=== PATIENT | female | born 1995 | race Caucasian/White ===

== ENCOUNTER 2021-01-01 14:00 | Outpatient (RCR) | payer BC, SELFPAY ==
--- NOTE | 2020-12-25 16:34 | PTOPEVAL ---
INITIAL PHYSICAL THERAPY EVALUATION and PLAN OF CARE Thank you for referring Gabby Holt to [facility] [place].? Gabby is scheduled to be seen for physical therapy? 1x/week for 4 weeks. Please review, sign, date and return this plan of care PIERRE. I agree with and certify that the following plan of care is medically necessary. Referring Physician Date Admitting Provider: Attending Provider: Sylvia Padron MD Referring Provider: Yulissa Rudolph CNM *PT Outpatient Evaluation Start: 12/25/20 15:07 Freq: Status: Active Protocol: Document 12/25/20 15:05 BERNARDINO (Rec: 12/25/20 16:34 BERNARDINO [id number]) Therapy Assessment Status Assessment Status Assessment Status Evaluation Outpatient Past Medical History Past Medical History Source of Past Medical History Patient Musculoskeletal History Hx Fractures Yes: R wrist as a child HEENT History Hx Tonsillectomy Yes Reproductive History Hx Section Yes: 01/11/2020 Evaluation Information Problem Diagnosis Diastisis recti, pelvic floor dysfunction Onset 01/11/2020 Subjective Information with twins - born at Query Text:As Reported By Patient/ 30 wks - 3# 8 oz, 3# 11 oz Family Emergency C section - has had lower back pain and hip pain since surgery. 1 twin was breech, 1 twin was head down - water broke -son's cord was prolapsed - C section happened very quickly Achiness with lower back and hips, stiff in the mornings - takes 1/2 hour for this to loosen up. Sleeps okay. If standing in one spot or carrying children around - will get sore. Bending over is uncomfortable - soreness. 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 Home Meds Must Be Re-entered With Each Visit. Home Setting Home Type Multiple Levels
--- NOTE | 2021-01-24 10:59 | PCPTNOTE ---
Patient called & cancelled scheduled appointments due to having increase in R knee pain. Awaiting work up for R knee before continuing with current PT.
--- NOTE | 2021-01-24 11:24 | PCPTNOTE ---
PHYSICAL THERAPY DISCHARGE SUMMARY Admitting Provider: Attending Provider: Sylvia Padron MD Patient:Gabby Holt Date of :1995 Gabby phoned to cancel her remaining appointments due to having increased R knee pain and wanting to undergo follow up care in regards to her knee. She was last seen 01/01/21, therefore she will be discharged at this time. Patient?s initial visit was on 12/25/2020 15:00 and she had a total of 2 visits. The goals have been partially met. Thank you for referring Gabby to [facility]. Please review, sign, date and return this discharge summary PIERRE. I have been updated about Gabby's current status and I agree with discharge from the above service at this time. Referring Physician Date
== END 2021-01-25 14:43 | disposition home or self-care (01) ==
LOC: ANHPT 14:00
PROVIDERS: PCP Advanced Practice Midwife; Referring Provider Advanced Practice Midwife; Visit Provider Obstetrics & Gynecology
DX: M62.9 Disorder of muscle, unspecified (principal)
CPT/HCPCS: 97110; 97140; 97162

== ENCOUNTER 2023-03-23 09:48 | Inpatient (IN) | payer MEDICAID, SELFPAY ==
[2023-03-23] VITALS (49 sets, daily range): BP systolic 107–143; BP diastolic 62–89; PULSE 59–112; RESP 13–20; TEMP 36.2–37.6; O2SAT 97–100; BMI 33.8
[2023-03-23 10:45] LABS: Basophils Percent Auto 0.3 % (0.2-1.2); Eosinophils Absolute Auto 0.1 K/mm3 (0-0.3); Eosinophils Percent Auto 0.7 % (0-4.4); Hematocrit 36.2 % (37.0-47.0); Immature Granulocyte Absolute 0.05 K/mm3 (0.00-0.031); Immature Granulocyte Percent A 0.5 % (0-0.5); Lymphocytes Absolute Auto 1.69 K/mm3 (0.9-3.2); Lymphocytes Percent Auto 17.8 % (18.3-44.2); Mean Corpuscular HGB Conc 33.1 g/dl (32-36); Mean Corpuscular Hemoglobin 27.5 pg (26-34); Mean Corpuscular Volume 82.8 fl (80-100); Mean Platelet Volume 9.9 fl (7.4-10.4); Monocytes Absolute Auto 0.5 K/mm3 (0.1-0.6); Neutrophils Absolute Auto 7.2 K/mm3 (1.3-6.7); Neutrophils Percent Auto 75.7 % (45.5-73.1); Platelet Count Result 200 k/mm3 (150-375); Red Blood Count 4.37 M/mm3 (4.2-5.4); Red Cell Distribution Width 13.5 % (11.5-14.5); White Blood Count 9.5 K/mm3 (4.5-10.0)
[2023-03-23] MEDS: LACTATED RINGERS 1,000 ML 125 ML IV CONT ×2 (10:52→11:33)
--- NOTE | 2023-03-23 11:26 | WPDANESEPPF ---
Anes - Initial Pre Proc Eval Procedure: Operation Date: 03/23/23 12:00 Proposed Procedures p Repeat Section - Sylvia Padron MD Date/Time: 03/23/23 11:26 Surgeon: Sylvia Padron MD Pre Op Diagnosis: C/S Patient Data Age: 27 Gender: F Height: 1.75 m Weight: 104 kg Last Vital Signs Pulse 108 H 03/23/23 11:16 BP 134/87 03/23/23 11:16 O2 Del Method Room Air 03/23/23 11:09 Allergies Allergy/AdvReac Type Severity Reaction Status Date / Time No Known Allergies Allergy Verified 02/26/23 13:34 Home Medications Medication Instructions Recorded Confirmed Type prenat.vits,blanquita,kxh-sili-feobt 1 tablet 02/26/23 History Laboratory Tests 03/23/23 10:38 WBC 9.5 K/mm3 (4.5-10.0) RBC 4.37 M/mm3 (4.2-5.4) Hgb 12.0 g/dL (12.0-15.0) Hct 36.2 L % (37.0-47.0) MCV 82.8 fl (80-100) MCH 27.5 pg (26-34) MCHC 33.1 g/dl (32-36) RDW 13.5 % (11.5-14.5) Plt Count 200 k/mm3 (150-375) MPV 9.9 fl (7.4-10.4) Immature Gran % (Auto) 0.5 % (0-0.5) Neut % (Auto) 75.7 H % (45.5-73.1) Lymph % (Auto) 17.8 L % (18.3-44.2) [place] % (Auto) 5.0 % (2.6-8.5) Eos % (Auto) 0.7 % (0-4.4) Baso % (Auto) 0.3 % (0.2-1.2) Lymph # (Auto) 1.69 K/mm3 (0.9-3.2) [place] # (Auto) 0.5 K/mm3 (0.1-0.6) Eos # (Auto) 0.1 K/mm3 (0-0.3) Baso # (Auto) 0.0 K/mm3 (0.0-0.1) Abs Immat Gran (auto) 0.05 H K/mm3 (0.00-0.031) Absolute Neuts (auto) 7.2 H K/mm3 (1.3-6.7) Absolute Nucleated RBC 0.0 K/mm3 (0.0-0.012) Nucleated RBC % 0.0 % (0.0-0.2) RPR Pending Blood Type O Positive Antibody Screen Negative Patient hx anesthesia problems: none Family hx anesthesia problems: none Results Review: All pre-operative results and documents have been reviewed as part of the pre-operative evaluation. [facility] Surgical History Surgical History History of section Family History Family History Other Patient denies significant medical history Social History Social History Smoking status: Never smoker Substance use: never Lack of Transportation: No Lack of Food: Never True Current Housing: I Have Housing Concerned About Future Housing: No Difficulty Paying Gas/Electric Bills: No Difficulty Paying for Meds: No Currently Unemployed: No Education: High School Diploma/GED Difficulty w/ Childcare or Family Care: No Spiritual care concerns: No Anes - Eval Final PreProcedure Day of Procedure 03/23/23 11:26 Patient weight: obese Heart: regular rate and rhythm Lungs: clear to auscultation Airway: Mallampati scale class II Neurological: alert and oriented Last oral intake: >/= 8 hours ASA classification: II Emergent: no Anesthetic plan: proceed Anesthesia type and monitoring: regional spinal and standard monitoring Results Review: All pre-operative results and documents have been reviewed as part of the pre-operative evaluation. Informed Consent: The patient's anesthetic plan and its attendant risks and benefits were discussed with the patient/family/POA. Questions were solicited and answers provided to the satisfaction of the patient/family/POA.
--- NOTE | 2023-03-23 12:19 | PM.IMHP ---
H&P: HPI History of Present Illness Date/Time: 03/23/23 12:19 Chief Complaint: Term gestation Narrative: 27-year-old multiparous with a previous delivery presents at term for repeat . She has no complaints. She denies any chest pain or shortness of breath. She denies any nausea, vomiting, fever, chills. She understands there is risk to the procedure. She understands that injuries may occur that result in hospitalization, more surgery, severe illness. Review of Systems Review of Systems: All systems reviewed & are unremarkable except as noted in HPI and below Constitutional: Constitutional: Denies chills, Denies fatigue, Denies fever(s) and Denies weakness Eyes: Eyes: Denies blurry vision, Denies change in vision, Denies loss of peripheral vision, Denies loss of vision, Denies other visual disturbances and Denies eye pain ENT: Denies vertigo, Denies dizziness, Denies hearing loss, Denies mouth pain, Denies nasal obstruction, Denies neck mass and Denies neck pain Cardiovascular: Cardiovascular: Denies chest pain, Denies diaphoresis, Denies syncope, Denies leg edema and Denies dyspnea Respiratory: Respiratory: Denies chest congestion, Denies cough, Denies hemoptysis, Denies dyspnea and Denies wheezing Gastrointestinal: Gastrointestinal: Denies abdominal pain, Denies constipation, Denies diarrhea, Denies nausea and Denies vomiting Genitourinary: Genitourinary: Denies hematuria, Denies change in libido, Denies nocturia, Denies genital lesions, Denies flank pain and Denies urinary urgency Musculoskeletal: Musculoskeletal: Denies abnormal gait, Denies back pain, Denies myalgias, Denies arthralgias, Denies joint swelling, Denies muscle weakness and Denies neck pain Integumentary/Breasts: Skin/Breast: Denies swelling, Denies breast pain, Denies breast mass, Denies dry skin, Denies nipple discharge, Denies unusual bruising and Denies jaundice Neurologic: Denies Neuro-related abnormal movements, Denies Abnormal speech present, Denies abnormal gait, Denies behavioral changes, Denies confusion, Denies vertigo, Denies dizziness, Denies syncope, Denies loss of vision, Denies memory loss, Denies convulsions and Denies weakness Psychiatric: Psychiatric: Denies abnormal sleep pattern, Denies behavioral changes, Denies change in libido, Denies confusion, Denies depression, Denies anhedonia and Denies memory loss Endocrine: Endocrine: Reports no additional endocrine complaints, Denies change in libido and Denies fatigue Hematologic/Lymphatic: Hematologic/Lymphatic: Reports no additional hematologic/lymphatic complaints Allergic/Immunologic: Allergic/Immunologic: Reports no additional allergic/immunologic complaints and Denies wheezing PMFSH Surgical History Surgical History History of section Family History Family History Other Patient denies significant medical history Social History Social History Smoking status: Never smoker Substance use: never Lack of Transportation: No Lack of Food: Never True Current Housing: I Have Housing Concerned About Future Housing: No Difficulty Paying Gas/Electric Bills: No Difficulty Paying for Meds: No Currently Unemployed: No Education: High School Diploma/GED Difficulty w/ Childcare or Family Care: No Spiritual care concerns: No Meds Home Medications and Allergies Home Medications Medication Instructions Recorded Confirmed Type prenat.vits,blanquita,jch-pifq-vmgyq 1 tablet 02/26/23 History Allergies Allergy/AdvReac Type Severity Reaction Status Date / Time No Known Allergies Allergy Verified 02/26/23 13:34 Vital Signs Vital Signs - 24 hr 03/23/23 10:52 03/23/23 11:01 03/23/23 11:16 Pulse Rate 106 H 112 H 108 H Blood Pressure 135/84 131/84 134/87 Oxygen Delivery
[2023-03-23] MEDS: ceFAZolin 2 GM/D5W 50 ML 2 GM/50 ML BAG IVPB (12:24)
--- NOTE | 2023-03-23 12:27 | WPDHPUPDATE1 ---
History and Physical Update Update Date/Time: 03/23/23 12:27 History and Physical has been reviewed, including an updated exam of the patient. There are NO changes in the patient's condition. Risks, benefits, and alternatives have been discussed and questions answered. Patient agrees to proceed with procedure.
--- NOTE | 2023-03-23 13:19 | W.PM.PROC2 ---
Procedure Note - Detailed Date of Procedure 03/23/23 Pre-op Diagnosis C/S, previous Post-op Diagnosis Same Procedure Performed Low-transverse section Surgeon Sylvia Padron MD Anesthesia Spinal Indications previous vicente Findings Normal gestational maternal anatomy, average size infant, normal Apgars. Description of Procedure The patient was taken the operating room. She was prepped and draped in dorsal supine position with a leftward tilt. This was done after spinal anesthetic was applied. A low-transverse skin incision was made and carried down till of the fascia with the knife. The fascial incision was made with the knife. The fascial incision was extended laterally with Parr scissors. The fascia was tented upward superiorly and inferiorly the rectus muscles were dissected off bluntly. The rectus muscles were the midline. The preperitoneal fat and peritoneum were dissected open bluntly at the superior aspect of the rectus muscles. The peritoneal incision was extended superior and inferior with good position of bladder. The uterine incision was made with a scalpel down to the level of the amniotic cavity. The amniotic cavity was entered bluntly. The was delivered. The cord was clamped and cut and the was handed off to waiting pediatric staff. Cord bloods were obtained. The placenta was removed manually. The uterus was exteriorized. The uterus was cleared of all clots, debris and membranes. The uterus was closed in 0 Vicryl running lock fashion. An imbricating over a was placed along the incision line as well. The uterus was returned to the abdomen. The gutters were cleared of all clots and debris. The fascia was closed with 0 Vicryl running fashion. The subcutaneous tissue was irrigated pinpoint bleeders were cauterized. The skin was closed with subcuticular absorbable keisha. The skin incision line was covered with glue. The patient tolerated the procedure well. She has taken recovery room in stable condition. Sponge lap and needle counts were correct x2. Complications No immediate complications Condition Stable Disposition PACU
[2023-03-23] MEDS: OXYTOCIN 30 UNITS/NS 500 ML 30 UNITS/500 ML BAG 125 UNITS IV CONT (14:07)
--- NOTE | 2023-03-23 16:59 | OBPPTRN ---
1547-Patient transferred to post room #282 via stretcher. Support person present. Oriented to unit, room, information board, rooming in, admission packet and security measures. Patient verbalizes understanding.
[2023-03-23] MEDS: DEXTROSE 5%/0.45% SOD CHL 1,000 ML 125 ML IV CONT (18:25)
[2023-03-23] MEDS: IBUPROFEN 600 MG TABLET PO (23:15)
[2023-03-24] MEDS: HYDROcodone/acetaminophen (*CRX) 5-325 MG TABLET 1 TAB PO ×4 (03:58→20:44)
[2023-03-24 04:12] VITALS: BP 110/71; PULSE 92; RESP 18; TEMP 36.8; O2SAT 97
[2023-03-24 04:43] LABS: Basophils Percent Auto 0.3 % (0.2-1.2); Eosinophils Absolute Auto 0.1 K/mm3 (0-0.3); Eosinophils Percent Auto 0.6 % (0-4.4); Hematocrit 29.2 % (37.0-47.0); Hemoglobin 9.6 g/dL (12.0-15.0); Immature Granulocyte Absolute 0.07 K/mm3 (0.00-0.031); Immature Granulocyte Percent A 0.6 % (0-0.5); Lymphocytes Absolute Auto 1.03 K/mm3 (0.9-3.2); Lymphocytes Percent Auto 9.5 % (18.3-44.2); Mean Corpuscular HGB Conc 32.9 g/dl (32-36); Mean Corpuscular Hemoglobin 27.5 pg (26-34); Mean Corpuscular Volume 83.7 fl (80-100); Mean Platelet Volume 10.3 fl (7.4-10.4); Monocytes Absolute Auto 0.7 K/mm3 (0.1-0.6); Monocytes Percent Auto 6.3 % (2.6-8.5); Neutrophils Percent Auto 82.7 % (45.5-73.1); Platelet Count Result 188 k/mm3 (150-375); Red Blood Count 3.49 M/mm3 (4.2-5.4); Red Cell Distribution Width 13.5 % (11.5-14.5); White Blood Count 10.9 K/mm3 (4.5-10.0)
[2023-03-24 07:28] LABS: Rapid Plasma Reagin Non-Reactive (NonReactive)
[2023-03-24 07:35] VITALS: BP 116/68; PULSE 87; RESP 16; TEMP 36.4; O2SAT 98
--- NOTE | 2023-03-24 07:39 | WPDANLDPN2 ---
Anes-Prog Note L&D Date/Time: 03/24/23 07:39 Comfortable throughout: section Neuraxial method: spinal Epidural/Spinal procedure site: clean & non-tender Neuro status: Neuro function grossly intact. Cardiovascular status: normal Respiratory status: normal Airway patency: baseline Mental status: baseline Post-Op hydration status: normal Vital Signs: Last Vital Signs Temp 36.8 C 03/24/23 04:12 Pulse 92 03/24/23 04:12 Resp 18 03/24/23 04:12 BP 110/71 03/24/23 04:12 Pulse Ox 97 03/24/23 04:12 O2 Del Method Room Air 03/24/23 04:12 Pain score (VAS): 2/10 I/O: Intake & Output 03/23/23 03/23/23 03/24/23 15:59 23:59 07:59 Intake Total 1000 1000 600 Output Total 725 1207 1850 Balance [phone] Post-procedural complaints: none Patient feedback: Patient satisfied with anesthetic care.
--- NOTE | 2023-03-24 07:40 | WPDANLDNPN2 ---
Anes-Prog Note L&D-Neuraxial Date/Time: 03/24/23 07:40 Neuraxial medications: intrathecal PF morphine Opiod-related complaints: none Patient feedback: Patient satisfied with post-operative pain management.
[2023-03-24] MEDS: POLYSACCHARIDE IRON COMPLEX 150 MG CAPSULE PO ×2 (08:01→17:03)
[2023-03-24] MEDS: DOCUSATE SODIUM 100 MG CAPSULE PO ×2 (08:02→17:03)
[2023-03-24] MEDS: MULTIVIT/MIN/PREN/FOL AC/IRON TABLET 1 TAB PO (08:02)
[2023-03-24] MEDS: IBUPROFEN 600 MG TABLET PO ×3 (08:02→20:44)
[2023-03-24 12:08] VITALS: BP 103/58; PULSE 79; RESP 16; TEMP 37.2; O2SAT 98
[2023-03-24 20:40] VITALS: BP 109/69; PULSE 86; RESP 16; TEMP 36.8
--- NOTE | 2023-03-25 07:32 | PM.OBPNVD ---
OB - PN: Subj Subjective Date/time seen: 03/25/23 07:32 pp day 2, section flatus present no complaints pain well managed plan d/c home OB - PN: Obj Data Labs 03/24/23 03:48 OB - PN A/P Plan day: 2 Plan: routine care and discharge home Time Spent With Patient Time: Total time spent is greater than 50% in coordination of care (as documented) at patient's floor/unit and/or counseling patient: Review of Systems Review of Systems: All systems reviewed & are unremarkable except as noted in HPI and below Exam Const: General: cooperative and healthy appearing Resp: Effort & Inspection: normal respiratory effort Cardio: Rate: regular rate Rhythm: regular rhythm GI: Other: Incision CDI Skin: General skin exam: normal color Neuro: General: patient oriented x3 Extrem: Right lower extremity: edema (trace bilaterally) Psych: Appearance: grossly normal
--- NOTE | 2023-03-25 07:35 | P.DS_ITS ---
DS: Admitting Diagnosis Discharge Date 03/25/23 Admitting Diagnosis repeat section DS: Discharge Diagnosis Discharge Diagnosis (1) Status post repeat low transverse section: Code(s): Z98.891 - History of uterine scar from previous surgery Status: Acute OB - DS: Summary OB Procedures : None OB Procedures Intrapartum: OB Procedures: : None Peripartum Data Procedures: Procedures Operation Date: 03/23/23 12:00 Actual Procedure Side Surgeon p Repeat Section Not Applicable Sylvia Padron MD Time Spent with Patient Time attestation: Total time spent providing and/or coordinating discharge services: Discharge Plan Discharge Attending physician on discharge: Sylvia Padron Discharging Clinician: Yulissa Rudolph Patient Disposition: Home, Self-Care Activity: pelvic rest Diet: regular Patient Instructions: Antibiotic Form Stand Alone Forms: General Discharge Information, General Discharge Instructions Follow-up/Referrals: Sylvia Padron MD [Physician] - 1 Week Yulissa Rudolph CNM [Certified Nurse Bacteriologist Medical] - Discharge Medications: New hydrocodone-acetaminophen 5-325 mg Tablet 1 tablet PO Q3H PRN (Reason: Moderate Pain (4-6)) Qty: 30 0RF Continued #2 Tablet 1 tablet Date of admission: 03/23/23 09:48 Primary Care Provider: PHYSICIAN,LABORER [employer]UMIN[employer]ING Admitting Provider: Sylvia Padron Attending physician on admission: Sylvia Padron Condition: Stable
[2023-03-25] MEDS: DOCUSATE SODIUM 100 MG CAPSULE PO (07:37)
[2023-03-25] MEDS: POLYSACCHARIDE IRON COMPLEX 150 MG CAPSULE PO (07:37)
[2023-03-25] MEDS: MULTIVIT/MIN/PREN/FOL AC/IRON TABLET 1 TAB PO (07:37)
[2023-03-25] MEDS: IBUPROFEN 600 MG TABLET PO (07:38)
[2023-03-25] MEDS: HYDROcodone/acetaminophen (*CRX) 5-325 MG TABLET 1 TAB PO (07:38)
[2023-03-25 08:05] VITALS: BP 126/77; PULSE 90; RESP 16; TEMP 37.4; O2SAT 97
--- NOTE | 2023-03-25 16:47 | PC.NURSE ---
[id number] Mother led the conversation with her experience, plan to feed her so far and her ability to independently latch optimally without discomfort and successfully breastfed her twins for 18 months. Mother is feeding appropriately for growth of infant and understands stimulating to eat if needed. has had appropriate feedings in the last 24 hours meets the outcomes for weight, output and jaundice at this time. Mother states she is confident to continue effectively her infant at home, when to call for assistance and denies any additional assistance or education at this time. Reinforced understanding of milk production, transition of milk, signs of adequate intake, transition of stool, prevention/relief of engorgement, plugged ducts, mastitis, responsive watching for feeding cues, the different methods of stimulating infant to breastfeed 2-3 hours after the start of the last feeding, community resources and when to call a provider using the resource of the mom and baby guide. Mother voiced understanding of the education shared.
[2023-03-26 10:03] VITALS: BP 124/77; PULSE 74; RESP 20; TEMP 36.9; O2SAT 98
== END 2023-03-25 14:09 | disposition home or self-care (01) | DRG 540 ==
LOC: ANHLDR 10:04 → ANHOB2 15:51
PROVIDERS: Admitting Provider Obstetrics & Gynecology; Visit Provider Obstetrics & Gynecology
PROC: 10D00Z1 Extraction of Products of Conception, Low, Open Approach (ICD-10-PCS; CPT 59514; principal; 2023-03-23 12:00)
DX: O34.211 Maternal care for low transverse scar from previous cesarean delivery (principal); O69.81X0 Labor and delivery complicated by cord around neck, without compression, not applicable or unspecified; Z37.0 Single live birth; Z3A.39 39 weeks gestation of pregnancy
CPT/HCPCS: 36415; 85025; 86592; 86850; 86900; 86901; A9270; J0690; J1885; J2274; J2405; J2590; J7120

== ENCOUNTER 2024-06-11 09:52 | Outpatient (RCR) | payer BC, SELFPAY ==
[2024-06-11 10:42] LABS: Beta HCG Quantitative 108.34 mIU/ML
== END 2024-09-07 23:59 | disposition home or self-care (01) ==
LOC: ANHLAB 09:52
PROVIDERS: Visit Provider Advanced Practice Midwife
DX: N91.2 Amenorrhea, unspecified (principal)
CPT/HCPCS: 36415; 84702

== ENCOUNTER 2024-06-27 16:35 | Outpatient (CLI) | payer BC, SELFPAY ==
[2024-06-28 07:58] LABS: Progesterone 29.6 ng/mL
== END 2024-06-27 16:36 | disposition home or self-care (01) ==
LOC: ANHLAB 16:41
PROVIDERS: Visit Provider Advanced Practice Midwife
DX: O20.0 Threatened abortion (principal); Z3A.00 Weeks of gestation of pregnancy not specified
CPT/HCPCS: 36415; 84144; 84702

== ENCOUNTER 2025-01-25 15:45 | Outpatient (CLI) | payer OTHER, SELFPAY ==
--- OUTSIDE RECORDS SUMMARY | 2025-01-25 15:51 | XMS_ITS | Referral Summary ---
Author Organization [facility] Address [address] [place] [address] Care Team Providers Care Internet Sourcer Name Role Phone Yulissa Rudolph NP Primary Care Provider + [phone] Allergies No known active allergies Medications [id number]-[id number] cb,sb-aceqj-thd- dha 27-1-50-250 mg combo pack Take by mouth Active Active Problems No known active problems Social History Tobacco Use Types Packs/Day Years Used Date Smoking Tobacco: Never Smokeless Tobacco: Never Alcohol Use Standard Drinks/Week Comments Not Currently 0 (1 standard drink = 0.6 oz pur e alcohol) Personal Safety Answer Date Recorded Getting School Help Needed Not on file 09/19 Comments Unknown Sex and Gender Information Value Date Recorded Sex Assigned at Not on file Legal Sex Female 11:20 AM CDT Gender Identity Female 07/01/2019 6:12 PM MOTHER REPAIRER Sexual Orientation Straight 07/01/2019 6: 12 PM MOTHER REPAIRER Last Filed Vital Signs Vital Sign Reading Time Taken Comments Blood Pressure 123/70 08/02/2019 1:01 PM MOTHER REPAIRER Pulse 68 08/02/2019 1:01 PM MOTHER REPAIRER Temperature - - Respiratory Rate - - Oxygen Saturation - - Inhaled Oxygen Concentration - - Weight 76.7 kg (169 lb) 08/02/2019 1:01 PM MOTHER REPAIRER Height 175.3 cm (5' 9) 08/02/2019 1:01 PM MOTHER REPAIRER Body Mass Index 24.96 08/02/2019 1:01 PM MOTHER REPAIRER Plan of Treatment Not on file Insurance [facility] Care Teams Internet Sourcer Relationship Specialty Start Date End Date Yulissa Rudolph NP PCP - General Obstetrics and Gynecology 01/19/19
--- OUTSIDE RECORDS SUMMARY | 2025-01-25 15:52 | XMS_ITS | Clinical Summary ---
Author Organization [facility] Address [address] [place] [address] Care Team Providers Care Customer Care Associate Name Role Phone Unavailable Primary Care Provider Unavailabl e Source Comments [facility],non-owned Affiliates and Associated Physician Practices is amultiple site organization consisting of ambulatory clinics and hospital sitesin [place], [place], [place]. This disclosure is being madepursuant to the Care Everywhere program and may not contain all information available regarding this patient. Last updated 18.[facility] Allergies No known active allergies Medications * Be aware that medications may not be up to date on this document. Alwaysverify current medications with the patient. Prenat w/o S-LyVeSx-ZLW-FA -DHA (PNV OB+DHA) 27-1 & 250 MG MISC Active Progesterone 200 MG capsule Insert 1 (one) capsule into the vagina at bedtime 30 capsule 1 11/24/2022 Active Active Problems Problem Noted Date Diagnosed Date Short cervix affecting 11/25/2022 Current with histo ry of labor, unspecified trimester 11/25/2022 History of delivery 11/25/2022 Obesity (BMI 30-39.9) 11/25/2022 Immunizations Immunization Administration Dates Next Due TDAP (7yrs+) 01/04/2020 Social History Tobacco Use Types Packs/Day Years Used Date Smoking Tobacco: Never Assessed Overall Financial Resource Strain (CARDIA) Answe r Date Recorded How hard is it for you to pa y for the very basics like food, housing, medical care, and heating? Not hard at all 11/24/2022 [employer] [place] [employer] [facility] - Occupational Stress Questionnaire Answer Date Recorded Do you feel stress - tense, restless, nervous, or anxious, or unable to sleep at night because your mind is troubled all the time - these days? Only a little 11/24/2022 Hunger Vital Sign Answer Date Recorded Within the past 12 months, y ou worried that your food would run out before you got the money to buy more. Never true 11/25/19 23 Within the past 12 months, t he food you bought just didn't last and you didn't have money to get more. Never true 11/24/2022 PRAPARE - Transportation Answer Date Re corded In the past 12 months, has l ack of transportation kept you from medical appointments or from getting medications? No 11/04 In the past 12 months, has l ack of transportation kept you from meetings, work, or from getting things needed for daily living? No 11/24/2022 Housing Stability Vital Sign Answer Robby e Recorded In the last 12 months, was t here a time when you were not able to pay the mortgage or rent on time? No 11/24/2022 In the last 12 months, how many places have you lived? 1 11/24/2022 In the last 12 months, was t here a time when you did not have a steady place to sleep or slept in a snf (including now)? No 11/24/2022 Hedrick Depression Scale Answer Date Recorded Hedrick Depression Scale Total 5 11/24/2022 The thought of harming myself has occurred to me . Never 11/24/2022 Comments No Sex and Gender Information Value Date Recorded Sex Assigned at Not on file Legal Sex Female 1:30 PM CDT Gender Identity Not on file Sexual Orientation Not on file Last Filed Vital Signs Vital Sign Reading Time Taken Comments Blood Pressure 119/67 12/04/2022 11:27 AM CDT Pulse 91 12/04/2022 11:27 AM CDT Temperature - - Respiratory Rate - - Oxygen Saturation - - Inhaled Oxygen Concentration - - Weight 99.9 kg (220 lb 3.2 oz) 12/04/2022 11:27 AM CDT Height 175.3 cm (5' 9) 11/24/2022 9:40 AM CDT Body Mass Index 32.52 11/24/2022 9:40 AM CDT Plan of Treatment Health Maintenance Due Date Last Done Comments HEPATITIS B VACCINE (1 of 3 - 19+ 3-dose series) 2015 PAP SMEAR 2017 HPV VACCINE (1 - 3-dose SCDM series) 2023 COVID-19 VACCINE (1 - 2023-2 5 season) 2024 DEPRESSION SCREENING 07/06/2024 INFLUENZA VACCINE (#1) 2025 DTAP/TDAP/TD VACCINES (2 - T d or Tdap) 01/03/2030 01/04/2020 ZOSTER VACCINE (1 of 2) 2046 HEPATITIS C SCREENING Completed 08/31/2019 HIV SCREENING Completed 09/01/2022, 12/23/2019, 08/31/2019 HIB VACCINE Aged Out No longer eligi ble based on patient's age to complete this topic MENINGOCOCCAL (Group B) VACCINE SHARED DECISION-MAKING Aged Out No longer eligible based on patient's age to complete this topic MENINGOCOCCAL GROUPS A/C/Y/W VACCINE Aged Out No longer eligible b ased on patient's age to complete this topic PNEUMOCOCCAL VACCINE Aged Out No long er eligible based on patient's age to complete this topic Insurance [employer]
--- OUTSIDE RECORDS SUMMARY | 2025-01-25 15:52 | XMS_ITS | Encounter Summary ---
Author Organization [facility] Address [address] [place] [address] Phone Care Team Providers Care Account Development Manager Name Role Phone Yulissa Rudolph NP Primary Care Provider + [phone] Encounter Details Date Type Department Care Team (Late st Contact Info) Description 06/06/2019 Orders Only [facility] [address] [id number] Brianna De Leon MD [address] [address] Encounter for fertility testing (Primary Dx); Encounter for other procreative management Social History Tobacco Use Types Packs/Day Years Used Date Smoking Tobacco: Never Smokeless Tobacco: Never Alcohol Use Standard Drinks/Week Comments Not Currently 0 (1 standard drink = 0.6 oz pur e alcohol) Comments Unknown Sex and Gender Information Value Date Recorded Sex Assigned at Not on file Legal Sex Female 11:20 AM CDT Gender Identity Female 07/01/2019 6:12 PM [employer] Sexual Orientation Straight 07/01/2019 6: 12 PM [employer] 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 documented as of this encounter Plan of Treatment Not on file documented as of this encounter Procedures Procedure Name Priority Date/Time Associated Diagnosis Comments PROGESTERONE Routine 06/08/2019 9:17 AM [employer] O[employer] Encounter for fertility testing documented in this encounter Results * Progesterone (06/08/2019 9:17 AM W[employer] PLANT OPER[employer]) Progesterone 28.2 ng/mL [facility] - 01 Comment: Follicular phase 0.1 - 0.9 Luteal phase 1.8 - 23.9 Ovulation phase 0.1 - 12.0 First trimester 11.0 - 44.3 Second trimester 25.4 - 83.3 Third trimester 58.7 - 214.0 Postmenopausal 0.0 - 0.1 Blood specimen (specimen) 06/08/2019 9:17 AM [employer] PL[employer] OPER[employer] 06/08/2019 Narrative [facility] - 06/09/2019 6:08 AM 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
--- OUTSIDE RECORDS SUMMARY | 2025-01-25 15:52 | XMS_ITS | Continuity of Care Document ---
Author Organization [facility], [facility] Address [address] [place] [address] Assessment Encounter Date Assessment Date Assessment LastModified by Organization Details LastModified Time 01/25/2025 01/25/2025 Patient is _36__weeks . Discussed plan. Not available 01/25/2025 16:44:03 Plan of Treatment Reminders Order Date Submit Date Provider Last Modified By Organization Details Last Modified Time Details Appointments OB ROUTINE 2024 03:45P Geronimo Rudolph CNM Not available Not available Not available OB ROUTINE 2024 02:45P Geronimo Rudolph CNM Not available Not available Not available OB ROUTINE 2024 02:45P Geronimo Rudolph CNM Not available Not available Not available SURG CSection 2024 07:30A Geronimo PADRON MD Not available Not available Not available OB ROUTINE 2024 03:00P Geronimo Rudolph CNM Not available Not available Not available SURG POST OP 2024 01:15P Geronimo PADRON MD Not available Not available Not available Lab None recorded. Referral None recorded. Procedures None recorded. Surgeries None recorded. Imaging None recorded. Medication Orders None recorded. Patient TargetsNo targets recorded. Patient InstructionsNo instructions recorded. Reason for Referral None Reported. Results Created Date Observation Date Name Description Value Unit Range Abnormal Flag Note LastModifiedBy Organization Detail LastModifiedTime 08/19/1908/19/2024 CULTU RE: URINE result report SEE RESULT S BELOW Test: Cultu re: Urine Speci men Sourc e: Urine - Clean Catch Speci men Type: Urine Speci men Date: 2024 1103 Resul t Date: 2024 1111 Resul t Statu s: Final resul t Abnor mal: No Resul krishnag Lab: [facility] [address] [facility] [address] Tel: CULTU RE ----- ----- ----- --- Cultu re resul t (>=3 organ isms prese nt) indic ates possi ble conta minat ion. Repea t cultu re if sympt oms indic ate. Not Available [facility] (Lab) [address] [facility], [place], [address], 08/23/2024 01:46:09 08/19/19 25 08/19/2024 CBC W/DIF F WBC 9.6 10'3/ uL 3.5-10 .5 Not Available [facility] (Lab) [address] [place], [address], 08/23/2024 01:46:13 08/19/19 25 08/19/2024 CBC W/DIF F RBC 4.60 10'6/ uL (based on docume nted legal sex) 3.80-5 .20 Not Available [facility] (Lab) [address] [place], [address], 08/23/2024 01:46:13 08/19/19 25 08/19/2024 CBC W/DIF F HGB 13.9 g/dL (based on docume nted legal sex) 11.6-1 5.4 Not Available [facility] (Lab) [address] [place], [address], 08/23/2024 01:46:13 08/19/19 25 08/19/2024 CBC W/DIF F HCT 40.1 % (based on docume nted legal sex) 34.0-4 5.0 Not Available [facility] (Lab) [address] [place], [address], 08/23/2024 01:46:13 08/19/19 25 08/19/2024 CBC W/DIF F MCV 87.2 fL 80.0-9 9.0 Not Available [facility] (Lab) [address], [place], [address], 08/23/2024 01:46:13 08/19/19 25 08/19/2024 CBC W/DIF F MCH 30.2 pg 27.0-3 4.0 Not Available [facility] (Lab) [address], [place], [address], 08/23/2024 01:46:13 08/19/19 25 08/19/2024 CBC W/DIF F MCHC 34.7 g/dL 32.0-3 5.5 Not Available [facility] (Lab) [address], [place], [address], 08/23/2024 01:46:13 08/19/19 25 08/19/2024 CBC W/DIF F RDW 13.0 % 11.0-1 5.0 Not Available [facility] (Lab) [address], [place], [address], 08/23/2024 01:46:13 08/19/19 25 08/19/2024 CBC W/DIF F plt 264 10'3/ uL 150-40 0 Not Available [facility] (Lab) [address], [place], [address], 08/23/2024 01:46:13 08/19/19 25 08/19/2024 CBC W/DIF F MPV 10.3 fL 8.8-12 .1 Not Available [facility] (Lab) [address], [place], [address], 08/23/2024 01:46:13 08/19/19 25 08/19/2024 CBC W/DIF F neutrophils 72.9 % 34.0-7 3.0 Not Available [facility] (Lab) [address], [place], [address], 08/23/2024 01:46:13 08/19/19 25 08/19/2024 CBC W/DIF F lymphocytes 21.8 % 15.0-5 0.0 Not Available [facility] (Lab) [address] [facility], [place], [address], 08/23/2024 01:46:13 08/19/19 25 08/19/2024 CBC W/DIF F monocytes 4.1 % 1.0-15 .0 Not Available [facility] (Lab) [address] [facility], [place], [address], 08/23/2024 01:46:13 08/19/19 25 08/19/2024 CBC W/DIF F eosinophils 0.6 % 0.0-8. 0 Not Available [facility] (Lab) [address] [facility], [place], [address], 08/23/2024 01:46:13 08/19/19 25 08/19/2024 CBC W/DIF F basophils 0.3 % 0.0-2. 0 Not Available [facility] (Lab) [address] [facility], [place], [address], 08/23/2024 01:46:13 08/19/19 25 08/19/2024 CBC W/DIF F immature granulocytes 0.3 % no define d refere nce range Immat ure Granu locyt es (IG) repre sents autom ated enume ratio n of Metam yeloc ytes, Myelo cytes and Promy elocy rodolfo when IG is < 5%. Blast s are not inclu ded in IG and repor bethany separ ately if prese nt. Not Available [facility] (Lab) [address] [facility], [place], [address], 08/23/2024 01:46:13 08/19/19 25 08/19/2024 CBC W/DIF F absolute neutrophils 7.0 10'3/ uL 1.5-8. 0 Not Available [facility] (Lab) [address] [facility], [place], [address], 08/23/2024 01:46:13 08/19/1908/19/2024 CBC W/DIF F absolute lymphocytes 2.1 10'3/ uL 1.0-4. 0 Not Available [facility] (Lab) [address] [facility], [place], [address], 08/23/2024 01:46:13 08/19/19 25 08/19/2024 CBC W/DIF F absolute monocytes 0.4 10'3/ uL 0.2-1. 0 Not Available [facility] (Lab) [address] [facility], [place], [address], 08/23/2024 01:46:13 08/19/19 25 08/19/2024 CBC W/DIF F absolute eosinophils 0.1 10'3/ uL 0.0-0. 6 Not Available [facility] (Lab) [address] [facility], [place], [address], 08/23/2024 01:46:13 08/19/19 25 08/19/2024 CBC W/DIF F absolute basophils 0.0 10'3/ uL 0.0-0. 3 Not Available [facility] (Lab) [address] [facility], [place], [address], 08/23/2024 01:46:13 08/19/1908/19/2024 CBC W/DIF F absolute immature granulocytes 0.0 10'3/ uL 0.00-0 .10 Refer ence range s for nonbi nary/ inter sex or unspe cifie d gende r patie nts have not been estab lishe d. Plejohanny e refer to the lathao wing table for range s estab lishe d for cisge nder patie nts and evalu ate in the clini blanquita nas xt of the indiv idual patie nt: https ://diana taylor book. nm.or g/gen derx Not Available [facility] (Lab) [address] [facility], [place], [address], 08/23/2024 01:46:13 08/19/1908/19/2024 HEMOG LOBIN A1C hemoglobin A1C 5.1 % 4.0-5. 6 The Ameri can Diabe rodolfo Assoc iatio n recom mends that a prima ry goal of thera py shoul d be a HBA1C of < 7% and that physi cians shoul d reeva luate the treat ment regim en in patie nts with HBA1C value s consi stent ly > 8%. <5.7% Gissel l 5.7 - 6.4% Incre ased risk for diabe rodolfo >=6.5 % Diagn ostic of diabe rodolfo <7.0% Goal of thera py >8.0% Actio n sugge sted Not Available [facility] (Lab) [address], [place], [address], 08/23/2024 01:46:13 08/19/1908/19/2024 HEPAT ITIS B SURFA CE ANTIG EN hepatitis B surface antigen Non-re active non-re active This assay was perfo rmed using [employer] ratio n reage nts and test kits. Value s obtai gricelda with other assay metho ds or kits canno t be used inter silva eably . Not Available [facility] (Lab) [address] , [place], [address], 08/23/2024 01:46:14 08/19/1908/19/2024 HIV 1/2 ANTIG EN/AN TIBOD Y, REFLE X CONFI RMATI ON HIV antigen/anti body Nonrea ctive nonrea ctive HIV-1 antig en and HIV-1 /HIV- 2 antib odies were not detec bethany. No labor atory evide nce of HIV infec tion. Not Available [facility] (Lab) [address] , [place], [address], 08/23/2024 01:46:14 08/19/1908/19/2024 TYPE/ RH/SC REEN ABO/Rh type O POS Not Available [facility] (Lab) [address] [facility], [place], [address], 08/23/2024 01:46:14 08/19/1908/19/2024 TYPE/ RH/SC REEN antibody screen NEG Not Available [facility] (Lab) [address] [facility], [place], [address], 08/23/2024 01:46:14 08/19/1908/19/2024 TYPE/ RH/SC REEN exp date 2024 23:59 Not Available [facility] (Lab) [address], [place], [address], 08/23/2024 01:46:14 08/19/1908/19/2024 HEPAT ITIS C ANTIB MARIAM SCREE N, REFLE X TO CONFI RMATI ON hepatitis C antibody Non-re active non-re active Antib odies to HCV Not Detec bethany, does not exclu de the possi bilit y of expos ure to HCV. Not Available [facility] (Lab) [address] [facility], [place], [address], 08/23/2024 01:46:15 08/19/1908/19/2024 RUBEL LA IGG ANTIB MARIAM, QUANT rubella antibodies, IgG Reacti ve reacti ve Not Available [facility] (Lab) [address] [place], [address], 08/23/2024 01:46:15 08/19/1908/19/2024 RUBEL LA IGG ANTIB MARIAM, QUANT rubella antibodies, IgG quant 49.5 IU/mL >=10 Non-r eacti ve (Non- Immun e) <10 IU/mL React darcy (Immu ne) > or = 10 IU/mL Not Available [facility] (Lab) [address] [place], [address], 08/23/2024 01:46:15 08/19/1908/19/2024 RPR SCREE N, REFLE X TITER /CONF IRMAT ION RPR screen Nonrea ctive nonrea ctive Not Available [facility] (Lab) [address], [place], [address], 08/23/2024 01:46:15 08/19/19 25 08/19/2024 drug scree n, urine Amphetamines : negati ve Not Available [facility] [address], [place], [address], 08/19/2024 11:26:58 08/19/19 25 08/19/2024 drug scree n, urine Cannabinoids : negati ve Not Available [facility] [address], [place], [address], 08/19/2024 11:26:58 08/19/19 25 08/19/2024 drug scree n, urine Cocaine: negati ve Not Available [facility] [address], [place], [address], 08/19/2024 11:26:58 08/19/19 25 08/19/2024 drug scree n, urine Opiates: negati ve Not Available [facility] [address], [place], [address], 08/19/2024 11:26:58 08/19/19 25 08/19/2024 drug scree n, urine Phenocyclidi ne: negati ve Not Available [facility] [address], [place], [address], 08/19/2024 11:26:58 08/19/19 25 08/19/2024 drug scree n, urine Barbiturates : negati ve Not Available [facility] [address], [place], [address], 08/19/2024 11:26:58 08/19/19 25 08/19/2024 drug scree n, urine Benzodiazepi harini: negati ve Not Available [facility] [address], [place], [address], 08/19/2024 11:26:58 08/19/19 25 08/19/2024 drug scree n, urine Ethanol: negati ve Not Available [facility] [address], [place], [address], 08/19/2024 11:26:58 08/19/19 25 08/19/2024 drug scree n, urine Hallucinogen s: negati ve Not Available [facility] [address], [place], [address], 08/19/2024 11:26:58 08/19/19 25 08/19/2024 drug scree n, urine Inhalants: negati ve Not Available [facility] [address], [place], [address], 08/19/2024 11:26:58 08/19/19 25 08/19/2024 drug scree n, urine Anabolic Steroids: negati ve Not Available [facility] [address], [place], [address], 08/19/2024 11:26:58 08/19/19 25 08/19/2024 drug scree n, urine Other: negati ve Not Available [facility] [address], [place], [address], 08/19/2024 11:26:58 11/24/19 25 11/23/2024 HEMAT OCRIT (HCT) HCT 37.2 % (based on docume nted legal sex) 34.0-4 5.0 Not Available [facility] (Lab) [address], [place], [address], 11/24/2024 10:47:36 11/24/19 25 11/23/2024 HEMOG LOBIN (HGB) HGB 12.7 g/dL (based on docume nted legal sex) 11.6-1 5.4 Not Available [facility] (Lab) [address], [place], [address], 11/24/2024 10:47:36 11/24/19 25 11/23/2024 GTT - GESTA HERMINIA L SCREE N, ACOG OB glucose, 1 hour screen 91 mg/dL 70-135 Not Available [facility] (Lab) [address], [place], [address], 11/24/2024 10:47:37 11/24/19 25 11/23/2024 HIV 1/2 ANTIG EN/AN TIBOD Y, REFLE X CONFI RMATI ON HIV antigen/anti body Nonrea ctive nonrea ctive HIV-1 antig en and HIV-1 /HIV- 2 antib odies were not detec bethany. No labor atory evide nce of HIV infec tion. Not Available [facility] (Lab) [address], [place], [address], 11/24/2024 10:47:37 11/24/19 25 11/23/2024 RPR SCREE N, REFLE X TITER /CONF IRMAT ION RPR qualitative Nonrea ctive nonrea ctive Not Available [facility] (Lab) [address] [place], [address], 11/24/2024 10:47:38 09/02/19 25 09/02/2024 US, rosannae rasheeda, follo w-up No observ ation record ed. esperanza Vanessae [address], [place], [address], 09/02/2024 17:20:07 09/02/19 25 09/02/2024 US, isra vanessa, limit ed No observ ation record ed. Anabel [address], [place], [address], 09/09/2024 17:47:49 09/02/19 25 09/02/2024 US, obste tric, trans vagin al No observ ation record ed. [facility] [address], [place], [address], 09/02/2024 18:39:20 10/01/19 25 09/30/2024 US, obste tric, 2nd or 3rd trime ster No observ ation record ed. [facility] [address], [place], [address], 09/30/2024 17:48:06 10/01/19 25 09/30/2024 US, obste tric, 2nd or 3rd trime ster No observ ation record ed. [email or web address] [address], [place], [address], 10/04/2024 23:17:32 10/27/19 25 10/26/2024 US, obste tric, follo w-up No observ ation record ed. [email or web address] [place] [address], [place], [address], 10/26/2024 17:51:54 10/27/19 25 10/26/2024 US, obste tric, follo w-up No observ ation record ed. [email or web address] [address], [place], [address], 10/31/2024 23:00:25 11/24/19 25 11/24/2024 US, obste tric, follo w-up No observ ation record ed. [email or web address] [place] [address], [place], [address], 11/24/2024 11:30:24 11/24/19 25 11/23/2024 US, obste tric, follo w-up No observ ation record ed. An[address], [place], [address], 11/30/2024 17:29:27 01/05/20 25 01/04/2025 US, obste tric, follo w-up No observ ation record ed. [email or web address] [address], [place], [address], 01/13/2025 16:11:09 01/05/20 25 01/04/2025 US, obste tric, follo w-up No observ ation record ed. [email or web address] [place] [address], [place], [address], 01/04/2025 17:48:51 Result Notes None recorded. Problems Name Problem SNOMED Code Status Onset Date Resolution Date Notes Provider Name and Address Organization Details Recorded Time Past pregnanc y history of section 959920741 Active x 2 Yulissa Rudolph CNM [address], [place], [address], [facility] 5 13:52:31 Past pregnanc y history of prematur e delivery 468783039 Active cord prolapse , twins 2019 Yulissa Rudolph CNM [address], [place], [address], [facility] 5 13:54:07 Group B Streptoc occus carrier 8330746181 103 Completed bacteriu john Kirk blackman, [facility] 3 14:47:05 Short cervical length in pregnanc y 676852148 Completed Level II schd in [facility] on 11/24 @ 0815 - vaginal progeste mary until delivery Kirk blackman, [facility] 3 14:47:05 Large for gestatio n age fetus 695088939 Completed 98% - possible c/s schedule d 39 wks Kirk blackman, [facility] 3 14:47:05 Past pregnanc y history of prematur e delivery 052163707 Active cord prolapse , twins 2019 Yulissa Rudolph CNM [address], [place], [address], [facility] 5 13:54:06 Past pregnanc y history of section 023654339 Active x 2 Yulissa Rudolph CNM [address], [place], [address], [facility] 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 5 13:52:25 Large for gestatio n age fetus 012046589 Active pregnanc y in 2022 Yulissa Rudolph CNM [address], [place], [address], [facility] 5 13:52:51 Placenta circumva llata 7639365 Active grwoth @ 32wks Jessica blackman, [facility] 5 23:17:10 Dichorio yunior diamniot ic twin pregnanc y 497007461 Completed SERIAL GROWTH U/S Isabel blackman, [facility] 11:35:41 Marginal insertio n of umbilica l cord 81211859 Completed SERIAL GROWTH U/S Isabel blackman, [facility] 11:35:41 Amenorrh ea 06676592 Completed 201708/15/2020 Amenorrh ea;Recor ded Elsewher e: No Locat ion: Keyla moss [facility] S ource: EHR Blending Coordinator yunior: N Practi ce ID: 0001 Manpreet lable Time: 01:00:00 PM Isabel blackman, [facility] 11:31:12 Secondar y amenorrh ea 088156329 Completed 201708/15/2020 Secondar y amenorrh ea;Tashia ice ID: 0001 Isabel Abdul null, [facility] 11:31:38 Finding of pattern of menstrua l cycle Completed 201708/15/2020 Other specifie d irregula r menstrua tion;Rec orded Elsewher e: No Locat ion: Keyla moss [facility] S ource: EHR Blending Coordinator yunior: N Practi ce ID: 0001 Manpreet lable Time: 02:30:00 PM Isabel blackman [facility] 11:31:[address] Concept Completed 201708/15/2020 Encntr for general adult medical exam w/o abnormal findings ;Recorde d Elsewher e: No Locat ion: Keyla moss [facility] S ource: EHR Blending Coordinator yunior: N Practi ce ID: 0001 Manpreet lable Time: 02:00:00 PM Isabel blackman, [facility] 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 11:31:43 Body mass index 25-29 - overweig ht 934792548 Completed 201708/15/2020 Body mass index (BMI) 25.0-25. 9, adult;Re corded Elsewher e: No Locat ion: Keyla moss [facility] S ource: EHR Blending Coordinator yunior: N Practi ce ID: 0001 Manpreet lable Time: 02:00:00 PM Isabel blackman [facility] 11:31:17 Polycyst ic ovary syndrome 105724179 Completed 201801/25/2021 Polycyst ic ovarian syndrome ;Recorde d Elsewher e: No Locat ion: [facility] isa [facility] S ource: EHR Blending Coordinator yunior: N Practi ce ID: 0001 Manpreet lable Time: 11:15:00 AM Isabel blackman, [facility] 11:00:57 Pregnanc y test negative 437962035 Completed 201808/15/2020 Encounte r for pregnanc y test, result negative ;Recorde d Elsewher e: No Locat ion: [facility] S ource: EHR Blending Coordinator yunior: N Practi ce ID: 0001 Manpreet lable Time: 02:00:00 PM Isabel blackman, [facility] 11:31:33 Finding of fertilit y Completed 201808/15/2020 Female infertil ity, unspecif ied;Tevin rded Elsewher e: No [facility] S ource: EHR Blending Coordinator yunior: N Practi ce ID: 0001 Manpreet lable Time: 04:30:00 PM Isabel blackman, [facility] 11:31:24 Pregnanc y detectio n examinat ion Completed 201908/15/2020 Encounte r for pregnanc y test, result positive ;Recorde d Elsewher e: No Locat ion: Rosalina isa [facility] S ource: EHR Blending Coordinator yunior: N Practi ce ID: 0001 Manpreet lable Time: 05:15:00 PM Isabel blackman, [facility] 11:31:31 Twin pregnanc y Completed 201908/15/2020 Twin pregnanc y;Record ed Elsewher e: No Locat ion: Rosalina isa [facility] S ource: EHR Blending Coordinator yunior: N Practi ce ID: 0001 Manpreet lable Time: 08:30:00 AM Isabel blackman, [facility] 11:31:19 Antenata l screenin g Completed 201908/15/2020 Encounte r for other specifie d antenata l screenin g;Record ed Elsewher e: No Locat ion: Keyla moss [facility] S ource: EHR Blending Coordinator yunior: N Dixieti ce ID: 0001 Manpreet lable Time: 08:30:00 AM Isabel blackman, [facility] 11:31:14 Gestatio n period, 12 weeks 76966094 Completed 201908/15/2020 12 weeks gestatio n of pregnanc y;Record ed Elsewher e: No [facility]: EHR Blending Coordinator yunior: N Poonam ce ID: 0001 Manpreet lable Time: 02:30:00 PM Isabel blackman, [facility] 11:31:28 Disorder of labor / delivery Completed 201908/15/2020 Twin pregnanc y, dichorio yunior/diam niotic, first trimeste r;Record ed Elsewher e: No Locat ion: [facility] S ource: EHR Blending Coordinator yunior: N Dixieti ce ID: 0001 Manpreet lable Time: 02:30:00 PM Isabel blackman, [facility] 11:31:21 Pregnanc y, childbir th and puerperi um finding Completed 201908/15/2020 Encntr for suprvsn of normal first preg, second trimeste r;Record ed Elsewher e: No Locat ion: [facility] S ource: EHR Blending Coordinator yunior: N Dixieti ce ID: 0001 Manpreet lable Time: 11:15:00 AM Isabel blackman, [facility] 11:31:36 Twin dichorio yunior diamniot ic placenta 87613977 Completed 201908/15/2020 Serial growth, NSTs @ 32 weeks! Isabel blackman, [facility] 1 11:31:46 Pregnanc y 78778216 Completed 201907/23/2020 Isabel blackman, [facility] 5 11:18:45 Pregnanc y 64727102 Completed 202203/30/2023 Isabel Abdul null, [facility] 5 11:18:45 Past pregnanc y history of section 691244463 Completed 2022 for twins and cord prolapse , in [facility] eld, desires TOLAC Kirk Richards null, [facility] 3 14:47:05 Past pregnanc y history of prematur e delivery 663610467 Completed 2022 twins, 30w Kirk Richards null, [facility] 3 14:47:05 Pregnanc y 88660487 Active 2024 Isabel Abdul null, [facility] 5 11:18:44 Problem Notes None recorded. Procedures Surgical History Date Name Laterality Status Provider Name and Address Organization Details Recorded Time 4 Date of Last Pap Smear completed Isabel Abdul [facility] 03/25/2024 14:26:38 3 Caesarean Section completed Isabel Abdul [facility] 03/25/2024 15:22:08 0 section completed Isabelmimi Abdul [facility] 08/15/2020 11:36:23 7 tonsilectomy/a denoids completed Isabel Abdul [facility] 08/15/2020 11:36:13 Imaging Results None recorded. Procedure Notes None recorded. Medical Equipment None Reported. Allergies No known drug allergies Medications Name Sig Start Date Stop Date Status Note LastModified by Organization Details LastModified Time amoxicill in 500 mg capsule 11/02 completed Not Available Not Available Not Available dicloxaci llin 500 mg capsule TAKE 1 CAPSULE BY MOUTH 4 TIMES DAILY 08/15 completed Not Available Not Available Not Available clomiphen e citrate 50 mg tablet TAKE 3 TABLETS( 150MG) ON DAYS 5-9 OF CYCLE 11/02 completed Not Available Not Available Not Available hydrocodo ne 5 mg-acetam inophen 325 mg tablet TAKE 1 TABLET BY MOUTH EVERY 3 HOURS NEEDED 04/22 completed Not Available Not Available Not Available Prometriu m 100 mg capsule take 2 capsule by oral route every day for 12 days in the evening to induce a cycle. 05/17 completed Prescrib ed Elsewher e: No Locat ion: Keyla moss [facility] Geronimo odify By: maranda faith DateTime : 05/06/20 05:00:52 PM Not Available Not Available Not Available Pregnyl 10,000 unit intramusc ular solution inject ([id number] TS) by intramus cular route x1 dose 11/02 completed Not Available Not Available Not Available ketorolac 10 mg tablet TK 1 T PO Q 6 H FOR 1 DAY 08/15 completed Not Available Not Available Not Available DOK 100 mg capsule TK 1 C PO BID 08/15 completed Not Available Not Available Not Available cephalexi n 500 mg capsule TK 1 C PO Q 6 H 08/15 completed Not Available Not Available Not Available nystatin 100,000 unit/gram topical cream APPLY TO THE AFFECTED AREA TWICE DAILY 08/15 completed Not Available Not Available Not Available progester one micronize d 200 mg capsule TAKE 1 CAPSULE BY MOUTH EVERY DAY FOR 12 DAYS.IF NEGATIVE AT HOME PREGNANC Y TEST 07/20 completed Not Available Not Available Not Available norethind mary acetate 5 mg tablet take1 tablet by oral route every day for 10 consecut darcy days (of each month). 12/08 completed Prescrib ed Elsewher e: No Locat ion: Keyla moss [facility] odify By: [email or web address] z Encoun ter DateTime : 06/15/20 10:15:00 AM Not Available Not Available Not Available letrozole 2.5 mg tablet TAKE 4 TABLETS DAILY FOR 5 DAYS 07/20 completed Not Available Not Available Not Available norethind mary (contrace ptive) 0.35 mg tablet TAKE 1 TABLET BY MOUTH EVERY DAY 10/26 completed Not Available Not Available Not Available morphine 15 mg immediate release tablet 08/15 completed Not Available Not Available Not Available Vitamin 27 mg iron-0.8 mg tablet active Not Available Not Available No t Available progester one 200 mg vaginal supposito ry 04/22 completed Not Available Not Available Not Available iron 08/15 completed Not Available Not Available Not Available 08/15 completed Not Available Not Available Not Available PreviDent 5000 Booster Plus 1.1 % dental paste 08/15 completed Not Available Not Available Not Available Vitals Date Recorded Body height Body mass index (BMI) Body weight Systolic And Diastolic Systolic And Diastolic Provider Name and Address Organization Details Last Updated DateTime 01/25/2025 170.18 cm 34.5 kg/m2 22622.32 g 150/90 mm[Hg] 151/94 mm[Hg] Bezty Huerta [facility] 16:33:08 Social History Question Answer Notes LastModified by Organizat ion Details LastModified Time Tobacco Smoking Status Never Smoker Isabel blackman, [facility] 04/22/2023 10:45:36 Do You Have An Advance Directive? No [email or web address] Information n ot available 10/26/2020 If You Are , What Was Your Level Of Alcohol Consumption Prior To ? None [email or web address] Information not available 04/22/2023 Are You Blind Or Do You Have Difficulty Seeing? No [email or web address] Information n ot available 10/26/2020 What Is Your Level Of Caffeine Consumption? Occasional [email or web address] Information not available 09/30/2024 How Much Tobacco Do You Chew? None [email or web address] Information not available 08/26/2022 In The 14 Days Before Symptom Onset, Have You Had Close Contact With A Laboratory-confirm ed COVID-19 While That Case Was Ill? No [email or web address] Information n ot available 10/26/2020 In The 14 Days Before Symptom Onset, Have You Had Close Contact With A Person Who Is Under Investigation For COVID-19 While That Person Was Ill? No Information not available 10/26/2020 Have You Been To An Area Known To Be High Risk For COVID-19? No [email or web address] Information not available 10/26/2020 Are You Deaf Or Do You Have Serious Difficulty Hearing? No [email or web address] Information not available 10/26/2020 What Type Of Diet Are You Following? REGULAR [email or web address] Information n ot available 05/02/2022 What Is The Highest Grade Or Level Of School You Have Completed Or The Highest Degree You Have Received? [id number] Information not available 10/26/2020 Are There Any Guns Present In Your Home? No [email or web address] Information not available 10/26/2020 Do You Use Protection During Sex? No [email or web address] Information not available 05/02/2022 Do You Use Your Seat Belt Or Car Seat Routinely? Yes [email or web address] Information not available 10/26/2020 Do You Have Smoke And Carbon Monoxide Detectors In Your Home? Yes [email or web address] Information not available 10/26/2020 How Much Tobacco Do You Smoke? No [email or web address] Information not available 08/15/2020 Do You Use Sunscreen Routinely? Yes [email or web address] Information not available 10/26/2020 Has Tobacco Cessation Counseling Been Provided? No [email or web address] Information not available 04/22/2023 Have You Used IV Drugs? No [email or web address] Information not available 10/26/2020 Do You Have Difficulty Walking Or Climbing Stairs? No [email or web address] Information not available 04/22/2023 Sex: Unknown Functional Status Question Answer Note LastModified by Organizat ion Details LastModified Time Do you use any illicit or recreational drugs? No [email or web address] Information not available 08/15/2020 Do you or have you ever used any other forms of tobacco or nicotine? No [email or web address] Information not available 04/22/2023 What is your level of alcohol consumption? None [email or web address] Information not available 08/15/2020 Are you able to walk? YESWOREST [email or web address] Information not available 10/26/2020 Are you able to care for yourself? 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 No [email or web address] Information not available 04/22/2023 What is your exercise level? Occasional [email or web address] Information not available 11/23/2024 Mental Status Question Answer Note LastModified by Organization D etails LastModified Time Do you feel stressed (tense, restless, nervous, or anxious, or unable to sleep at night)? [email or web address] Information not available 09/29/2023 Family History Relationship Description Onset Age of this Age Resolved Age Notes LastModified by Organization Details LastModified Time Father Diabetes mellitus [email or web address] Not available 2019 11:41:49 Paternal Grandmother Diabetes mellitus [email or web address] Not available 2019 11:42:01 Medical History Condition Response Allergies (Food, seasonal, environmental ) Y Other N Breast Cancer N Drug/Latex Allergies/Reactions N Blood Transfusion N Dermatologic Disorders N Lung Disease N Defects or Inherited Disease N Breast Problem N Gestational Diabetes N Hematologic disorders N Anesthesia Complications N History of STI N Deep Vein Thrombosis N Polycystic ovary syndrome Y Anxiety Disorder N Autoimmune disease N Arthritis N Infertility N Polyps N Acid Reflux (GERD) N History of abnormal pap N Cancer N Stroke N Varicosities N Neurologic/Epilepsy N Endometriosis N High Cholesterol N Headaches N Fibromyalgia N Kidney Disease N Heart Problems N Kidney or Bladder Problems N Thyroid Problems N GI Problems N Eating Disorder N Anemia N Art (IVF or FET) N Psychiatric Illness N Ovarian Cancer N Diabetes N Pulmonary (TB, Asthma) N Hepatitis/Liver Disease N No Past Medical History N Eczema N Urinary Tract Infection N Abuse/Domestic Violence N Asthma Y Trauma/Violence N Depression/ depression N Heart Disease N Pre-Eclampsia N Hypertension N Osteoporosis N Thrombophilias N Gynecological History Statement/Question Response Date of Last Mammogram Flow Light Date of LMP 05/14/2024 N Was last menstrual period normal Y STIs/STDs N Date of Last Colonoscopy Desired Control Method N/A Abnormal Pap N On BCP's at Conception? N HPV Vaccine Y Duration of Flow (days) 5 Current Control Method Age at First Child 24 Are cycles usually normal N Sexually Active? N Menses Monthly N Date of DEXA bone scan Age of first menstrual cycle 15 Date of Last Pap Smear 09/29/2023 Sexual Problems? 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 O36.63X0 Z3A.33 [id number] [facility] [address],[place] [address] 01/04/2025 15:20:46 01/04/2025 16:14:06 Gestation period, 33 weeks 25076596 Z3A.33 s ection following previous section 675954987 O34.219 [id number] Milan Padron MD [facility] [address],[place] [address] 01/20/2025 15:20:12 01/20/2025 15:54:50 care status [id number] Z34.83 [id number] Yulissa Rudolph [facility] [address],[place] [address] 01/25/2025 16:25:12 01/25/2025 16:44:53 Gestation period, 36 weeks 28636637 Z3A.36 Health Concerns Section Related Observation LastModified by Organization Detai ls LastModified Time None Recorded Concern Status LastModified by Organization Details LastModified Time None Recorded Payers Encounter Date Sequence Insurance Name Policy Number Policy Fagan Covered Member ID Fagan Member ID Guarantor Name 01/25/2025 1 [facility] - DOS ON OR AFTER 21 (MEDICAID REPLACEMENT - HMO) Gabby Holt [id number] Gabby Holt OBGyn Episode Ob Episode Information Episode Created Date Number of Fetuses Patient Bloodtype Patient rh Status Prepregnancy Weight lbs Domestic Partner Domestic Partner Phone Father Name Shank Taper Status 08/19/19 25 1 O Positive 199 Jordin sims OPEN Fetus Data First Name Last Name Admitted to NICU Weight (g) Sex Living Outcome Pediatric Complications Fetus ID Race Codes Race Delivery Type [id number] Problems Problem Notes Problem Name Start Date End Date Resolution Snomed Code Not e Past history of premature delivery 599784723 cord p rolapse, twins 2020 Large for gestation age fetus 101980987 in Past history of section [id number] x 2 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 grwoth @ 32ks Jerry Calculation Initial Jerry Date Initial Exam Date Initial Exam Provider Initial Ultrasound Date Last Menstrual Period Date Ultra Sound Weeks Gestation 02/18/2025 07/07/2024 Yulissa Chaudharygle 07/07/2024 05/14/2024 7 Eighteen To Twenty Week Jerry Update Ultra Sound Date Fundal Height At Umbil Quickening Date Ultra Sound Latest Weeks Gestation Final Jerry Confirmed By Final Jerry Confirmed Date Final Jerry Date Ultra Sound Latest Days Gestation 0 02/19/20 25 0 Pre- Flowsheet Flowsheet Date 08/19/2024 Becerra Score Blood Edema Fundus Height Fundus Units Glucose Ketones Leukocytes Nitrite Labor Signs Protein Cervic Dilation Cervic Effacement Cervic Station neg none Type Weight in lbs Pre/Post Dialysis Refused Weight 204.960365340348 BP Diastolic BP Location Tested BP Systolic BP Type 79 149 Fetus Heart Rate Present Fetus Movement A No Comments +FHR by US by CNM, reviewed history, plans rpt csection, start routine care, has CL sheduled for 16 weeks Flowsheet Date 09/02/2024 Becerra Score Blood Edema Fundus Height Fundus Units Glucose Ketones Leukocytes Nitrite Labor Signs Protein Cervic Dilation Cervic Effacement Cervic Station Type Weight in lbs Pre/Post Dialysis Refused BP Diastolic BP Location Tested BP Systolic BP Type Fetus Heart Rate Present Fetus Movement Comments Flowsheet Date 09/02/2024 Becerra Score Blood Edema Fundus Height Fundus Units Glucose Ketones Leukocytes Nitrite Labor Signs Protein Cervic Dilation Cervic Effacement Cervic Station neg none Type Weight in lbs Pre/Post Dialysis Refused 203.31501376157 BP Diastolic BP Location Tested BP Systolic BP Type 73 126 Fetus Heart Rate Present Fetus Movement A Yes Comments anatomy scan here, CL today 3.5 cm, no cramping, doing well, +FHR, precautions and education f/u 4 weeks Flowsheet Date 09/30/2024 Becerra Score Blood Edema Fundus Height Fundus Units Glucose Ketones Leukocytes Nitrite Labor Signs Protein Cervic Dilation Cervic Effacement Cervic Station Type Weight in lbs Pre/Post Dialysis Refused BP Diastolic BP Location Tested BP Systolic BP Type Fetus Heart Rate Present Fetus Movement Comments Flowsheet Date 09/30/2024 Becerra Score Blood Edema Fundus Height Fundus Units Glucose Ketones Leukocytes Nitrite Labor Signs Protein Cervic Dilation Cervic Effacement Cervic Station neg none Type Weight in lbs Pre/Post Dialysis Refused 211.710531539337 BP Diastolic BP Location Tested BP Systolic BP Type 72 125 Fetus Heart Rate Present Fetus Movement A Yes Comments anatomy incomplete +FM, prec autions and education CL wnl f/u 4 weeks Flowsheet Date 10/26/2024 Becerra Score Blood Edema Fundus Height Fundus Units Glucose Ketones Leukocytes Nitrite Labor Signs Protein Cervic Dilation Cervic Effacement Cervic Station Type Weight in lbs Pre/Post Dialysis Refused BP Diastolic BP Location Tested BP Systolic BP Type Fetus Heart Rate Present Fetus Movement Comments Flowsheet Date 10/26/2024 Becerra Score Blood Edema Fundus Height Fundus Units Glucose Ketones Leukocytes Nitrite Labor Signs Protein Cervic Dilation Cervic Effacement Cervic Station neg none Type Weight in lbs Pre/Post Dialysis Refused 215.727052372310 BP Diastolic BP Location Tested BP Systolic BP Type 78 125 Fetus Heart Rate Present Fetus Movement A Yes Comments anatomy incomplete doing wel l efw 31%, cvx 4 cm, +FM, plan 4 week f/u education and precautions Flowsheet Date 11/23/2024 Becerra Score Blood Edema Fundus Height Fundus Units Glucose Ketones Leukocytes Nitrite Labor Signs Protein Cervic Dilation Cervic Effacement Cervic Station Type Weight in lbs Pre/Post Dialysis Refused BP Diastolic BP Location Tested BP Systolic BP Type Fetus Heart Rate Present Fetus Movement Comments Flowsheet Date 11/23/2024 Becerra Score Blood Edema Fundus Height Fundus Units Glucose Ketones Leukocytes Nitrite Labor Signs Protein Cervic Dilation Cervic Effacement Cervic Station neg none Type Weight in lbs Pre/Post Dialysis Refused 218.351528637020 BP Diastolic BP Location Tested BP Systolic BP Type 77 128 Fetus Heart Rate Present Fetus Movement A Yes Comments US today for LGA, will rpt i n later third trimester, GCT today, education and precautions, start q 2 week visits f/u 2 weeks Flowsheet Date 12/09/2024 Becerra Score Blood Edema Fundus Height Fundus Units Glucose Ketones Leukocytes Nitrite Labor Signs Protein Cervic Dilation Cervic Effacement Cervic Station neg none Type Weight in lbs Pre/Post Dialysis Refused Weight 219.327566827354 BP Diastolic BP Location Tested BP Systolic BP Type 77 133 Fetus Heart Rate Present A 148 Present Fetus Movement A Yes Comments Patient is having BH contrac tion. reviewed PTL precautions, doing well +FM, will schedule c/s on a thursday per pt. f/u 2 weeks Flowsheet Date 12/23/2024 Becerra Score Blood Edema Fundus Height Fundus Units Glucose Ketones Leukocytes Nitrite Labor Signs Protein Cervic Dilation Cervic Effacement Cervic Station neg none Type Weight in lbs Pre/Post Dialysis Refused Weight 221.509710655262 BP Diastolic BP Location Tested BP Systolic BP Type 75 116 Fetus Heart Rate Present Fetus Movement A Yes Comments +FM, US at nxt visit,doing w ell, no complaints, call for preadmission, education and precautions f/u 2 weeks Flowsheet Date 01/04/2025 Becerra Score Blood Edema Fundus Height Fundus Units Glucose Ketones Leukocytes Nitrite Labor Signs Protein Cervic Dilation Cervic Effacement Cervic Station Type Weight in lbs Pre/Post Dialysis Refused BP Diastolic BP Location Tested BP Systolic BP Type Fetus Heart Rate Present Fetus Movement Comments Flowsheet Date 01/04/2025 Becerra Score Blood Edema Fundus Height Fundus Units Glucose Ketones Leukocytes Nitrite Labor Signs Protein Cervic Dilation Cervic Effacement Cervic Station Type Weight in lbs Pre/Post Dialysis Refused 223.961945043744 BP Diastolic BP Location Tested BP Systolic BP Type 81 L arm 127 sitting Fetus Heart Rate Present Fetus Movement A Yes Comments efw 75% doing well +FM, had tdap, education and precautions, schedule section Flowsheet Date 01/20/2025 Becerra Score Blood Edema Fundus Height Fundus Units Glucose Ketones Leukocytes Nitrite Labor Signs Protein Cervic Dilation Cervic Effacement Cervic Station Type Weight in lbs Pre/Post Dialysis Refused Weight 220.690564704148 BP Diastolic BP Location Tested BP Systolic BP Type 82 L arm 138 sitting Fetus Heart Rate Present A 148 Present Fetus Movement A Yes Comments no complaints, no problems, routine care, no contractions, no vaginal bleeding, no loss of fluid, no cramping Flowsheet Date 01/25/2025 Becerra Score Blood Edema Fundus Height Fundus Units Glucose Ketones Leukocytes Nitrite Labor Signs Protein Cervic Dilation Cervic Effacement Cervic Station Type Weight in lbs Pre/Post Dialysis Refused Weight 220.823293446009 BP Diastolic BP Location Tested BP Systolic BP Type 90 L arm 150 sitting 94 R arm 151 sitting Fetus Heart Rate Present A 152 Present Fetus Movement A Yes Comments some slight swelling, +FM, c an feel her bp elevate, to ld for evaluation Menstrual History Last Menstrual Date Menses Monthly On Bcp Conception Prior Menses Frequency Hcg Plus Date Menarche Onset Age 1105/14/2023 Delivery Information Delivery Date Delivery Type Labor Anesthesia Weeks Gestation Incision Type Labor Labor Length Hrs Delivered By Post Complications Tubal Sterilization Discharge Date Comments Discharge Information Feeding Method Contraceptive Method Maternal HG B and HCT Levels
--- OUTSIDE RECORDS SUMMARY | 2025-01-25 15:52 | XMS_ITS | Clinical Summary ---
Author Organization [facility] Address [address] [place] [id number] Care Team Providers Care Dry Room Attendant Name Role Phone None, Provider MD Primary Care Provider Unavaila ble Allergies No known active allergies Medications PREVIDENT 5000 BOOSTER PLUS 1.1 % Paste Take 1 each by mouth see administration instructions. 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 Family History Medical History Relation Comments No Known Problems Brother Diabetes Father No Known Problems Mother No Known Problems Sister 1 No Known Problems Sister 2 Relation Status Comments Brother Alive Father Alive Mother Alive Sister 1 Alive Sister 2 Alive Social History Tobacco Use Types Packs/Day Years Used Date Smoking Tobacco: Never Smokeless Tobacco: Never Alcohol Use Standard Drinks/Week Comments Not Currently 0 (1 standard drink = 0.6 oz pur e alcohol) Comments No Sex and Gender Information Value Date Recorded Sex Assigned at Not on file Legal 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 Gender Identity Not on file Sexual Orientation Not on file Last Filed Vital Signs Vital Sign Reading Time Taken Comments Blood Pressure 116/74 01/15/2020 8:47 AM CDT Pulse 75 01/15/2020 8:47 AM CDT Temperature 36.6 C (97.9 F) 01/15/2020 8:47 AM CDT Respiratory Rate 18 01/15/2020 9:00 AM CDT Oxygen Saturation 99% 01/11/2020 10:13 PM CDT Inhaled Oxygen Concentration - - Weight 81.6 kg (180 lb) 01/15/2021 2:50 PM CDT Height 170.2 cm (5' 7) 01/15/2021 2:50 PM CDT Body Mass Index 28.19 01/15/2021 2:50 PM CDT Plan of Treatment Health Maintenance Due Date Last Done Comments Annual Physical 1999 Hepatitis C 2014 Hepatitis B Vaccines (1 of 3 - 19+ 3-dose series) 2015 HPV Vaccines (1 - 3-dose SCDM series) 2023 Cervical Cancer Screening Pap Smear (Age 21 to 29) Every 3 Years 01/26/2024 01/25/2021, 01/25/2021, 01/25/2021, Additional history exists Cervical Cancer Screening 01/26/2024 COVID-19 Vaccine (2023- season) 2024 DTaP, Tdap and Td Vaccines (2 - Td or Tdap) 01/03/2030 01/04/2020 Chlamydia Screening Females ages 16-24 Discontinued 01/25/2021, 10/26/2020 Meningococcal B Vaccine Aged Out No l onger eligible based on patient's age to complete this topic Meningococcal Vaccine Aged Out No jose char eligible based on patient's age to complete this topic Pneumococcal Vaccine: Pediatrics (0 to 5 Years) and At-Risk Patients (6 to 49 Years) Aged Out No longer eligible based on patient's age to complete this topic RSV Immunizations Under 20 Months Aged Out No longer eligible based on patient's age to complete this topic Insurance [facility] Advance Directives * Full Code (Latest Code Status on File) Date Activated Date Inactivated Comments 01/11/2020 7:45 PM 01/15/2020 4:22 PM Care Teams Dry Room Attendant Relationship Specialty Start Date End Date None, Provider, PCP - General 01/11/20
--- OUTSIDE RECORDS SUMMARY | 2025-01-25 15:52 | XMS_ITS | Data Portability ---
Author Organization [facility] Address [address] [place] [address] Assessment Encounter Date Assessment Date Assessment LastModified by Organization Details LastModified Time 12/23/2024 12/23/2024 Patient is _31__weeks . Discussed plan. [email or web address] Not available 12/23/2024 21:47:53 01/04/2025 01/04/2025 Patient is __33_weeks . Discussed plan. [email or web address] Not available 01/04/2025 16:10:21 01/20/2025 01/20/2025 Patient is ___weeks . Discussed plan. [email or web address] Not available 01/20/2025 15:30:27 01/25/2025 01/25/2025 Patient is _36__weeks . Discussed plan. [email or web address] Not available 01/25/2025 16:44:03 Plan of Treatment [...] Not available SURG CSection 2024 07:30A Geronimo STOKES MD Not available Not available Not available OB ROUTINE 2024 03:00P Geronimo Rudolph CNM Not available Not available Not available SURG POST OP 2024 01:15P Geronimo STOKES MD Not available Not available Not available Lab None recorded. Referral None recorded. Procedures None recorded. Surgeries section (SURG) 2024 025 [email or web address] [facility], [address], [place], [address], 01/10/2025 09:33:10 Imaging US, obstetric , follow-up 2024 025 [email or web address] [facility], [facility] [address], [place], [address], 01/06/2025 22:15:55 Medication Orders None recorded. Patient TargetsNo targets recorded. Patient InstructionsNo instructions recorded. Reason for Referral None Reported. Results Created Date Observation Date Name Description Value Unit Range Abnormal Flag Note LastModifiedBy Organization Detail LastModifiedTime 11/24/19 25 11/23/2024 HEMAT OCRIT (HCT) HCT 37.2 % (based on docume nted legal sex) 34.0-4 5.0 Not Available [facility] (Lab) [address], [place], [address], 11/24/2024 10:47:36 11/24/19 25 11/23/2024 HEMOG LOBIN (HGB) HGB 12.7 g/dL (based on docume nted legal sex) 11.6-1 5.4 Not Available [facility] (Lab) [address], [place], [address], 11/24/2024 10:47:36 11/24/19 25 11/23/2024 GTT - GESTA HERMINIA L LEXA Med[place], ACOG OB glucose, 1 hour screen 91 mg/dL 70-135 Not Available [facility] (Lab) [address], [place], [address], 11/24/2024 10:47:37 11/24/19 25 11/23/2024 HIV 1/2 ANTIG EN/AN TIBOD Y, REFLE X CONFI RMATI ON HIV antigen/anti body Nonrea ctive nonrea ctive HIV-1 antig en and HIV-1 /HIV- 2 antib odies were not detec bethany. No labor atory evide nce of HIV infec tion. Not Available [facility] (Lab) [address], [place], [address], 11/24/2024 10:47:37 11/24/19 25 11/23/2024 RPR SCREE N, REFLE X TITER /CONF IRMAT ION RPR qualitative Nonrea ctive nonrea ctive Not Available [facility] (Lab) [address], [place], [address], 11/24/2024 10:47:38 11/24/19 25 11/24/2024 US, obste tric, follo w-up No observ ation record ed. [email or web address] [facility] [address], [place], [address], 11/24/2024 11:30:24 11/24/19 25 11/23/2024 US, obste tric, follo w-up No observ ation record ed. Anabel [address], [place], [address], 11/30/2024 17:29:27 01/05/20 25 01/04/2025 US, obste tric, follo w-up No observ ation record ed. [email or web address] [address] [address], [place], [address], 01/13/2025 16:11:09 01/05/20 25 01/04/2025 US, obste tric, follo w-up No observ ation record ed. [email or web address] [facility] [address], [place], [address], 01/04/2025 17:48:51 Result Notes None recorded. Problems Name Problem SNOMED Code Status Onset Date Resolution Date Notes Provider Name and Address Organization Details Recorded Time Past pregnanc y history of section 467203557 Active x 2 Yulissa Rudolph CNM [address], [place], [address], [facility] 5 13:52:31 Past pregnanc y history of prematur e delivery 237613363 Active cord prolapse , twins 2019 Yulissa Rudolph CNM [address], [place], [address], [facility] 5 13:54:07 Group B Streptoc occus carrier 7207053103 103 Completed bacteriu john Kirk blackman, [facility] 3 14:47:05 Short cervical length in pregnanc y 690612863 Completed Level II schd in [facility] on 11/24 @ 0815 - vaginal progeste mary until delivery Kirk blackman, [facility] 3 14:47:05 Large for gestatio n age fetus 426746418 Completed 98% - possible c/s schedule d 39 wks Kirk blackman, [facility] 3 14:47:05 Past pregnanc y history of prematur e delivery 108666665 Active cord prolapse , twins 2019 Yulissa Rudolph CNM [address], [place], [address], [facility] 5 13:54:06 Past pregnanc y history of section 404961735 Active x 2 Yulissa Rudolph CNM [address], [place], [address], [facility] 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 5 13:52:25 Large for gestatio n age fetus 112732394 Active pregnanc y in 2022 Yulissa Rudolph, ZORAIDA [address], [place], [address], [place] [facility] 5 13:52:51 Placenta circumva llata 5869828 Active grwoth @ 32wks Jessica Cason null, [facility] 5 23:17:10 Dichorio yunior diamniot ic twin pregnanc y 114969714 Completed SERIAL GROWTH U/S Isabel Abdul [facility], [facility] 11:35:41 Marginal insertio n of umbilica l cord 88365390 Completed SERIAL GROWTH U/S Isabel Abdul [facility], [facility] 11:35:41 Amenorrh ea 16923101 Completed 201708/15/2020 Amenorrh ea;Recor ded Elsewher e: No [facility] E[facility] Edge Bander Hand yunior: N Practi ce ID: 0001 Manpreet lable Time: 01:00:00 PM Isabel blacmkan, [facility] 11:31:12 Secondar y amenorrh ea 075153969 Completed 201708/15/2020 Secondar y amenorrh ea;Pract ice ID: 0001 Isabel Abdul [facility], [facility] 11:31:38 Finding of pattern of menstrua l cycle Completed 201708/15/2020 Other specifie d irregula r menstrua tion;Rec orded Elsewher e: No Locat ion: Keyla moss [facility] S ource: EHR Edge Bander Hand yunior: N Practi ce ID: 0001 Manpreet lable Time: 02:30:00 PM Isabel Abdul [facility], [facility] 11:31:[address] Concept Completed 201708/15/2020 Encntr for general adult medical exam w/o abnormal findings ;Recorde d Elsewher e: No Locat ion: Maggisarah isa [facility] S ource: EHR Edge Bander Hand yunior: N Dixieti ce ID: 0001 Manpreet lable Time: 02:00:00 PM [facility] 11:31:[address] Concept Completed 201708/15/2020 Encntr for medical insurance biller exam (general ) (routine ) w/o abn findings ;Recorde d Elsewher e: No Locat ion: Maggiilia isa [facility] S ource: EHR Edge Bander Hand yunior: N Dixieti ce ID: 0001 Manpreet lable Time: 02:00:00 PM Isabel Abdul [facility], [facility] 11:31:43 Body mass index 25-29 - overweig ht 600945375 Completed 201708/15/2020 Body mass index (BMI) 25.0-25. 9, adult;Re corded Elsewher e: No Locat ion: Maggiilia isa [facility] S ource: EHR Edge Bander Hand yunior: N Dixieti ce ID: 0001 Manpreet lable Time: 02:00:00 PM Isabel Abdul [facility] 11:31:17 Polycyst ic ovary syndrome 454662144 Completed 201801/25/2021 Polycyst ic ovarian syndrome ;Recorde d Elsewher e: No Locat ion: [facility] S ource: EHR Edge Bander Hand yunior: N Practi ce ID: 0001 Manpreet lable Time: 11:15:00 AM Isabel Abdul [facility] 11:00:57 Pregnanc y test negative 386608161 Completed 201808/15/2020 Encounte r for pregnanc y test, result negative ;Recorde d Elsewher e: No Locat ion: Keyla moss [facility] S ource: EHR Edge Bander Hand yunior: N Practi ce ID: 0001 Manpreet lable Time: 02:00:00 PM Isabel blackman, [facility] 11:31:33 Finding of fertilit y Completed 201808/15/2020 Female infertil ity, unspecif ied;Tevin rded Elsewher e: No Locat ion: [facility] S ource: EHR Edge Bander Hand yunior: N Dixieti ce ID: 0001 Manpreet lable Time: 04:30:00 PM Isabel blackman, [facility] 11:31:24 Pregnanc y detectio n examinat ion Completed 201908/15/2020 Encounte r for pregnanc y test, result positive ;Recorde d Elsewher e: No Locat ion: [facility] S ource: EHR Edge Bander Hand yunior: N Dixieti ce ID: 0001 Manpreet lable Time: 05:15:00 PM Isabel blackman, [facility] 11:31:31 Twin pregnanc y Completed 201908/15/2020 Twin pregnanc y;Record ed Elsewher e: No Locat ion: [facility] S ource: EHR Edge Bander Hand yunior: N Dixieti ce ID: 0001 Manpreet lable Time: 08:30:00 AM Isabel blackman, [facility] 11:31:19 Antenata l screenin g Completed 201908/15/2020 Encounte r for other specifie d antenata l screenin g;Record ed Elsewher e: No Locat ion: [facility] S ource: EHR Edge Bander Hand yunior: N Dixieti ce ID: 0001 Manpreet lable Time: 08:30:00 AM Isabel blackman, [facility] 11:31:14 Gestatio n period, 12 weeks 83125331 Completed 201908/15/2020 12 weeks gestatio n of pregnanc y;Record ed Elsewher e: No Locat ion: Keyla [facility] S ource: EHR Edge Bander Hand yunior: N Practi ce ID: 0001 Manpreet lable Time: 02:30:00 PM Isabel blackman, [facility] 11:31:28 Disorder of labor / delivery Completed 201908/15/2020 Twin pregnanc y, dichorio yunior/diam niotic, first trimeste r;Record ed Elsewher e: No Locat ion: [facility] S ource: EHR Edge Bander Hand yunior: N Practi ce ID: 0001 Manpreet lable Time: 02:30:00 PM Isabel blackman, [facility] 11:31:21 Pregnanc y, childbir th and puerperi um finding Completed 201908/15/2020 Encntr for suprvsn of normal first preg, second trimeste r;Record ed Elsewher e: No Locat ion: [facility] S ource: EHR Edge Bander Hand yunior: N Dixieti ce ID: 0001 Manpreet lable Time: 11:15:00 AM Isabel blackman, [facility] 11:31:36 Twin dichorio yunior diamniot ic placenta 13566093 Completed 201908/15/2020 Serial growth, NSTs @ 32 weeks! Isabel blackman, [facility] 1 11:31:46 Pregnanc y 97934358 Completed 201907/23/2020 Isabel blackman, [facility] 5 11:18:45 Pregnanc y 32390111 Completed 202203/30/2023 Isabel blackman, [facility] 5 11:18:45 Past pregnanc y history of section 614084687 Completed 2022 for twins and cord prolapse , in eld, desires TOLAC Kirk Richards null, [facility] 3 14:47:05 Past pregnanc y history of prematur e delivery 325945636 Completed 2022 twins, 30w Kirk Richards null, [facility] 3 14:47:05 Pregnanc y 24837003 Active 2024 Isabelmimi Abdul [facility], [facility] 5 11:18:44 Problem Notes None recorded. Procedures Surgical History Date Name Laterality Status Provider Name and Address Organization Details Recorded Time 4 Date of Last Pap Smear completed [facility] 03/25/2024 14:26:38 3 Caesarean Section completed [facility] 03/25/2024 15:22:08 0 section completed [facility] 08/15/2020 11:36:23 7 tonsilectomy/a denoids completed [facility] 08/15/2020 11:36:13 Imaging Results None recorded. [...] Prescrib ed Elsewher e: No Locat ion: Maggiilia isa [facility] odify By: maranda faith DateTime : 05/06/20 [...] Prescrib ed Elsewher e: No Locat ion: [facility] isa [facility] odify By: [email or web address] z Encoun ter DateTime [...] index (BMI) Body weight Systolic And Diastolic Provider Name and Address Organization Details Last Updated DateTime 12/23/2024 170.18 cm 34.6 kg/m2 732481.91 g 116/75 mm[Hg] Isabel Abdul [facility] 12/23/2024 16:43:35 Date Recorded Body weight Body mass index (BMI) Body height Systolic And Diastolic Provider Name and Address Organization Details Last Updated DateTime 01/04/2025 415781.09 851 g 34.9 kg/m2 170.18 cm 127/81 mm[Hg] Orquidea [facility] 01/04/2025 15:49:07 Date Recorded Body height Body mass index (BMI) Body weight Systolic And Diastolic Provider Name and Address Organization Details Last Updated DateTime 01/20/2025 170.18 cm 34.5 kg/m2 22133.32 g 138/82 mm[Hg] Orquidea [facility] 01/20/2025 15:31:38 Date Recorded Body height Body mass index (BMI) Body weight Systolic And Diastolic Systolic And Diastolic Provider Name and Address Organization Details Last Updated DateTime 01/25/2025 170.18 cm 34.5 kg/m2 30448.32 g 150/90 mm[Hg] 151/94 mm[Hg] Betzy Huerta [facility] 16:33:08 Social History Question Answer Notes LastModified by Organizat ion Details LastModified Time Tobacco Smoking Status Never Smoker Isabel Abdul [facility] 04/22/2023 10:45:36 Do You Have An Advance Directive? No [email or web address] Information n ot available 10/26/2020 If You Are , What Was Your Level Of Alcohol Consumption Prior To ? None [email or web address] Information not available 04/22/2023 Are You Blind Or Do You Have Difficulty Seeing? No [email or web address] Information n ot available 10/26/2020 What Is Your Level Of Caffeine Consumption? Occasional [email or web address] Information not available 09/30/2024 How Much Tobacco Do You Chew? None [email or web address] Information not available 08/26/2022 In The 14 Days Before Symptom Onset, Have You Had Close Contact With A Laboratory-confirm ed COVID-19 While That Case Was Ill? No [email or web address] Information n ot available 10/26/2020 In The 14 Days Before Symptom Onset, Have You Had Close Contact With A Person Who Is Under Investigation For COVID-19 While That Person Was Ill? No Information not available 10/26/2020 Have You Been To An Area Known To Be High Risk For COVID-19? No [email or web address] Information not available 10/26/2020 Are You Deaf Or Do You Have Serious Difficulty Hearing? No [email or web address] Information not available 10/26/2020 What Type Of Diet Are You Following? REGULAR [email or web address] Information n ot available 05/02/2022 What Is The Highest Grade Or Level Of School You Have Completed Or The Highest Degree You Have Received? [id number] [email or web address] Information not available 10/26/2020 Are There Any Guns Present In Your Home? No Information not available 10/26/2020 Do You Use Protection During Sex? No [email or web address] Information not available 05/02/2022 Do You Use Your Seat Belt Or Car Seat Routinely? Yes Information not available 10/26/2020 Do You Have Smoke And Carbon Monoxide Detectors In Your Home? Yes Information not available 10/26/2020 How Much Tobacco Do You Smoke? No [email or web address] Information not available 08/15/2020 Do You Use Sunscreen Routinely? Yes [email or web address] Information not available 10/26/2020 Has Tobacco Cessation Counseling Been Provided? No [email or web address] Information not available 04/22/2023 Have You Used IV Drugs? No [email or web address] Information not available 10/26/2020 Do You Have Difficulty Walking Or Climbing Stairs? No [email or web address] Information not available 04/22/2023 Sex: Unknown Functional Status Question Answer Note LastModified by Organizat ion Details LastModified Time Do you use any illicit or recreational drugs? No Information not available 08/15/2020 Do you or have you ever used any other forms of tobacco or nicotine? No [email or web address] Information not available 04/22/2023 What is your level of alcohol consumption? None [email or web address] Information not available 08/15/2020 Are you able to walk? YESWOREST [email or web address] Information not available 10/26/2020 Are you able to care for yourself? 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 No [email or web address] Information not available 04/22/2023 What is your exercise level? Occasional [email or web address] Information not available 11/23/2024 Mental Status Question Answer Note LastModified by Organization D etails LastModified Time Do you feel stressed (tense, restless, nervous, or anxious, or unable to sleep at night)? [id number] [email or web address] Information not available 09/29/2023 Family History Relationship [...] SNOMED-CT Code Diagnosis ICD10 Code Diagnosis Note 2571 Milan Stokes MD [facility] [address],[place] [address] 11/03/2019 09:54:35 11/03/2019 12:21:02 Dichorionic diamniotic twin 774550988 O30.009 2573 Milan Stokes MD [facility] [address],[place] [address] 11/03/2019 09:56:00 11/03/2019 16:09:58 screening for malformation 786182269 Z36.3 5615 Milan Stokes MD [facility] [address],[place] [address] 12/01/2019 11:25:21 12/01/2019 13:20:25 screening 904578105 O30.042 Z3A.24 screening for malformation 105073412 Z36.3 5616 Milan Stokes MD [facility] [address],[place] [address] 12/01/2019 11:26:09 12/01/2019 13:20:45 Dichorionic diamniotic twin 991953727 O30.009 9189 Milan Stokes MD [facility] [address],[place] [address] 12/27/2019 15:10:49 12/27/2019 16:50:18 Dichorionic diamniotic twin 204585729 O30.043 O43.93 Z36.2 Z3A.28 9190 Milan Stokes MD [facility] [address],[place] [address] 12/27/2019 15:11:07 12/27/2019 17:48:03 Routine care 798803375 Z34.82 Dichorioni c diamniotic twin 902372380 O30.043 O43.93 Z36.2 Z3A.28 01951 Milan Stokes MD [facility] [address],[place] [address] 01/18/2020 18:00:28 01/18/2020 18:56:12 Wound cellulitis 584492703 L03.90 This patient is a 24-year-ol d female who is one-week postop from a delivery. She had emergency delivery. Premature rupture membranes for twins at 30 weeks. The twins are fine and off any respirator y support. She may have cellulitis . The wound is closed and intact, but, has induration and erythema, mild, around the incision site. She is going to start antibiotic s. She will return in 1 week. [id number] Milan Stokes MD [facility] [address],[place] [address] 01/26/2020 09:06:09 01/26/2020 09:56:15 Infection of obstetric surgical wound 995300619 O86.00 This patient is a 24-year-ol d female presents for follow-up on suspected surgical incision problem. She had induration and erythema of her incision site from her . She had a for twins.The delivery was at 30 weeks.Inci sions today is clean dry and intact. There isno erythema and no induration . She agreed to follow-up in2 weeks for routine visit. [id number] Yulissa Rudolph CNM [facility] [address],[place] [address] 08/15/2020 11:01:40 08/15/2020 12:10:42 Contraception care management 250318588 Z30.9 11503 Yulissa Rudolph CNM [facility] [address],[place] [address] 10/26/2020 15:07:42 10/26/2020 15:58:33 Gynecologic examination 65545144 Z01.[address] [facility] [address],[place] [address] 01/25/2021 10:48:49 01/25/2021 11:16:47 Sampling of vagina for Papanicolaou smear 401988302 Z01.[id number] [facility] [address],[place] [address] 05/02/2022 15:11:28 05/02/2022 16:07:32 Gynecologic examination 21454634 Z01.419 Z11.3 Z11.8 Irregular periods 302903 07 N92.6 Trying to conceive 11589 9001 Z31.9 reviewed se risks and benefits including risk of ovarian hyperstimu lation, multiple gestation, cross, if any severe abd pain to ED would like to try meds without IUI this first monthhando ut given will start cycle and cycle monthly with prometrium , letrozole days 3-7 pt wants to do 7,5, did not ovulate previously on 5mg, plan to check progestero ne level [id number] Milan Stokes MD [facility] [address],[place] [address] 08/07/2022 10:46:25 08/07/2022 11:54:12 [id number] Milan Stokes MD [facility] [address],[place] [address] 08/26/2022 11:53:15 08/26/2022 12:36:07 Uncertain viability of 860201022 O36.80X0 Z3A.[id number] [facility] [address],[place] [address] 08/26/2022 12:20:44 08/27/2022 17:14:18 Amenorrhea 61664390 N91.2 Venereal d isease screening 193272142 Z11.3 test positive 839476004 Z32.01 Risk factors addressed: Tobacco Cessation, Safe Sexual Practices, environmen edwina, work hazards, travel restrictio ns, seat belt use.Eat a health well balanced diet, avoid alcohol, tobacco, and street drugs.Enga ge in daily low impact exercise, avoid temperatur e extremes, and cat, rodent, and bird feces.Avoi d travel to areas where zika virus is a concern.Of fered cf/sma/nip t. Handouts given and discussed with patient.Ch ildbirth classes recommende d.New OB sheet given.Hist ory of . Pt has asked about makeena. Will check benefits.I f previous , counseling .Pt verbalizes that she understand s the importance of above instructio ns.All questions were answered.P atient reminded to have annual well woman examinatio n and address [facility] . [id number] Betzy Ng MD [facility] [address],[place] [address] 09/17/2022 15:11:10 09/17/2022 15:50:21 screening 383697647 Z36.82 [id number] Betzy Ng MD [facility] [address],[place] [address] 09/17/2022 15:12:09 09/17/2022 17:31:36 Routine care 783120507 Z34.91 Past pregn dominic history of section 219578640 Z98.890 interested in TOLAC Past pregn dominic history of premature delivery 312313823 Z87.51 twins, 30w [id number] [facility] [address],[place] [address] 10/15/2022 16:42:15 10/15/2022 17:35:12 Routine care 265144921 Z34.92 [id number] Betzy Ng MD [facility] [address],[place] [address] 11/12/2022 13:45:08 11/12/2022 15:05:25 screening for malformation 645549472 Z36.[id number] [facility] [address],[place] [address] 11/12/2022 14:56:29 11/12/2022 15:50:10 Routine care 325682103 Z34.[id number] [facility] [address],[place] [address] 12/10/2022 15:07:25 12/10/2022 16:25:31 Routine care 090151821 Z34.92 [id number] Milan Stokes MD [facility] [address],[place] [address] 01/07/2023 11:20:19 01/07/2023 14:25:19 High risk 63047969 O09.293 Z3A.[id number] [facility] [address],[place] [address] 01/07/2023 11:21:42 01/07/2023 14:31:37 Routine care 432640849 Z34.[id number] [facility] [address],[place] [address] 01/23/2023 13:52:27 01/23/2023 14:12:21 Routine care 556263567 Z34.92 [id number] Milan Stokes MD [facility] [address] [place] [address] 01/30/2023 14:20:01 01/30/2023 15:26:25 care: poor obstetric history 555614696 O09.293 Z87.51 Z3A.31 [id number] Milan Stokes MD [facility] [address] [place] [address] 01/30/2023 14:23:02 01/30/2023 15:51:21 care: poor obstetric history 701829324 O09.[id number] [facility] [address] [place] [address] 01/30/2023 14:24:18 01/30/2023 16:28:30 Routine care 060169863 Z34.92 [id number] MD Corrine Vickers [address],[place] [address] 02/06/2023 14:22:57 02/06/2023 17:25:49 care: poor obstetric history 476982007 O09.293 Z3A.32 [id number] MD Corrine Vickers [address] [address],[place] [address] 1 02/06/2023 14:24:34 02/06/2023 15:45:04 care: poor obstetric history [id number] O09.[id number] [facility] [address],[place] [address] 1 02/06/2023 14:24:34 02/06/2023 15:45:04 Routine care [id number] Z34.92 [id number] MD Corrine Vickers [address],[place] [address] 1 02/13/2023 14:31:24 02/13/2023 17:11:19 care: poor obstetric history [id number] O09.293 Z3A.33 [id number] Milan Stokes MD [facility] [address],[place] [address] 1 02/13/2023 14:33:10 02/13/2023 15:50:54 care: poor obstetric history [id number] O09.293 [id number] [facility] [address],[place] [address] 1 02/13/2023 14:33:50 02/13/2023 16:20:35 Routine care [id number] Z34.92 [id number] MD Corrine Vickers [address],[place] [address] 1 02/20/2023 14:40:56 02/20/2023 15:19:02 care: poor obstetric history [id number] O09.293 O36.60X0 Z3A.34 [id number] [facility] [address],[place] [address] 1 02/20/2023 14:42:16 02/20/2023 15:58:36 Routine care [id number] Z34.92 s ection following previous section [id number] O34.219 [id number] MD Corrine Vickers [address],[place] [address] 1 02/20/2023 14:42:16 02/20/2023 15:58:36 care: poor obstetric history [id number] O09.293 [id number] MD Corrine Vickers [address],[place] [address] 1 02/27/2023 14:32:55 02/27/2023 15:20:38 Large for gestation age fetus [id number] O36.63X0 Z3A.35 [id number] Milan Stokes MD [facility] [address],[place] [address] 1 02/27/2023 14:35:35 02/27/2023 15:37:07 care: poor obstetric history [id number] O09.293 [id number] [facility] [address],[place] [address] 1 02/27/2023 14:36:07 02/27/2023 16:01:29 Routine care [id number] Z34.92 [id number] Milan Stokes MD [facility] [address],[place] [address] 1 03/06/2023 14:24:18 03/06/2023 15:13:18 care: poor obstetric history [id number] O09.293 Z3A.36 [id number] Milan Stokes MD [facility] [address],[place] [address] 1 03/06/2023 14:24:41 03/06/2023 15:56:08 care: poor obstetric history [id number] O09.293 [id number] [facility] [address],[place] [address] 1 03/06/2023 14:25:03 03/06/2023 16:24:41 Routine care [id number] Z34.92 [id number] [facility] [address],[place] [address] 1 03/13/2023 14:19:14 03/13/2023 16:40:50 Routine care [id number] Z34.93 [id number] Milan Stoeks MD [facility] [address],[place] [address] 1 03/13/2023 14:18:14 03/13/2023 16:16:27 care: poor obstetric history [id number] O09.293 O36.63X0 Z3A.37 [id number] MD Corrine Vickers [address],[place] [address] 1 03/13/2023 14:18:52 03/13/2023 16:16:16 care: poor obstetric history [id number] O09.293 [id number] MD Corrine Vickers [address],[place] [address] 1 03/20/2023 14:27:43 03/20/2023 15:02:58 care: poor obstetric history [id number] O09.293 O36.60X0 Z3A.38 [id number] Milan Stokes MD [facility] [address],[place] [address] 1 03/20/2023 14:28:05 03/20/2023 16:27:13 Gestational diabetes mellitus 59124620 O24.410 [id number] [facility] [address],[place] [address] 1 03/20/2023 14:28:52 03/20/2023 15:58:34 Routine care [id number] Z34.93 [id number] Milan Stokes MD [facility] [address],[place] [address] 1 03/24/2023 10:12:05 03/24/2023 10:14:19 [id number] Milan Stokes MD [facility] [address],[place] [address] 1 03/31/2023 10:41:31 03/31/2023 11:48:33 Postoperative care [id number] Z48.89 this patient is 27-year-ol d female presents for postop follow-up. She has no complaints . She is 1 week postop from a delivery. Her incision was clean dry and intact. Her mood is good. Her baby is doing well. She will follow-up in 3 weeks. [id number] Yulissa Rudolph CNM [facility] [address],[place] [address] 1 04/22/2023 10:19:47 04/22/2023 11:13:36 care [id number] Z39.2 normal pp visit f/u wweif desires bcm may startor may want to cycle every 2 months with prometrium does not need appt to discuss [id number] GE Benites [facility] [address],[place] [address] 1 09/29/2023 13:53:51 09/29/2023 14:35:20 Gynecologic examination 85965938 Z01.419 WWEBC - declinedpa p updateddec lined STI screenenco uraged annual exam with PCPRTC in 1 yr or sooner if needed Take Calcium with Vitamin D daily if not receiving in daily diet.It is strongly advised to have an annual flu shot and up can obtain at most pharmacies . If you have not had a TDap shot in the last 10 years you should obtain one as well. Discussed with patient & provided with informatio n regarding Gardisil vaccine to prevent the 4 strains for HPV that cause cervical cancer if under age 26.Encoura ge safe sexual practices, to use condoms and limit partners if not already in a monogamous relationsh ip.Do monthly self breast exams. Engage in daily exercise of low impact aerobic exercise 45-60 minutes 4-5 times weekly. Avoid tobacco and illicit drugs. This lifestyle behavior pattern will lead to less health conditions and longer life span. If BMI greater than 25 dietary consult advised. Patient received above instructio ns, and questions have been answered. If you have any questions please call or respond to this email. Patient was made aware of the patient portal and may obtain a paper copy of today's plan if desired. Polycystic ovary syndrome [id number] E28.2 BC declined, prefers to restart cyclic prometrium (Q3 months) for endometria l protection rx sent, r/b/a reviewed [id number] Yulissa Rudolph CNM [facility] [address],[place] [address] 1 03/25/2024 15:11:02 03/25/2024 15:43:26 Irregular periods 06500718 N92.6 Amenorrhea 87805312 N91. 2 unless progestero [place] [id number] Milan Stokes MD [facility] [address],[place] [address] 1 06/30/2024 14:08:51 06/30/2024 16:16:52 screening 470463945 Z36.87 Z3A.01 [id number] Milan Stokes MD [facility] [address],[place] [address] 1 07/07/2024 09:00:28 07/07/2024 10:00:05 Twins with discordant growth 029566897 O36.5999 Z3A.01 [id number] Milan Stokes MD [facility] [address],[place] [address] 1 07/13/2024 12:17:59 07/13/2024 13:56:30 [id number] Milan Stokes MD [facility] [address],[place] [address] 1 07/19/2024 13:22:48 07/19/2024 14:01:41 Threatened miscarriage 56329309 O20.0 O31.10X9 Z3A.09 [id number] Yulissa Rudolph CNM [facility] [address],[place] [address] 1 07/20/2024 13:55:34 07/20/2024 14:53:12 Venereal disease screening 539894804 Z11.3 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 devries inue vitamin Gestation period, 9 weeks 642015 Z3A.09 [id number] Milan Stokes MD [facility] [address],[place] [address] 1 08/09/2024 11:59:04 08/09/2024 12:49:51 screening 810512558 Z36.82 Z3A.12 [id number] Yulissa Rudolph CNM [facility] [address],[place] [address] 1 08/19/2024 10:49:04 08/19/2024 14:19:22 Routine care 467722350 Z34.93 Gestation period, 13 weeks [id number] Z3A.13 [id number] Milan Stokes MD [facility] [address],[place] [address] 1 09/02/2024 16:15:59 09/05/2024 06:42:48 Medical examination for suspected condition 467521082 Z03.75 Z3A.15 [id number] Yulissa Rudolph CNM [facility] [address],[place] [address] 1 09/02/2024 16:16:16 09/05/2024 01:34:02 Gestation period, 15 weeks 3468734 Z3A.15 Short cerv ical length in 415973187 O26.879 [id number] Milan Stokes MD [facility] [address],[place] [address] 1 09/30/2024 15:46:29 10/03/2024 08:55:07 screening for malformation 863227324 Z36.3 Z3A.19 [id number] [facility] [address],[place] [address] 1 09/30/2024 15:50:08 10/03/2024 07:26:59 Gestation period, 20 weeks [id number] Z3A.20 continue vitamin [id number] Milan Stokes MD [facility] [address],[place] [address] 1 10/26/2024 14:16:40 10/26/2024 15:34:50 anatomy study 638836376 Z36.2 O43.112 Z3A.[id number] [facility] [address],[place] [address] 1 10/26/2024 14:17:04 10/28/2024 03:36:40 Gestation period, 23 weeks [id number] Z3A.23 [id number] Milan Stokes MD [facility] [address],[place] [address] 1 11/23/2024 15:45:47 11/23/2024 16:58:37 Follow-up encounter 288056573 Z36.2 anatomy study 2714 78772 Z36.2 Z3A.27 [id number] [facility] [address],[place] [address] 1 11/23/2024 15:47:01 11/23/2024 16:21:42 Gestation period, 27 weeks 76589382 Z3A.27 Past pregn dominic history of premature delivery 786316083 Z87.51 [id number] [facility] [address],[place] [address] 1 12/09/2024 15:20:26 12/09/2024 16:02:07 Gestation period, 29 weeks 17736145 Z3A.29 cont pnv [id number] [facility] [address],[place] [address] 1 12/23/2024 16:35:45 12/25/2024 22:01:23 Gestation period, 31 weeks 16456446 Z3A.31 cont pnv [id number] Milan Stokes MD [facility] [address],[place] [address] 1 01/04/2025 15:20:13 01/04/2025 16:14:12 Placenta circumvallata [id number] O43.113 O36.63X0 Z3A.[id number] [facility] [address],[place] [address] 1 01/04/2025 15:20:46 01/04/2025 16:14:06 Gestation period, 33 weeks [id number] Z3A.33 s ection following previous section [id number] O34.219 [id number] Milan Stokes MD [facility] [address],[place] [address] 1 01/20/2025 15:20:12 01/20/2025 15:54:50 care status [id number] Z34.[id number] [facility] [address],[place] [address] 1 01/25/2025 16:25:12 01/25/2025 16:44:53 Gestation period, 36 weeks 76760755 Z3A.36 Health Concerns Section Related Observation LastModified by Organization Detai ls LastModified Time None Recorded Concern Status LastModified by Organization Details LastModified Time None Recorded Advance Directives Directive N: Payers Insurance Date Sequence Insurance Name Policy Number Policy Fagan Covered Member ID Fagan Member ID Guarantor Name 09/30/2024 1 [employer] [place] ON [place] AFTER 2020 (MEDICAID REPLACEMENT - HMO) Gabby Holt [id number] Gabby Holt 08/08/2024 1 [place] [id number] Jordin Holt [id number] Gabby Holt 08/17/2024 1 *SELF PAY* Sukhwinder Holt 01/12/2025 1 [place] Gabby Holt [id number] Gabby Holt 01/20/2025 1 [employer] [facility] [place] - DOS ON OR AFTER 21 (MEDICAID REPLACEMENT - HMO) Gabby Holt [id number] Gabby Yanet 09/30/2024 2 [employer] [place] AFTER 2020 ([place] REPLACEMENT - HMO) Gabby Holt [id number] Gabby Yanet 01/14/2025 2 [employer] 2020 ([place] - HMO) Gabby Holt [id number] Gabby Yanet 02/11/2023 1 [place] [id number] Jordin Holt [id number] Gabby Yanet 04/01/2024 1 *SELF PAY* Sukhwinder Holt 02/11/2023 1 [place] [id number] Jordin Holt [id number] Gabby Yanet 06/30/2024 1 [place] [id number] Jordin Holt [id number] Gabby Yanet 09/30/2024 1 [place] Gabby Holt [id number] Gabby Holt 01/12/2025 2 [employer] ([place]) [id number] Jordin Holt [id number] Gabby Holt 04/15/2023 PAYMENT PLAN Gabby Holt 10/02/2023 1 *SELF PAY* Sukhwinder Holt 09/30/2024 1 [employer] [place] ON [place] AFTER 2020 (MEDICAID REPLACEMENT - HMO) Gabby Holt [id number] Gabby Holt OBGyn Episode Ob Episode Information Episode Created Date Number of Fetuses Patient Bloodtype Patient rh Status Prepregnancy Weight lbs Domestic Partner Domestic Partner Phone Father Name Mica Layer Status 11/03/19 20 2 O Positive 171 CLOSED Fetus Data First Name Last Name Admitted to NICU Weight (g) Sex Living Outcome Pediatric Complications Fetus ID Race Codes Race Delivery Type 1672.62 05 M true Prematur e Baby A - PPROM & cord prolapseBaby B - Fe 983 Primary 1530.87 3 F true Prematur e 7813 Primary Problems Problem Notes Problem Name Start Date End Date Resolution Snomed Code Not e Marginal insertion of umbilical cord 23940514 SERIAL GROWTH U/S Dichorionic diamniotic twin 814816698 SERIAL GROWTH U/S Jerry Calculation Initial Jerry Date Initial Exam Date Initial Exam Provider Initial Ultrasound Date Last Menstrual Period Date Ultra Sound Weeks Gestation 03/23/2020 11/03/2019 08/17/2019 06/15/2019 8 Eighteen To Twenty Week Jerry Update Ultra Sound Date Fundal Height At Umbil Quickening Date Ultra Sound Latest Weeks Gestation Final Jerry Confirmed By Final Jerry Confirmed Date Final Jerry Date Ultra Sound Latest Days Gestation 0 [email or web address] 11/03/2019 03/21/20 20 0 Pre- Flowsheet Flowsheet Date 11/03/2019 Becerra Score Blood Edema Fundus Height Fundus Units Glucose Ketones Leukocytes Nitrite Labor Signs Protein Cervic Dilation Cervic Effacement Cervic Station 25 trace Type Weight in lbs Pre/Post Dialysis Refused Weight 194.159045448710 BP Diastolic BP Location Tested BP Systolic BP Type 72 122 Fetus Heart Rate Present A 150 Fetus Movement Comments Flowsheet Date 12/01/2019 Becerra Score Blood Edema Fundus Height Fundus Units Glucose Ketones Leukocytes Nitrite Labor Signs Protein Cervic Dilation Cervic Effacement Cervic Station Type Weight in lbs Pre/Post Dialysis Refused BP Diastolic BP Location Tested BP Systolic BP Type Fetus Heart Rate Present Fetus Movement Comments Flowsheet Date 12/01/2019 Becerra Score Blood Edema Fundus Height Fundus Units Glucose Ketones Leukocytes Nitrite Labor Signs Protein Cervic Dilation Cervic Effacement Cervic Station 30 trace Type Weight in lbs Pre/Post Dialysis Refused Weight 205.941000762560 BP Diastolic BP Location Tested BP Systolic BP Type 81 123 Fetus Heart Rate Present A 143,133 Fetus Movement A Yes Comments Patient is a 24-year-old fem harriet 1 at 24 weeks gestation with dichorionic diamniotic twins. We agreed to weight restriction of 35 pounds for work. She she has no problems at this time. There is an incomplete anatomy ultrasound for baby B. They will be repeated in 4 weeks. Flowsheet Date 12/27/2019 Becerra Score Blood Edema Fundus Height Fundus Units Glucose Ketones Leukocytes Nitrite Labor Signs Protein Cervic Dilation Cervic Effacement Cervic Station Type Weight in lbs Pre/Post Dialysis Refused BP Diastolic BP Location Tested BP Systolic BP Type Fetus Heart Rate Present Fetus Movement Comments Flowsheet Date 12/27/2019 Becerra Score Blood Edema Fundus Height Fundus Units Glucose Ketones Leukocytes Nitrite Labor Signs Protein Cervic Dilation Cervic Effacement Cervic Station 34 trace Type Weight in lbs Pre/Post Dialysis Refused Weight 214.755826252585 BP Diastolic BP Location Tested BP Systolic BP Type 71 124 Fetus Heart Rate Present A 131 Fetus Movement A Yes Comments Normal heart tones x2, patient denies any symptoms of labor. Normal blood pressure, completed anatomy today ultrasound joseph. EIF resolved, concordant growth, marginal cord insertion Flowsheet Date 01/18/2020 Becerra Score Blood Edema Fundus Height Fundus Units Glucose Ketones Leukocytes Nitrite Labor Signs Protein Cervic Dilation Cervic Effacement Cervic Station Type Weight in lbs Pre/Post Dialysis Refused Weight 198.955269478685 BP Diastolic BP Location Tested BP Systolic BP Type 95 157 94 159 Fetus Heart Rate Present Fetus Movement Comments Flowsheet Date 01/26/2020 Becerra Score Blood Edema Fundus Height Fundus Units Glucose Ketones Leukocytes Nitrite Labor Signs Protein Cervic Dilation Cervic Effacement Cervic Station Type Weight in lbs Pre/Post Dialysis Refused Weight 180.515349211609 BP Diastolic BP Location Tested BP Systolic BP Type 77 123 Fetus Heart Rate Present Fetus Movement Comments Flowsheet Date 08/15/2020 Becerra Score Blood Edema Fundus Height Fundus Units Glucose Ketones Leukocytes Nitrite Labor Signs Protein Cervic Dilation Cervic Effacement Cervic Station Type Weight in lbs Pre/Post Dialysis Refused Weight 175.599670538040 BP Diastolic BP Location Tested BP Systolic BP Type 81 122 Fetus Heart Rate Present Fetus Movement Comments Menstrual History Last Menstrual Date Menses Monthly On Bcp Conception Prior Menses Frequency Hcg Plus Date Menarche Onset Age 1206/15/2019 Genetic Screening And Infection History Question Response Note Mental Retardation/Autism false Patient's Age Will Be 35 Years Or Older At Estim ated Date of Delivery false Thalassemia (German, Cambodian, Mediterranean, Or Background): MCV < 80 false Neural Tube Defect (Meningomyelocele, Spina Bifi da, Or Anencephaly) false Congenital Heart Defect false Down Syndrome false Man-Sachs (eg, Christian, Cajun, Portuguese-Gibraltarian) f alse Elisa Disease false Sickle Cell Disease Or Trait () false Hemophilia Or Other Blood Disorders false Muscular Dystrophy false Cystic Fibrosis false Snook's Chorea false Intellectual Disability/Autism false If Yes, Was Person Tested For Fragile X? false Other Inherited Genetic Or Chromosomal Disorder false Maternal Metabolic Disorder (eg, Type 1 Diabetes , PKU) false Patient Or Baby's Father Had A Child With Defects Not Listed Above false Recurrent Loss, Or A Stillbirth false Medications (including Suppl ements, Vitamins, Herbs, OTC Drugs), Illicit/Recreational Drugs, Alcohol false If Yes, Agent(s) And Strength/Dosage false Any Other Genetic History false Live With Someone With TB Or Exposed To TB false Patient Or Partner Has History Of Genital Herpes false Rash Or Viral Illness Since Last Menstrual Perio d false History Of STD, Gonorrhea, Chlamydia, HPV, Syphi lis false Other Infection History false History of HIV false History of Hepatitis false Prior GBS-infected child false Hemoglobinopathy Or Carrier false Other Structural Defect false Recent Travel History Outside of Country false Delivery Information Delivery Date Delivery Type Labor Anesthesia Weeks Gestation Incision Type Labor Labor Length Hrs Delivered By Post Complications Tubal Sterilization Discharge Date Comments 0 Sponta neous 30 Low Transvers e false transferr ed Discharge Information Feeding Method Contraceptive Method Maternal HG B and HCT Levels Ob Episode Information Episode Created Date Number of Fetuses Patient Bloodtype Patient rh Status Prepregnancy Weight lbs Domestic Partner Domestic Partner Phone Father Name Mica Layer Status 09/18/19 23 1 O Positive 208 CLOSED Fetus Data First Name Last Name Admitted to NICU Weight (g) Sex Living Outcome Pediatric Complications Fetus ID Race Codes Race Delivery Type 4518.91 03 M true Full Term [id number] Repeat Problems Problem Notes conceived using letrozole Problem Name Start Date End Date Resolution Snomed Code Not e Group B Streptococcus carrier 3911060847901 bacteriuria Past history of section 09/17/2022 084437842 for twins and c ord prolapse, in [place], desires TOLAC Past history of premature delivery 09/17/2022 387442271 twins, 30w Short cervical length in 333683915 Level II schd i n [facility] on 11/24 @ 0815 - vaginal progesterone until delivery Large for gestation age fetus 190444484 98% - possible c/s scheduled 39 wks Jerry Calculation Initial Jerry Date Initial Exam Date Initial Exam Provider Initial Ultrasound Date Last Menstrual Period Date Ultra Sound Weeks Gestation 03/28/2023 09/17/2022 08/26/2022 06/21/2022 9 Eighteen To Twenty Week Jerry Update Ultra Sound Date Fundal Height At Umbil Quickening Date Ultra Sound Latest Weeks Gestation Final Jerry Confirmed By Final Jerry Confirmed Date Final Ejrry Date Ultra Sound Latest Days Gestation 0 [email or web address] 09/17/2022 03/28/20 23 0 Pre-sebastian Flowsheet Flowsheet Date 09/17/2022 Becerra Score Blood Edema Fundus Height Fundus Units Glucose Ketones Leukocytes Nitrite Labor Signs Protein Cervic Dilation Cervic Effacement Cervic Station neg none none trace Type Weight in lbs Pre/Post Dialysis Refused Weight 208.400263153162 BP Diastolic BP Location Tested BP Systolic BP Type 66 112 Fetus Heart Rate Present A 165 Fetus Movement A No Comments Gabby is a 27yo at 12.4 for care. Her last was complicated by a twin delivery at 30w by CS for PROM and cord prolapse. She delivered in [place], where she was closest to when it happened. She has had normal NT and NIPT this so far. She is interested in a TOLAC this . We discussed RBA of both TOLAC and R CS, including the catastrophic risks of a uterine rupture. Routine care. Flowsheet Date 10/15/2022 Becerra Score Blood Edema Fundus Height Fundus Units Glucose Ketones Leukocytes Nitrite Labor Signs Protein Cervic Dilation Cervic Effacement Cervic Station neg none none trace Type Weight in lbs Pre/Post Dialysis Refused Weight 211.733394163536 BP Diastolic BP Location Tested BP Systolic BP Type 77 131 Fetus Heart Rate Present Fetus Movement A No Comments reviewed again, questio ns answered, +FHR by US, doing well, has US scheduled f/u 4 weeks Flowsheet Date 11/12/2022 Becerra Score Blood Edema Fundus Height Fundus Units Glucose Ketones Leukocytes Nitrite Labor Signs Protein Cervic Dilation Cervic Effacement Cervic Station Type Weight in lbs Pre/Post Dialysis Refused BP Diastolic BP Location Tested BP Systolic BP Type Fetus Heart Rate Present Fetus Movement Comments Flowsheet Date 11/12/2022 Becerra Score Blood Edema Fundus Height Fundus Units Glucose Ketones Leukocytes Nitrite Labor Signs Protein Cervic Dilation Cervic Effacement Cervic Station neg none none trace Type Weight in lbs Pre/Post Dialysis Refused Weight 216.069036714946 BP Diastolic BP Location Tested BP Systolic BP Type 79 130 Fetus Heart Rate Present Fetus Movement A Yes Comments anatomy complete, 2.5 cm cer vical length, plan pelvic rest and lifting restrictions, f/u MFM due to hx, anatomy complete, f/u here in 4 weeks, ptl precautions Flowsheet Date 12/10/2022 Becerra Score Blood Edema Fundus Height Fundus Units Glucose Ketones Leukocytes Nitrite Labor Signs Protein Cervic Dilation Cervic Effacement Cervic Station neg none 26 none trace Type Weight in lbs Pre/Post Dialysis Refused Weight 221.204547936100 BP Diastolic BP Location Tested BP Systolic BP Type 79 124 Fetus Heart Rate Present A 156 Fetus Movement A Yes Comments patient states that having s ome discharge. MFM released, on progesterone supp, doing well, denies cramping, bleeding,plan gct and us next visit, PTL precautions reviewed f/u 4 weeks Flowsheet Date 01/07/2023 Becerra Score Blood Edema Fundus Height Fundus Units Glucose Ketones Leukocytes Nitrite Labor Signs Protein Cervic Dilation Cervic Effacement Cervic Station Type Weight in lbs Pre/Post Dialysis Refused BP Diastolic BP Location Tested BP Systolic BP Type Fetus Heart Rate Present Fetus Movement Comments Flowsheet Date 01/07/2023 Becerra Score Blood Edema Fundus Height Fundus Units Glucose Ketones Leukocytes Nitrite Labor Signs Protein Cervic Dilation Cervic Effacement Cervic Station neg none none trace Type Weight in lbs Pre/Post Dialysis Refused Weight 224.983789425267 BP Diastolic BP Location Tested BP Systolic BP Type 78 127 Fetus Heart Rate Present Fetus Movement A Yes Comments patient states that having s ome BH contractions. PTL precautions, still on progesterone, will see how long they want her take it. RN to call [facility], EFW 92%, GCT today f/u 2 weeks Flowsheet Date 01/23/2023 Becerra Score Blood Edema Fundus Height Fundus Units Glucose Ketones Leukocytes Nitrite Labor Signs Protein Cervic Dilation Cervic Effacement Cervic Station neg none none trace Type Weight in lbs Pre/Post Dialysis Refused Weight 225.912377265808 BP Diastolic BP Location Tested BP Systolic BP Type 78 127 Fetus Heart Rate Present A 146 Present Fetus Movement A Yes Comments patient is having some BH co ntractions. reviewed PTL precautions, still planning , call next week for preadmit, starts testing next week, Flowsheet Date 01/30/2023 Becerra Score Blood Edema Fundus Height Fundus Units Glucose Ketones Leukocytes Nitrite Labor Signs Protein Cervic Dilation Cervic Effacement Cervic Station Type Weight in lbs Pre/Post Dialysis Refused BP Diastolic BP Location Tested BP Systolic BP Type Fetus Heart Rate Present Fetus Movement Comments Flowsheet Date 01/30/2023 Becerra Score Blood Edema Fundus Height Fundus Units Glucose Ketones Leukocytes Nitrite Labor Signs Protein Cervic Dilation Cervic Effacement Cervic Station Type Weight in lbs Pre/Post Dialysis Refused BP Diastolic BP Location Tested BP Systolic BP Type Fetus Heart Rate Present Fetus Movement Comments Flowsheet Date 01/30/2023 Becerra Score Blood Edema Fundus Height Fundus Units Glucose Ketones Leukocytes Nitrite Labor Signs Protein Cervic Dilation Cervic Effacement Cervic Station neg none none trace Type Weight in lbs Pre/Post Dialysis Refused Weight 226.828777143260 BP Diastolic BP Location Tested BP Systolic BP Type 79 123 Fetus Heart Rate Present Fetus Movement A Yes Comments no cramping no complaints LG A, discussed probable section if remains LGA, will f/u growth in 4 weeksEFW 98% bpp 8/8, education and precautions reviewed, ok to schedule preadmit Flowsheet Date 02/06/2023 Becerra Score Blood Edema Fundus Height Fundus Units Glucose Ketones Leukocytes Nitrite Labor Signs Protein Cervic Dilation Cervic Effacement Cervic Station Type Weight in lbs Pre/Post Dialysis Refused BP Diastolic BP Location Tested BP Systolic BP Type Fetus Heart Rate Present Fetus Movement Comments Flowsheet Date 02/06/2023 Becerra Score Blood Edema Fundus Height Fundus Units Glucose Ketones Leukocytes Nitrite Labor Signs Protein Cervic Dilation Cervic Effacement Cervic Station Type Weight in lbs Pre/Post Dialysis Refused BP Diastolic BP Location Tested BP Systolic BP Type Fetus Heart Rate Present Fetus Movement Comments Flowsheet Date 02/06/2023 Becerra Score Blood Edema Fundus Height Fundus Units Glucose Ketones Leukocytes Nitrite Labor Signs Protein Cervic Dilation Cervic Effacement Cervic Station neg none none trace Type Weight in lbs Pre/Post Dialysis Refused Weight 227.964616035574 BP Diastolic BP Location Tested BP Systolic BP Type 76 130 Fetus Heart Rate Present Fetus Movement A Yes Comments patient states that has some swelling. LGA, bpp 8/8, swelling resolves at rest, precautions reviewed f/u one week, call for preadmitif c/s would prefer dr. stokes Flowsheet Date 02/13/2023 Becerra Score Blood Edema Fundus Height Fundus Units Glucose Ketones Leukocytes Nitrite Labor Signs Protein Cervic Dilation Cervic Effacement Cervic Station Type Weight in lbs Pre/Post Dialysis Refused BP Diastolic BP Location Tested BP Systolic BP Type Fetus Heart Rate Present Fetus Movement Comments Flowsheet Date 02/13/2023 Becerra Score Blood Edema Fundus Height Fundus Units Glucose Ketones Leukocytes Nitrite Labor Signs Protein Cervic Dilation Cervic Effacement Cervic Station Type Weight in lbs Pre/Post Dialysis Refused BP Diastolic BP Location Tested BP Systolic BP Type Fetus Heart Rate Present Fetus Movement Comments Flowsheet Date 02/13/2023 Becerra Score Blood Edema Fundus Height Fundus Units Glucose Ketones Leukocytes Nitrite Labor Signs Protein Cervic Dilation Cervic Effacement Cervic Station neg none none trace Type Weight in lbs Pre/Post Dialysis Refused Weight 227.830531467718 BP Diastolic BP Location Tested BP Systolic BP Type 75 118 Fetus Heart Rate Present Fetus Movement A Yes Comments doing well, growth next visi t, prog until 37 weeks bpp 8/8, precautions reviewed f/u one week Flowsheet Date 02/20/2023 Becerra Score Blood Edema Fundus Height Fundus Units Glucose Ketones Leukocytes Nitrite Labor Signs Protein Cervic Dilation Cervic Effacement Cervic Station Type Weight in lbs Pre/Post Dialysis Refused BP Diastolic BP Location Tested BP Systolic BP Type Fetus Heart Rate Present Fetus Movement Comments Flowsheet Date 02/20/2023 Becerra Score Blood Edema Fundus Height Fundus Units Glucose Ketones Leukocytes Nitrite Labor Signs Protein Cervic Dilation Cervic Effacement Cervic Station Type Weight in lbs Pre/Post Dialysis Refused BP Diastolic BP Location Tested BP Systolic BP Type Fetus Heart Rate Present Fetus Movement Comments Flowsheet Date 02/20/2023 Becerra Score Blood Edema Fundus Height Fundus Units Glucose Ketones Leukocytes Nitrite Labor Signs Protein Cervic Dilation Cervic Effacement Cervic Station neg trace none trace Type Weight in lbs Pre/Post Dialysis Refused Weight 228.787517553455 BP Diastolic BP Location Tested BP Systolic BP Type 78 127 Fetus Heart Rate Present Fetus Movement A Yes Comments patient is having some BH co ntractions and swelling. reviewed precautions gbs next visitLGA efw >99%, rpt scheduled with dr. stokes if pt labors around 37 weeks would like to consider Flowsheet Date 02/27/2023 Becerra Score Blood Edema Fundus Height Fundus Units Glucose Ketones Leukocytes Nitrite Labor Signs Protein Cervic Dilation Cervic Effacement Cervic Station Type Weight in lbs Pre/Post Dialysis Refused BP Diastolic BP Location Tested BP Systolic BP Type Fetus Heart Rate Present Fetus Movement Comments Flowsheet Date 02/27/2023 Becerra Score Blood Edema Fundus Height Fundus Units Glucose Ketones Leukocytes Nitrite Labor Signs Protein Cervic Dilation Cervic Effacement Cervic Station Type Weight in lbs Pre/Post Dialysis Refused BP Diastolic BP Location Tested BP Systolic BP Type Fetus Heart Rate Present Fetus Movement Comments Flowsheet Date 02/27/2023 Becerra Score Blood Edema Fundus Height Fundus Units Glucose Ketones Leukocytes Nitrite Labor Signs Protein Cervic Dilation Cervic Effacement Cervic Station neg trace none trace 3cm 70% -2 Type Weight in lbs Pre/Post Dialysis Refused Weight 229.886505037088 BP Diastolic BP Location Tested BP Systolic BP Type 77 116 Fetus Heart Rate Present Fetus Movement A Yes Comments patient is having some BH co ntractions and swelling. GBS today, labor precautions, testing reasurring Flowsheet Date 03/06/2023 Becerra Score Blood Edema Fundus Height Fundus Units Glucose Ketones Leukocytes Nitrite Labor Signs Protein Cervic Dilation Cervic Effacement Cervic Station Type Weight in lbs Pre/Post Dialysis Refused BP Diastolic BP Location Tested BP Systolic BP Type Fetus Heart Rate Present Fetus Movement Comments Flowsheet Date 03/06/2023 Becerra Score Blood Edema Fundus Height Fundus Units Glucose Ketones Leukocytes Nitrite Labor Signs Protein Cervic Dilation Cervic Effacement Cervic Station Type Weight in lbs Pre/Post Dialysis Refused BP Diastolic BP Location Tested BP Systolic BP Type Fetus Heart Rate Present Fetus Movement Comments Flowsheet Date 03/06/2023 Becerra Score Blood Edema Fundus Height Fundus Units Glucose Ketones Leukocytes Nitrite Labor Signs Protein Cervic Dilation Cervic Effacement Cervic Station neg none none trace 3cm 80% -1 Type Weight in lbs Pre/Post Dialysis Refused Weight 226.857042426150 BP Diastolic BP Location Tested BP Systolic BP Type 76 132 Fetus Heart Rate Present Fetus Movement A Yes Comments patient is having BH contrac tions and swelling. reviewed labor precautions f/u one week, would like to deliver vaginally if goes into labor this week Flowsheet Date 03/13/2023 Becerra Score Blood Edema Fundus Height Fundus Units Glucose Ketones Leukocytes Nitrite Labor Signs Protein Cervic Dilation Cervic Effacement Cervic Station Type Weight in lbs Pre/Post Dialysis Refused BP Diastolic BP Location Tested BP Systolic BP Type Fetus Heart Rate Present Fetus Movement Comments Flowsheet Date 03/13/2023 Becerra Score Blood Edema Fundus Height Fundus Units Glucose Ketones Leukocytes Nitrite Labor Signs Protein Cervic Dilation Cervic Effacement Cervic Station Type Weight in lbs Pre/Post Dialysis Refused BP Diastolic BP Location Tested BP Systolic BP Type Fetus Heart Rate Present Fetus Movement Comments Flowsheet Date 03/13/2023 Becerra Score Blood Edema Fundus Height Fundus Units Glucose Ketones Leukocytes Nitrite Labor Signs Protein Cervic Dilation Cervic Effacement Cervic Station neg none none trace 4cm 80% -1 Type Weight in lbs Pre/Post Dialysis Refused Weight 225.386269713425 BP Diastolic BP Location Tested BP Systolic BP Type 78 128 Fetus Heart Rate Present A 152 Fetus Movement A Yes Comments Patient states good FM and s welling in ankles. Continued BH ctx. Would still like to attempt vaginal delivery if she goes into labor prior to scheduled repeat c section. BPP 8. Flowsheet Date 03/20/2023 Becerra Score Blood Edema Fundus Height Fundus Units Glucose Ketones Leukocytes Nitrite Labor Signs Protein Cervic Dilation Cervic Effacement Cervic Station Type Weight in lbs Pre/Post Dialysis Refused BP Diastolic BP Location Tested BP Systolic BP Type Fetus Heart Rate Present Fetus Movement Comments Flowsheet Date 03/20/2023 Becerra Score Blood Edema Fundus Height Fundus Units Glucose Ketones Leukocytes Nitrite Labor Signs Protein Cervic Dilation Cervic Effacement Cervic Station Type Weight in lbs Pre/Post Dialysis Refused BP Diastolic BP Location Tested BP Systolic BP Type Fetus Heart Rate Present Fetus Movement Comments Flowsheet Date 03/20/2023 Becerra Score Blood Edema Fundus Height Fundus Units Glucose Ketones Leukocytes Nitrite Labor Signs Protein Cervic Dilation Cervic Effacement Cervic Station neg none none trace Type Weight in lbs Pre/Post Dialysis Refused Weight 229.802025408958 BP Diastolic BP Location Tested BP Systolic BP Type 78 135 Fetus Heart Rate Present Fetus Movement A Yes Comments patient is having BH contrac tions. declines cervical exam bpp 88 efw 98% off this weekend rpt c/section next week Flowsheet Date 03/23/2023 Becerra Score Blood Edema Fundus Height Fundus Units Glucose Ketones Leukocytes Nitrite Labor Signs Protein Cervic Dilation Cervic Effacement Cervic Station Type Weight in lbs Pre/Post Dialysis Refused BP Diastolic BP Location Tested BP Systolic BP Type Fetus Heart Rate Present Fetus Movement Comments Menstrual History Last Menstrual Date Menses Monthly On Bcp Conception Prior Menses Frequency Hcg Plus Date Menarche Onset Age 1206/21/2022 Genetic Screening And Infection History Question Response Note Mental Retardation/Autism false Patient's Age Will Be 35 Years Or Older At Estim ated Date of Delivery false Thalassemia (German, Cambodian, Mediterranean, Or Background): MCV < 80 false Neural Tube Defect (Meningomyelocele, Spina Bifi da, Or Anencephaly) false Congenital Heart Defect false Down Syndrome false Man-Sachs (eg, Christian, Cajun, Portuguese-Gibraltarian) f alse Elisa Disease false Sickle Cell Disease Or Trait () false Hemophilia Or Other Blood Disorders false Muscular Dystrophy false Cystic Fibrosis false Snook's Chorea false Intellectual Disability/Autism false If Yes, Was Person Tested For Fragile X? false Other Inherited Genetic Or Chromosomal Disorder false Maternal Metabolic Disorder (eg, Type 1 Diabetes , PKU) false Patient Or Baby's Father Had A Child With Defects Not Listed Above false Recurrent Loss, Or A Stillbirth false Medications (including Suppl ements, Vitamins, Herbs, OTC Drugs), Illicit/Recreational Drugs, Alcohol false If Yes, Agent(s) And Strength/Dosage false Any Other Genetic History false Live With Someone With TB Or Exposed To TB false Patient Or Partner Has History Of Genital Herpes false Rash Or Viral Illness Since Last Menstrual Perio d false History Of STD, Gonorrhea, Chlamydia, HPV, Syphi lis false Other Infection History false History of HIV false History of Hepatitis false Prior GBS-infected child false Hemoglobinopathy Or Carrier false Other Structural Defect false Recent Travel History Outside of Country false Delivery Information Delivery Date Delivery Type Labor Anesthesia Weeks Gestation Incision Type Labor Labor Length Hrs Delivered By Post Complications Tubal Sterilization Discharge Date Comments 3 None Regional-Sp inal 39.2 Low Transvers e false Milan Stokes MD Group B Streptoco ccus carrier, History of section, History of premature delivery twins 30wks, Large for gestation age fetus, Short cervical length in Discharge Information Feeding Method Contraceptive Method Maternal HG B and HCT Levels Ob Episode Information Episode Created Date Number of Fetuses Patient Bloodtype Patient rh Status Prepregnancy Weight lbs Domestic Partner Domestic Partner Phone Father Name Mica Layer Status 08/19/19 25 1 O Positive 199 Jordin sims OPEN Fetus Data First Name Last Name Admitted to NICU Weight (g) Sex Living Outcome Pediatric Complications Fetus ID Race Codes Race Delivery Type [id number] Problems Problem Notes Problem Name Start Date End Date Resolution Snomed Code Not e Past history of premature delivery 047552901 cord p rolapse, twins 2020 Large for gestation age fetus 676089014 in Past history of section 151394413 x 2 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 chikiswmirella @ [facility] Jerry Calculation Initial Jerry Date Initial Exam [...] Latest Days Gestation 0 02/19/20 25 0 Pre-sebastian Flowsheet Flowsheet Date 08/19/2024 Becerra Score Blood Edema Fundus Height Fundus Units Glucose Ketones Leukocytes Nitrite Labor Signs Protein Cervic Dilation Cervic Effacement Cervic Station neg none Type Weight in lbs Pre/Post Dialysis Refused Weight 204.310840804291 BP Diastolic BP Location Tested BP Systolic [...] Type Weight in lbs Pre/Post Dialysis Refused 203.29242836515 BP Diastolic BP Location Tested BP Systolic [...] Type Weight in lbs Pre/Post Dialysis Refused 211.921445579252 BP Diastolic BP Location Tested BP Systolic [...] Type Weight in lbs Pre/Post Dialysis Refused 215.022494935236 BP Diastolic BP Location Tested BP Systolic [...] Type Weight in lbs Pre/Post Dialysis Refused 218.608982997795 BP Diastolic BP Location Tested BP Systolic [...] Weight in lbs Pre/Post Dialysis Refused Weight 219.788882401868 BP Diastolic BP Location Tested BP Systolic [...] Weight in lbs Pre/Post Dialysis Refused Weight 221.357618218317 BP Diastolic BP Location Tested BP Systolic [...] Type Weight in lbs Pre/Post Dialysis Refused 223.395618102189 BP Diastolic BP Location Tested BP Systolic [...] Weight in lbs Pre/Post Dialysis Refused Weight 220.507745528696 BP Diastolic BP Location Tested BP Systolic [...] Weight in lbs Pre/Post Dialysis Refused Weight 220.669830737591 BP Diastolic BP Location Tested BP Systolic [...]
--- OUTSIDE RECORDS SUMMARY | 2025-01-25 15:52 | XMS_ITS | Clinical Summary ---
Author Organization [facility] Address [address] [place] [address] Care Team Providers Care Shed Boss Name Role Phone Yulissa Rudolph NP Primary Care Provider + [phone] Allergies No known active allergies Medications [id number] cb,ej-rtsvz-ina- dha 27-1-50-250 mg combo pack Take by mouth Active Active Problems No known active problems Surgical History Surgery Date Site/Laterality Comments TONSILLECTOMY Early /Frequent Strep Throat Medical History Medical History Date Comments PCOS (polycystic ovarian syndrome) Family History Medical History Relation Name Comments Diabetes Father Diabetes Maternal Grandmother Breast cancer Neg Hx Colon cancer Neg Hx Deep vein thrombosis Neg Hx Ovarian cancer Neg Hx Uterine cancer Neg Hx Relation Name Status Comments Father Maternal Grandmother Social History Tobacco Use Types Packs/Day Years [...] CDT Gender Identity Female 07/01/2019 6:12 PM 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 Sexual Orientation Straight 07/01/2019 6: 12 PM 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 Obstetrics History Para Term AB IAB SAB Ectopic Multiple Livin g Live Births 1 0 0 0 0 0 0 0 0 0 0 Date Outcome GA Total Labor Labor/2nd/3rd Weight Sex Type Anes PTL Josefina A1 A5 Name Clin Last Filed Vital Signs Vital Sign Reading Time Taken Comments Blood Pressure 123/70 08/02/2019 1:01 PM 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 Pulse 68 08/02/2019 1:01 PM 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 Temperature - - Respiratory Rate - - Oxygen Saturation - - Inhaled Oxygen Concentration - - Weight 76.7 kg (169 lb) 08/02/2019 1:01 PM 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
--- OUTSIDE RECORDS SUMMARY | 2025-01-25 15:52 | XMS_ITS | Encounter Summary ---
Author Organization [facility] Address [address] [place] [address] Care Team Providers Care Glass Sander Name Role Phone None, Provider Primary Care Provider Unavaila ble Encounter Details Date Type Department Care Team (Late st Contact Info) Description 01/15/2021 Pulse 8 Message Enc [facility] [address] [place] [address] Macie Tracy, [facility] [address] [facility] [place] [address] Visit Follow Up Social History Tobacco Use Types Packs/Day Years Used Date Smoking Tobacco: Never Smokeless Tobacco: Never Alcohol Use Standard Drinks/Week Comments Not Currently 0 (1 standard drink = 0.6 oz pur e alcohol) Comments No Sex and Gender Information Value Date Recorded Sex Assigned at Not on file 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 No / Unsure 01/15/2021 2:36 PM CDT documented as of this encounter Functional Status * RETIRED Are you deaf or do you have serious difficulty hearing Answer Date of Assessment Author Status No 01/11/2020 3:16 PM CDT Activ e * RETIRED Are you blind or do you have serious difficulty seeing, even when wearing glasses? Answer Date of Assessment Author Status No 01/11/2020 3:16 PM CDT Activ e * Do you have serious difficulty walking or climbing stairs? Answer Date of Assessment Author Status No 01/11/2020 3:16 PM CDT Cordelia Ferrer R N Active * Do you have difficulty dressing or bathing? Answer Date of Assessment Author Status No 01/11/2020 3:16 PM CDT Cordelia Ferrer R N Active * Because of a physical, mental, or emotional condition, do you have difficulty doing errands alone such as visiting a doctor's office or shopping? Answer Date of Assessment Author Status No 01/11/2020 3:16 PM CDT Cordelia Ferrer R N Active documented as of this encounter Mental Status * Because of a physical, mental, or emotional condition, do you have serious difficulty concentrating, remembering, or making decisions? Answer Entry Date Author Status No 01/11/2020 3:16 PM CDT Cordelia Ferrer R N Active documented in this encounter Plan of Treatment Not on file documented as of this encounter Visit Diagnoses Not on filedocumented in this encounter Care Teams Glass Sander Relationship Specialty Start Date End Date None, Provider, PCP - General 01/11/20 documented as of this encounter
[2025-01-25 16:27] VITALS: BP 127/72; PULSE 106
[2025-01-25 16:31] VITALS: BP 116/76; PULSE 107
[2025-01-25 16:34] LABS: Hematocrit 36.2 % (37.0-47.0); Hemoglobin 12.5 g/dL (12.0-15.0); Immature Granulocyte Percent A 0.3 % (0-0.5); Lymphocytes Absolute Auto 1.86 K/mm3 (0.9-3.2); Mean Corpuscular HGB Conc 34.5 g/dl (32-36); Mean Corpuscular Hemoglobin 29.1 pg (26-34); Mean Corpuscular Volume 84.2 fl (80-100); Nucleated Red Blood Cells Absolute Auto 0.000 K/mm3 (0.0-0.012); Nucleated Red Blood Cells Perc 0.0 % (0.0-0.2); Platelet Count Result 223 k/mm3 (150-375); Red Blood Count 4.30 M/mm3 (4.2-5.4); White Blood Count 9.3 K/mm3 (4.5-10.0)
[2025-01-25 16:36] LABS: Add Urine Microscopic? YES; Appearance Urine Clear (Clear); Glucose Urine UA Negative (Negative); Leukocyte Esterase Ur Trace LEU/UL (Negative); Nitrate Urine Negative (Negative); Non Pathogenic Casts 0-2; Specific Grav Ur 1.005 (1.001-1.035)
[2025-01-25 16:38] VITALS: BMI 32.5
[2025-01-25 16:41] VITALS: TEMP 37
[2025-01-25 16:41] LABS: Total Protein Urine Random 18 mg/dL; Ur Ttl Prot Creatinine Ratio 0.63 mg/mg (0-0.20)
[2025-01-25 16:44] LABS: Alanine Aminotransferase 13 U/L (6-35); Albumin Level 4.1 g/dL (3.5-5.1); Alkaline Phosphatase 101 U/L (38-126); Anion Gap 10 mmol/L (4-12); Aspartate Amino Transferase 35 U/L (14-36); Bilirubin,Total 0.3 mg/dL (0.2-1.3); Blood Urea Nitrogen 5 mg/dL (7-17); Calcium 9.7 mg/dL (8.4-10.2); Carbon Dioxide 19 mmol/L (22-30); Chloride 105 mmol/L (98-107); Estimated CRCL calculation 189 ml/min; Estimated Glomerular Filt Rate > 60; Glucose 79 mg/dL (65-110); Potassium 3.6 mmol/L (3.4-5.0); Sodium 134 mmol/L (137-145); Total Protein 7.8 g/dL (6.3-8.2); Uric Acid 4.5 mg/dL (2.5-7.5)
[2025-01-25 16:46] VITALS: BP 107/70; PULSE 101
[2025-01-25 17:01] VITALS: BP 115/65; PULSE 98
[2025-01-25 17:16] VITALS: BP 118/73; PULSE 93
== END 2025-01-25 17:30 | disposition home or self-care (01) ==
LOC: ANHOBOP 15:50 → ANHLDR 15:53
PROVIDERS: Advanced Practice Midwife; Visit Provider Obstetrics & Gynecology
DX: O13.9 Gestational [pregnancy-induced] hypertension without significant proteinuria, unspecified trimester (principal); Z3A.00 Weeks of gestation of pregnancy not specified
CPT/HCPCS: 36415; 59025; 80053; 81001; 82570; 84156; 84550; 85025; 99199

== ENCOUNTER 2025-01-27 10:56 | Outpatient (CLI) | payer OTHER, SELFPAY ==
[2025-01-27] VITALS (19 sets, daily range): BP systolic 115–127; BP diastolic 74–85; PULSE 91–112; O2SAT 94–98
--- OUTSIDE RECORDS SUMMARY | 2025-01-27 11:02 | XMS_ITS | Encounter Summary ---
Author Organization [facility] Address [address] [place] [address] Care Team Providers Care Farmer Diversified Crops Name Role Phone None, Provider Primary Care Provider Unavaila ble Encounter Details Date Type Department Care Team (Late st Contact Info) Description 01/15/2021 Next Glass Message Enc 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
--- OUTSIDE RECORDS SUMMARY | 2025-01-27 11:02 | XMS_ITS | Encounter Summary ---
Author Organization [facility] Address [address] [place] [address] Phone Care Team Providers Care Assistant Product Manager Name Role Phone Yulissa Rudolph NP Primary Care Provider + [phone] Encounter Details Date Type Department Care Team (Late st Contact Info) Description 06/06/2019 Orders Only [facility] [address] [address] Brianna De Leon MD [address] [address] Encounter for fertility testing (Primary [...] CDT Gender Identity Female 07/01/2019 6:12 PM CEMENT [employer]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 Sexual Orientation Straight 07/01/2019 6: 12 PM CEMENT [employer]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 TENDER documented as of this encounter Plan of Treatment Not on file documented as of this encounter Procedures Procedure Name Priority Date/Time Associated Diagnosis Comments PROGESTERONE Routine 06/08/2019 9:17 AM C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 TENDER Encounter for fertility testing documented in this encounter Results * Progesterone (06/08/2019 9:17 AM C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 TENDER) Progesterone 28.2 ng/mL [facility] - 01 Comment: Follicular phase 0.1 - 0.9 Luteal phase 1.8 - 23.9 Ovulation phase 0.1 - 12.0 First trimester 11.0 - 44.3 Second trimester 25.4 - 83.3 Third trimester 58.7 - 214.0 Postmenopausal 0.0 - 0.1 Blood specimen (specimen) 06/08/2019 9:17 AM C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 TENDER 06/08/2019 Narrative [facility] - 06/09/2019 6:08 AM CEMENT [employer]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 TENDER Performed at: - [facility] [address] [id number] Panelboard Operator: Kirt Harman PhD, Phone: [phone] us Brianna De Leon MD LAB BLOOD ORDERABLES Final R esult [facility] - 01 documented in this encounter Visit Diagnoses Diagnosis Encounter for fertility testing- Primary Encounter for other procreative management documented in this encounter Care Teams Assistant Product Manager Relationship Specialty Start Date End Date Yulissa Rudolph NP PCP - General Obstetrics and Gynecology 01/19/19 documented as of this encounter
--- OUTSIDE RECORDS SUMMARY | 2025-01-27 11:02 | XMS_ITS | Clinical Summary ---
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
--- OUTSIDE RECORDS SUMMARY | 2025-01-27 11:02 | XMS_ITS | Referral Summary ---
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 Sexual Orientation Straight 07/01/2019 6: 12 PM [employer]CISION [employer] ASSEMBLER Last Filed Vital Signs Vital Sign Reading Time Taken Comments Blood Pressure 123/70 08/02/2019 1:01 PM [employer]CISION [employer]FT SYSTEM[employer] ASSEMBLER Pulse 68 08/02/2019 1:01 PM PRECISION [employer]FT SYSTEMS ASSEMBLER Temperature - - Respiratory Rate - - Oxygen Saturation - - Inhaled Oxygen Concentration - - Weight 76.7 kg (169 lb) 08/02/2019 1:01 PM PRECISION [employer]FT SYSTEMS ASSEMBLER Height 175.3 cm (5' 9) 08/02/2019 1:01 PM [employer]CISION [employer]FT SYSTEMS ASSEMBLER Body Mass Index 24.96 08/02/2019 1:01 PM PRECISION [employer]FT SYSTEMS ASSEMBLER Plan of Treatment Not on file Insurance [facility], [facility] Care Teams Pantograph Operator Relationship Specialty Start Date End Date Yulissa Rudolph NP PCP - General Obstetrics and Gynecology 01/19/19
--- OUTSIDE RECORDS SUMMARY | 2025-01-27 11:02 | XMS_ITS | Clinical Summary ---
Author Organization [facility] Address [address] [place] [address] Care Team Providers Care Executive Asst Name Role Phone Unavailable Primary Care Provider Unavailabl e Source Comments [facility],non-owned Affiliates and Associated Physician Practices is amultiple site organization consisting of ambulatory clinics and hospital sitesin [place], [place], [place] and [place]. This disclosure is being madepursuant to the Care Everywhere program and may not contain all information available regarding this patient. Last updated 18.[facility] Allergies No known active allergies Medications * Be aware that medications may not be up to date on this document. Alwaysverify current medications with the patient. Prenat w/o [id number] -DHA (PNV OB+DHA) 27-1 & 250 MG [...] and heating? Not hard at all 11/24/2022 [place] [facility] - Occupational Stress [...] place to sleep or slept in a retirement (including now)? No 11/24/2022 [place] Depression Scale Answer Date Recorded [place] Depression Scale Total 5 11/24/2022 The thought [...]
--- OUTSIDE RECORDS SUMMARY | 2025-01-27 11:02 | XMS_ITS | Data Portability ---
Author Organization [facility] Address [address] [place] [address] [place] [address] Assessment Encounter Date Assessment Date Assessment LastModified by Organization Details LastModified Time 01/20/2025 01/20/2025 Patient is ___weeks . Discussed plan. [email or web address] Not available 01/20/2025 15:30:27 01/25/2025 01/25/2025 Patient is _36__weeks . Discussed plan. [email or web address] Not available 01/25/2025 16:44:03 Plan of Treatment Reminders Order Date Submit Date Provider Last Modified By Organization Details Last Modified Time Details Appointments NST 2024 09:00A M NST SCHEDULE Not available Not available Not available BLOOD PRESSURE CHECK 2024 09:00A M Yulissa Rudolph CNM Not available Not available Not available SURG CSection 2024 10:00A Geronimo STOKES MD Not available Not available Not available OB ROUTINE 2024 02:45P Geronimo Rudolph CNM Not available Not available Not available OB ROUTINE 2024 02:45P Geronimo Rudolph CNM Not available Not available Not available OB ROUTINE 2024 03:00P Geronimo Rudolph CNM Not available Not available Not available SURG POST OP 2024 01:15P eGronimo STOKES MD Not available Not available Not available Lab None recorded. Referral None recorded. Procedures None recorded. Surgeries None recorded. Imaging US, obstetric , follow-up 2024 025 [email or web address], [address], [place], [address], 01/06/2025 22:15:55 Medication Orders None recorded. Patient TargetsNo targets recorded. Patient InstructionsNo instructions recorded. Reason for Referral None Reported. Results Created Date Observation Date Name Description Value Unit Range Abnormal Flag Note LastModifiedBy Organization Detail LastModifiedTime 01/21/2001/20/2025 CULTU RE: GROUP B STREP SCREE N, REFLE X SUSCE PTIBI LITY result report SEE RESULT S BELOW abnormal Test: Cultu re: Group B Strep , Refle x Susce ptibi lity ([facility]/ [facility] ) Speci men Sourc e: Vagin a/Rec osvaldo Speci men Type: Vagin al/Re ctal Speci men Date: 2024 1606 Resul t Date: 2024 1433 Resul t Statu s: Final resul t Abnor mal: Yes Resul ting Lab: [facility] [address] [facility] [address] Tel: CULTU RE ----- ----- ----- --- Posit darcy for Strep tococ cus agala ctiae (Grou p B) (Abno rmal) Clind amyci n = resis tant, eryth romyc in = resis tant. Cefaz hansa may be used for intra partu m proph ylaxi s in penic illin -mateo rgic women at low risk, and Vanco mycin is recom zainab d for women at high risk for anaph ylaxi s. Susce ptibi lity testi ng is not neces nay for these drugs . Not Available [facility] (Lab) [address], [place], [address], 01/25/2025 15:36:22 01/05/2001/04/2025 US, obste tric, follo w-up No observ ation record ed. [email or web address], [place], [address], 01/13/2025 16:11:09 01/05/20 25 01/04/2025 US, obste tric, follo w-up No observ ation record ed. [email or web address] [address] [address], [place], [address], 01/04/2025 17:48:51 01/26/20 25 01/25/2025 imagi ng/di agnos tic resul t No observ ation record ed. [facility] [address], [place], [address], 01/26/2025 04:18:56 Result Notes None recorded. Problems Name Problem SNOMED Code Status Onset Date Resolution Date Notes Provider Name and Address Organization Details Recorded Time Past pregnanc y history of section 653049184 Active x 2 Yulissa Rudolph CNM [address], [place], [address], [facility] 5 13:52:31 Past pregnanc y history of prematur e delivery 134512724 Active cord prolapse , twins 2019 Yulissa Rudolph CNM [address], [place], [address], [facility] 5 13:54:07 Group B Streptoc occus carrier 9600247109 103 Completed bacteriu john Kirk blackman, [facility] 3 14:47:05 Short cervical length in pregnanc y 048493189 Completed Level II schd in [facility] on 11/24 @ 0815 - vaginal progeste mary until delivery Kirk blackman, [facility] 3 14:47:05 Large for gestatio n age fetus 555712388 Completed 98% - possible c/s schedule d 39 wks Kirk blackman, [facility] 3 14:47:05 Past pregnanc y history of prematur e delivery 912755895 Active cord prolapse , twins 2019 Yulissa Rudolph CNM [address], [place], [address], [facility] 5 13:54:06 Past pregnanc y history of section 172981909 Active x 2 Yulissa Rudolph CNM [address], [place], [address], [facility] 5 13:52:31 Zhanen g twin syndrome 437492950 Active current pregnanc y Yulissa Rudolph CNM [address], [place], [address], [facility] 5 13:52:25 Large for gestatio n age fetus 788720975 Active pregnanc y in 2022 Yulissa Rudolph CNM [address], [place], [address], [facility] 5 13:52:51 Placenta circumva llata 2262561 Active grwoth @ 32wks Jessica blackman, [facility] 5 23:17:10 Dichorio yunior diamniot ic twin pregnanc y 469889075 Completed SERIAL GROWTH U/S Isabel blackman, [facility] 11:35:41 Marginal insertio n of umbilica l cord 75141951 Completed SERIAL GROWTH U/S Isabel blackman, [facility] 11:35:41 Amenorrh ea 58670349 Completed 201708/15/2020 Amenorrh ea;Recor ded Elsewher e: No Locat ion: Keyla moss [facility] S ource: EHR Import Export Manager yunior: N Practi ce ID: 0001 Manpreet lable Time: 01:00:00 PM Isabel blackman, [facility] 11:31:12 Secondar y amenorrh ea 618777702 Completed 201708/15/2020 Secondar y amenorrh ea;Tashia ice ID: 0001 Isabel Abdul null, [facility] 11:31:38 Finding of pattern of menstrua l cycle Completed 201708/15/2020 Other specifie d irregula r menstrua tion;Rec orded Elsewher e: No Locat ion: Keyla moss [facility] S ource: EHR Import Export Manager yunior: N Practi ce ID: 0001 Manpreet lable Time: 02:30:00 PM Isabel blackman [facility] 11:31:[address] Concept Completed 201708/15/2020 Encntr for general adult medical exam w/o abnormal findings ;Recorde d Elsewher e: No Locat ion: Keyla moss [facility] S ource: EHR Import Export Manager yunior: N Practi ce ID: 0001 Manpreet lable Time: 02:00:00 PM Isabel blackman, [facility] 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 11:31:43 Body mass index 25-29 - overweig ht 208983825 Completed 201708/15/2020 Body mass index (BMI) 25.0-25. 9, adult;Re corded Elsewher e: No Locat ion: Keyla moss [facility] S ource: EHR Import Export Manager yunior: N Practi ce ID: 0001 Manpreet lable Time: 02:00:00 PM Isabel blackman [facility] 11:31:17 Polycyst ic ovary syndrome 070459242 Completed 201801/25/2021 Polycyst ic ovarian syndrome ;Recorde d Elsewher e: No Locat ion: [facility] isa [facility] S ource: EHR Import Export Manager yunior: N Practi ce ID: 0001 Manpreet lable Time: 11:15:00 AM Isabel blackman, [facility] 11:00:57 Pregnanc y test negative 045608901 Completed 201808/15/2020 Encounte r for pregnanc y test, result negative ;Recorde d Elsewher e: No Locat ion: [facility] S ource: EHR Import Export Manager yunior: N Practi ce ID: 0001 Manpreet lable Time: 02:00:00 PM Isabel blackman, [facility] 11:31:33 Finding of fertilit y Completed 201808/15/2020 Female infertil ity, unspecif ied;Tevin rded Elsewher e: No [facility] S ource: EHR Import Export Manager yunior: N Practi ce ID: 0001 Manpreet lable Time: 04:30:00 PM Isabel blackman, [facility] 11:31:24 Pregnanc y detectio n examinat ion Completed 201908/15/2020 Encounte r for pregnanc y test, result positive ;Recorde d Elsewher e: No Locat ion: Rosalina isa [facility] S ource: EHR Import Export Manager yunior: N Practi ce ID: 0001 Manpreet lable Time: 05:15:00 PM Isabel blackman, [facility] 11:31:31 Twin pregnanc y Completed 201908/15/2020 Twin pregnanc y;Record ed Elsewher e: No Locat ion: Rosalina isa [facility] S ource: EHR Import Export Manager yunior: N Practi ce ID: 0001 Manpreet lable Time: 08:30:00 AM Isabel blackman, [facility] 11:31:19 Antenata l screenin g Completed 201908/15/2020 Encounte r for other specifie d antenata l screenin g;Record ed Elsewher e: No Locat ion: Keyla moss [facility] S ource: EHR Import Export Manager yunior: N Dixieti ce ID: 0001 Manpreet lable Time: 08:30:00 AM Isabel blackman, [facility] 11:31:14 Gestatio n period, 12 weeks 76733790 Completed 201908/15/2020 12 weeks gestatio n of pregnanc y;Record ed Elsewher e: No [facility] Import Export Manager yunior: N Poonam ce ID: 0001 Manpreet lable Time: 02:30:00 PM Isabel blackman, [facility] 11:31:28 Disorder of labor / delivery Completed 201908/15/2020 Twin pregnanc y, dichorio yunior/diam niotic, first trimeste r;Record ed Elsewher e: No Locat ion: [facility] S ource: EHR Import Export Manager yunior: N Dixieti ce ID: 0001 Manpreet lable Time: 02:30:00 PM Isabel blackman, [facility] 11:31:21 Pregnanc y, childbir th and puerperi um finding Completed 201908/15/2020 Encntr for suprvsn of normal first preg, second trimeste r;Record ed Elsewher e: No Locat ion: [facility] S ource: EHR Import Export Manager yunior: N Dixieti ce ID: 0001 Manpreet lable Time: 11:15:00 AM Isabel blackman, [facility] 11:31:36 Twin dichorio ynuior diamniot ic placenta 84400142 Completed 201908/15/2020 Serial growth, NSTs @ 32 weeks! Isabel blackman, [facility] 1 11:31:46 Pregnanc y 89226054 Completed 201907/23/2020 Isabel blackman, [facility] 5 11:18:45 Pregnanc y 52902255 Completed 202203/30/2023 Isabel Abdul null, [facility] 5 11:18:45 Past pregnanc y history of section 747808985 Completed 2022 for twins and cord prolapse , in [facility] eld, desires TOLAC Kirk Richards null, [facility] 3 14:47:05 Past pregnanc y history of prematur e delivery 226127501 Completed 2022 twins, 30w Kirk Richards null, [facility] 3 14:47:05 Pregnanc y 75048380 Active 2024 Isabel Abdul null, [facility] 5 11:18:44 Problem Notes None recorded. Procedures Surgical History Date Name Laterality Status Provider Name and Address Organization Details Recorded Time 4 Date of Last Pap Smear completed Isabel Abdul [facility] 03/25/2024 14:26:38 3 Caesarean Section completed Isabel Abdul [facility] 03/25/2024 15:22:08 0 section completed Isabelmimi Abdul [facility] 08/15/2020 11:36:23 7 tonsilectomy/a denoids completed Isabel Abdul [facility] 08/15/2020 11:36:13 Imaging Results None recorded. [...] Elsewher e: No Locat ion: Keyla moss [facility] Geronimo odify By: maranda faith DateTime [...] Elsewher e: No Locat ion: Keyla moss [facility] odify By: [email or web address] z Encoun ter DateTime [...] Available Not Available Vitals Date Recorded Body weight Body mass index (BMI) Body height Systolic And Diastolic Provider Name and Address Organization Details Last Updated DateTime 01/04/2025 762012.09 851 g 34.9 kg/m2 170.18 cm 127/81 mm[Hg] [facility] 01/04/2025 15:49:07 Date Recorded Body height Body mass index (BMI) Body weight Systolic And Diastolic Provider Name and Address Organization Details Last Updated DateTime 01/20/2025 170.18 cm 34.5 kg/m2 67257.32 g 138/82 mm[Hg] Orquidea Nicole [facility] 01/20/2025 15:31:38 Date Recorded Body height Body mass index (BMI) Body weight Systolic And Diastolic Systolic And Diastolic Provider Name and Address Organization Details Last Updated DateTime 01/25/2025 170.18 cm 34.5 kg/m2 30606.32 g 150/90 mm[Hg] 151/94 mm[Hg] Betzy Huerta [facility] 16:33:08 Date Recorded Body height Body mass index (BMI) Body weight Systolic And Diastolic Provider Name and Address Organization Details Last Updated DateTime 01/27/2025 170.18 cm 34.5 kg/m2 69993.32 g 143/87 mm[Hg] MERCEDEZ Rincon [facility] 01/27/2025 12:01:44 Date Recorded Body weight Body mass index (BMI) Body height Systolic And Diastolic Provider Name and Address Organization Details Last Updated DateTime 01/27/2025 02754.321 4 g 34.5 kg/m2 170.18 cm 143/87 mm[Hg] Betzy Zaratet [facility] 01/27/2025 11:31:17 Social History Question Answer Notes LastModified by Organizat ion Details LastModified Time Tobacco Smoking Status Never Smoker Isabel blackman, [facility] 04/22/2023 10:45:36 Do You Have An Advance Directive? No [email or web address] Information n ot available 10/26/2020 If You Are , What Was Your Level Of Alcohol Consumption Prior To ? None [email or web address] Information not available 04/22/2023 Are You Blind Or Do You Have Difficulty Seeing? No Information n ot available 10/26/2020 What Is Your Level Of Caffeine Consumption? Occasional [email or web address] Information not available 09/30/2024 How Much Tobacco Do You Chew? None [email or web address] Information not available 08/26/2022 In The 14 Days Before Symptom Onset, Have You Had Close Contact With A Laboratory-confirm ed COVID-19 While That Case Was Ill? No [email or web address] Information n ot available 10/26/2020 In The 14 Days Before Symptom Onset, Have You Had Close Contact With A Person Who Is Under Investigation For COVID-19 While That Person Was Ill? No [email or web address] Information not available 10/26/2020 Have You Been To An Area Known To Be High Risk For COVID-19? No [email or web address] Information not available 10/26/2020 Are You Deaf Or Do You Have Serious Difficulty Hearing? No [email or web address] Information not available 10/26/2020 What Type Of Diet Are You Following? REGULAR [email or web address] Information n ot available 05/02/2022 What Is The Highest Grade Or Level Of School You Have Completed Or The Highest Degree You Have Received? CC55028-5 [email or web address] Information not available 10/26/2020 Are There Any Guns Present In Your Home? No [email or web address] Information not available 10/26/2020 Do You Use Protection During Sex? No [email or web address] Information not available 05/02/2022 Do You Use Your Seat Belt Or Car Seat Routinely? Yes [email or web address] Information not available 10/26/2020 Do You Have Smoke And Carbon Monoxide Detectors In Your Home? Yes [email or web address] Information not available 10/26/2020 How Much Tobacco Do You Smoke? No [email or web address] Information not available 08/15/2020 Do You Use Sunscreen Routinely? Yes [email or web address] Information not available 10/26/2020 Has Tobacco Cessation Counseling Been Provided? No [email or web address] Information not available 04/22/2023 Have You Used IV Drugs? No [email or web address] Information not available 10/26/2020 Do You Have Difficulty Walking Or Climbing Stairs? No [email or web address] Information not available 04/22/2023 Sex: Unknown Functional Status Question Answer Note LastModified by Organizat ion Details LastModified Time Do you use any illicit or recreational drugs? No [email or web address] Information not available 08/15/2020 Do you or have you ever used any other forms of tobacco or nicotine? No [email or web address] Information not available 04/22/2023 What is your level of alcohol consumption? None [email or web address] Information not available 08/15/2020 Are you able to walk? YESWOREST [email or web address] Information not available 10/26/2020 Are you able to care for yourself independently? 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 No [email or web address] Information not available 04/22/2023 What is your exercise level? Occasional [email or web address] Information not available 11/23/2024 Mental Status Question Answer Note LastModified by Organization D etails LastModified Time Do you feel stressed (tense, restless, nervous, or anxious, or unable to sleep at night)? [email or web address] Information not available 09/29/2023 Family History Relationship Description Onset Age of this Age Resolved Age Notes LastModified by Organization Details LastModified Time Father Diabetes mellitus [email or web address] Not available 2019 11:41:49 Paternal Grandmother Diabetes mellitus [email or web address] Not available 2019 11:42:01 Medical History Condition Response Allergies (Food, seasonal, environmental ) Y Other N Breast Cancer N Drug/Latex Allergies/Reactions N Blood Transfusion N Lung Disease N Dermatologic Disorders N Defects or Inherited Disease N Breast [...] Code Diagnosis Note 2571 Milan Stokes MD [place] [address] [address] 11/03/2019 09:54:35 11/03/2019 12:21:02 Dichorionic diamniotic twin 781369808 O30.009 2573 Milan Stokes MD [place] [address],[place] [address] 11/03/2019 09:56:00 11/03/2019 16:09:58 screening for malformation 090694074 Z36.3 5615 Milan Stokes MD [place] [address],[place] [address] 12/01/2019 11:25:21 12/01/2019 13:20:25 screening 036352697 O30.042 Z3A.24 screening for malformation 461494706 Z36.3 5616 Milan Stokes MD [place] [address],[place] [address] 12/01/2019 11:26:09 12/01/2019 13:20:45 Dichorionic diamniotic twin 121784837 O30.009 9189 Milan Stokes MD [place] [address],[place] [address] 12/27/2019 15:10:49 12/27/2019 16:50:18 Dichorionic diamniotic twin 865382527 O30.043 O43.93 Z36.2 Z3A.28 9190 Milan Stokes MD [place] [address],[place] [address] 12/27/2019 15:11:07 12/27/2019 17:48:03 Routine care 915014547 Z34.82 Dichorioni c diamniotic twin 776864621 O30.043 O43.93 Z36.2 Z3A.28 46467 Milan Stokes MD [facility] [address],[place] [address] 01/18/2020 18:00:28 01/18/2020 18:56:12 Wound cellulitis 425079842 L03.90 This patient is a 24-year-ol d [...] s. She will return in 1 week. 72857 Milan Stokes MD [facility] [address],[place] [address] 01/26/2020 09:06:09 01/26/2020 09:56:15 Infection of obstetric surgical wound 238010609 O86.00 This patient is a 24-year-ol d female presents for follow-up on suspected surgical incision problem. She had induration and erythema of her incision site from her . She had a for twins.The delivery was at 30 weeks.Inci sions today is clean dry and intact. There isno erythema and no induration . She agreed to follow-up in2 weeks for routine visit. 77059 Yulissa Rudolph CNM [facility] [address],[place] [address] 08/15/2020 11:01:40 08/15/2020 12:10:42 Contraception care management 938080174 Z30.9 08769 Yulissa Rudolph CNM [facility] [address],[place] [address] 10/26/2020 15:07:42 10/26/2020 15:58:33 Gynecologic examination 97646831 Z01.419 26226 Yulissa Rudolph CNM [facility] [address],[place] [address] 01/25/2021 10:48:49 01/25/2021 11:16:47 Sampling of vagina for Papanicolaou smear 618416872 Z01.42 [id number] Yulissa Rudolph CNM [facility] [address],[place] [address] 05/02/2022 15:11:28 05/02/2022 16:07:32 Gynecologic examination 94068461 Z01.419 Z11.3 Z11.8 Irregular periods 651910 07 N92.6 Trying to conceive 07826 9001 Z31.9 reviewed se risks and benefits [...] 5mg, plan to check progestero ne level [id number] Milan Stokes MD [facility] [address],[place] [address] 08/07/2022 10:46:25 08/07/2022 11:54:12 [id number] Milan Stokes MD [facility] [address],[place] [address] 08/26/2022 11:53:15 08/26/2022 12:36:07 Uncertain viability of 115322868 O36.80X0 Z3A.09 [id number] Bhavana Zimmerman [facility] [address],[place] [address] 08/26/2022 12:20:44 08/27/2022 17:14:18 Amenorrhea 60264254 N91.2 Venereal d isease screening 286173217 Z11.3 test positive 832682523 Z32.01 Risk factors addressed: Tobacco Cessation, Safe [...] annual well woman examinatio n and address [facility] . [id number] Betzy Ng MD [place] [address],[place] [address] 09/17/2022 15:11:10 09/17/2022 15:50:21 screening 952178202 Z36.82 [id number] Betzy Ng MD [facility] [address],[place] [address] 09/17/2022 15:12:09 09/17/2022 17:31:36 Routine care 578300972 Z34.91 Past pregn dominic history of section 024180511 Z98.890 interested in TOLAC Past pregn dominic history of premature delivery 693131341 Z87.51 twins, 30w 078599 [facility] [address] [address] 10/15/2022 16:42:15 10/15/2022 17:35:12 Routine care 699059189 Z34.92 [id number] Betzy Ng MD [place] [address],[place] [address] 11/12/2022 13:45:08 11/12/2022 15:05:25 screening for malformation 299181471 Z36.3 015186 [facility] [address],[place] [address] 11/12/2022 14:56:29 11/12/2022 15:50:10 Routine care 700913125 Z34.92 [id number] Yulissa Rudolph CNM [facility] [address],[place] [address] 12/10/2022 15:07:25 12/10/2022 16:25:31 Routine care 923095859 Z34.92 [id number] Milan Stokes MD [facility] [address] [place] [address] 01/07/2023 11:20:19 01/07/2023 14:25:19 High risk 30395193 O09.293 Z3A.28 [id number] Yulissa Rudolph CNM [facility] [address] [place] [address] 01/07/2023 11:21:42 01/07/2023 14:31:37 Routine care 654150048 Z34.92 [id number] [facility] [address] [address] 01/23/2023 13:52:27 01/23/2023 14:12:21 Routine care 589754502 Z34.92 [id number] Milan Stokes MD [facility] [address],[place] [address] 01/30/2023 14:20:01 01/30/2023 15:26:25 care: poor obstetric history 794038696 O09.293 Z87.51 Z3A.31 [id number] Milan Stokes MD [facility] [address],[place] [address] 01/30/2023 14:23:02 01/30/2023 15:51:21 care: poor obstetric history 435237283 O09.293 [id number] [facility] [address] [address] 01/30/2023 14:24:18 01/30/2023 16:28:30 Routine care 154094509 Z34.92 [id number] Milan Stokes MD [facility] [address],[place] [address] 02/06/2023 14:22:57 02/06/2023 17:25:49 care: poor obstetric history 283815837 O09.293 Z3A.32 457647 Milan Stokes MD [facility] [address],[place] [address] 02/06/2023 14:24:34 02/06/2023 15:45:04 care: poor obstetric history 399768581 O09.293 [id number] [facility] [address],[place] [address] 02/06/2023 14:24:34 02/06/2023 15:45:04 Routine care 800662483 Z34.92 [id number] Milan Stokes MD [facility] [address],[place] [address] 02/13/2023 14:31:24 02/13/2023 17:11:19 care: poor obstetric history 291366775 O09.293 Z3A.33 [id number] Milan Stokes MD [facility] [address],[place] [address] 02/13/2023 14:33:10 02/13/2023 15:50:54 care: poor obstetric history 111624449 O09.293 [id number] Yulissa Rudolph [facility] [address],[place] [address] 02/13/2023 14:33:50 02/13/2023 16:20:35 Routine care [id number] Z34.92 [id number] Milan Stokes MD [facility] [address],[place] [address] 02/20/2023 14:40:56 02/20/2023 15:19:02 care: poor obstetric history 578950263 O09.293 O36.60X0 Z3A.34 [id number] Yulissa Rudolph [facility] [address],[place] [address] 02/20/2023 14:42:16 02/20/2023 15:58:36 Routine care 145900640 Z34.92 s ection following previous section 893582076 O34.219 [id number] Milan Stokes MD [facility] [address],[place] [address] 02/20/2023 14:42:16 02/20/2023 15:58:36 care: poor obstetric history 802352222 O09.293 [id number] Milan Stokes MD [facility] [address],[place] [address] 1 02/27/2023 14:32:55 02/27/2023 15:20:38 Large for gestation age fetus 985895679 O36.63X0 Z3A.35 [id number] Milan Stokes MD [facility] [address],[place] [address] 1 02/27/2023 14:35:35 02/27/2023 15:37:07 care: poor obstetric history 746682162 O09.293 [id number] [facility] [address],[place] [address] 02/27/2023 14:36:07 02/27/2023 16:01:29 Routine care 258420455 Z34.92 [id number] Milan Stokes MD [facility] [address],[place] [address] 1 03/06/2023 14:24:18 03/06/2023 15:13:18 care: poor obstetric history 757784360 O09.293 Z3A.36 [id number] Milan Stokes MD [facility] [address],[place] [address] 1 03/06/2023 14:24:41 03/06/2023 15:56:08 care: poor obstetric history 963688011 O09.293 [id number] [facility] [address],[place] [address] 1 03/06/2023 14:25:03 03/06/2023 16:24:41 Routine care 545542676 Z34.92 [id number] [facility] [address],[place] [address] 1 03/13/2023 14:19:14 03/13/2023 16:40:50 Routine care 879630890 Z34.93 [id number] Milan Stokes MD [facility] [address],[place] [address] 1 03/13/2023 14:18:14 03/13/2023 16:16:27 care: poor obstetric history 397220116 O09.293 O36.63X0 Z3A.37 [id number] Milan Stokes MD [facility] [address],[place] [address] 1 03/13/2023 14:18:52 03/13/2023 16:16:16 care: poor obstetric history 795511897 O09.293 [id number] Milan Stokes MD [facility] [address],[place] [address] 1 03/20/2023 14:27:43 03/20/2023 15:02:58 care: poor obstetric history 549805033 O09.293 O36.60X0 Z3A.38 [id number] Milan Stokes MD [facility] [address],[place] [address] 1 03/20/2023 14:28:05 03/20/2023 16:27:13 Gestational diabetes mellitus 27401470 O24.410 [id number] [facility] [address],[place] [address] 1 03/20/2023 14:28:52 03/20/2023 15:58:34 Routine care 377775886 Z34.93 [id number] Milan Stokes MD [facility] [address],[place] [address] 1 03/24/2023 10:12:05 03/24/2023 10:14:19 [id number] Milan Stokes MD [facility] [address],[place] [address] 1 03/31/2023 10:41:31 03/31/2023 11:48:33 Postoperative care 087214401 Z48.89 this patient is 27-year-ol d female presents for postop follow-up. She has no complaints . She is 1 week postop from a delivery. Her incision was clean dry and intact. Her mood is good. Her baby is doing well. She will follow-up in 3 weeks. [id number] Yulissa Rudolph CNM [facility] [address],[place] [address] 04/22/2023 10:19:47 04/22/2023 11:13:36 care 977768127 Z39.2 normal pp visit f/u wweif desires bcm may startor may want to cycle every 2 months with prometrium does not need appt to discuss [id number] GE Benites [facility] [address],[facility] [place] [address] 09/29/2023 13:53:51 09/29/2023 14:35:20 Gynecologic examination 55454554 Z01.419 WWEBC - declinedpa p updateddec lined [...] today's plan if desired. Polycystic ovary syndrome 769078377 E28.2 BC declined, prefers to restart cyclic prometrium (Q3 months) for endometria l protection rx sent, r/b/a reviewed [id number] Yulissa Rudolph CNM [facility] [address],[place] [address] 03/25/2024 15:11:02 03/25/2024 15:43:26 Irregular periods 68483878 N92.6 Amenorrhea 42896946 N91. 2 unless progestero [place] [id number] Milan Stokes MD [facility] [address],[place] [address] 06/30/2024 14:08:51 06/30/2024 16:16:52 screening 105332798 Z36.87 Z3A.01 [id number] Milan Stokes MD [facility] [address],[place] [address] 1 07/07/2024 09:00:28 07/07/2024 10:00:05 Twins with discordant growth 186502490 O36.5999 Z3A.01 [id number] Milan Stokes MD [facility] [address],[place] [address] 07/13/2024 12:17:59 07/13/2024 13:56:30 [id number] Milan Stokes MD [facility] [address],[place] [address] 1 07/19/2024 13:22:48 07/19/2024 14:01:41 Threatened miscarriage 39545017 O20.0 O31.10X9 Z3A.09 [id number] [facility] [address],[place] [address] 07/20/2024 13:55:34 07/20/2024 14:53:12 Venereal disease screening 368141261 Z11.3 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 devries inue vitamin Gestation period, 9 weeks 990284 Z3A.09 [id number] Milan Stokes MD [facility] [address],[place] [address] 1 08/09/2024 11:59:04 08/09/2024 12:49:51 screening 104619507 Z36.82 Z3A.12 [id number] Yulissa Rudolph CNM [facility] [address],[place] [address] 08/19/2024 10:49:04 08/19/2024 14:19:22 Routine care 220890877 Z34.93 Gestation period, 13 weeks 54185801 Z3A.13 [id number] Milan Stokes MD [facility] [address],[place] [address] 09/02/2024 16:15:59 09/05/2024 06:42:48 Medical examination for suspected condition 774798823 Z03.75 Z3A.15 [id number] [facility] [address],[place] [address] 1 09/02/2024 16:16:16 09/05/2024 01:34:02 Gestation period, 15 weeks 1071710 Z3A.15 Short cerv ical length in 967628672 O26.879 [id number] Milan Stokes MD [facility] [address],[place] [address] 09/30/2024 15:46:29 10/03/2024 08:55:07 screening for malformation 297564373 Z36.3 Z3A.19 [id number] [facility] [address],[place] [address] 1 09/30/2024 15:50:08 10/03/2024 07:26:59 Gestation period, 20 weeks 29676683 Z3A.20 continue vitamin [id number] Milan Stokes MD [facility] [address],[place] [address] 1 10/26/2024 14:16:40 10/26/2024 15:34:50 anatomy study 549897544 Z36.2 O43.112 Z3A.23 [id number] Yulissa Rudolph CNM [facility] [address],[place] [address] 10/26/2024 14:17:04 10/28/2024 03:36:40 Gestation period, 23 weeks 61459405 Z3A.23 [id number] Milan Stokes MD [facility] [address],[place] [address] 1 11/23/2024 15:45:47 11/23/2024 16:58:37 Follow-up encounter 245919370 Z36.2 anatomy study 2714 91140 Z36.2 Z3A.27 [id number] [facility] [address],[place] [address] 11/23/2024 15:47:01 11/23/2024 16:21:42 Gestation period, 27 weeks 29110586 Z3A.27 Past pregn dominic history of premature delivery 121121956 Z87.51 [id number] [facility] [address],[place] [address] 1 12/09/2024 15:20:26 12/09/2024 16:02:07 Gestation period, 29 weeks 82991497 Z3A.29 cont pnv [id number] [facility] [address],[place] [address] 12/23/2024 16:35:45 12/25/2024 22:01:23 Gestation period, 31 weeks 40156744 Z3A.31 cont pnv [id number] Milan Stokes MD [facility] [address],[place] [address] 1 01/04/2025 15:20:13 01/04/2025 16:14:12 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 Z3A.33 [id number] [facility] [address],[place] [address] 1 01/04/2025 15:20:46 01/04/2025 16:14:06 Gestation period, 33 weeks 11265739 Z3A.33 s ection following previous section 169061868 O34.219 [id number] Milan Stokes MD [facility] [address],[place] [address] 1 01/20/2025 15:20:12 01/20/2025 15:54:50 care status 017834938 Z34.83 [id number] Yulissa Rudolph, [facility] [address],[place] [address] 01/25/2025 16:25:12 01/25/2025 16:44:53 Gestation period, 36 weeks 43904538 Z3A.36 Health Concerns Section Related Observation LastModified [...] 2020 (MEDICAID REPLACEMENT - HMO) Gabby Holt [id number] Gabby Holt 08/08/2024 1 [place] [id number] Jordin Holt [id number] Gabby Hotl 08/17/2024 1 *SELF PAY* Sukhwinder Holt 01/12/2025 1 [place] Gabby Holt [id number] Gabby Holt 01/26/2025 1 [facility] - DOS ON OR AFTER 21 (MEDICAID REPLACEMENT - HMO) Gabby Holt [id number] Gabby Holt 09/30/2024 2 [employer] [place] - [place] ON [place] AFTER 2020 (MEDICAID REPLACEMENT - HMO) Gabby Holt [id number] Gabby Holt 01/14/2025 2 [employer] ON [place] AFTER 2020 (MED[place] REPLACEMENT - HMO) Gabby Holt [id number] Gabby Holt 02/11/2023 1 [place] [id number] Jordin Holt [id number] Gabby Holt 04/01/2024 1 *SELF PAY* Sukhwinder Holt 02/11/2023 1 [place] [id number] Jordin Holt [id number] Gabby Holt 06/30/2024 1 [place] [id number] Jordin Holt [id number] Gabby Holt 09/30/2024 1 [place] Gabby Holt [id number] Gabby Holt 01/12/2025 2 [employer]ETNA ([place]) [id number] Jordin Holt [id number] Gabby Holt 04/15/2023 PAYMENT PLAN Gabby Holt 10/02/2023 1 *SELF PAY* Sh serenity Holt 09/30/2024 1 [employer] [place] - [place] ON [place] AFTER 2020 (MEDICAID REPLACEMENT - HMO) Gabby Holt [id number] Gabby Holt Notes Date Note Type Note Provider Name and Address Organization Details Recorded Time 5 text/html Generic HPI TemplateReported by Patient Yulissa Rudolph CNM [address], [place], [address], [facility] 01/04/2025 16:13:02 5 text/html Generic HPI TemplateReported by Patient Milan Stokes MD [address], [place], [address], [facility] 01/20/2025 15:54:26 5 text/html Generic HPI TemplateReported by Patient Yulissa Rudolph CNM [address], [place], [address], [facility] 01/25/2025 16:44:27 5 text/html Generic HPI TemplateReported by Patient Not Available Not Available Not Available OBGyn Episode Ob Episode Information Episode Created Date Number of Fetuses Patient Bloodtype Patient rh Status Prepregnancy Weight lbs Domestic Partner Domestic Partner Phone Father Name Bundling Machine Operator Status 11/03/19 20 2 O Positive 171 [...] Not e Marginal insertion of umbilical cord [id number] SERIAL GROWTH U/S Dichorionic diamniotic twin 240970816 SERIAL GROWTH U/S Jerry Calculation Initial Jerry [...] Weight in lbs Pre/Post Dialysis Refused Weight 194.177508672538 BP Diastolic BP Location Tested BP Systolic [...] Weight in lbs Pre/Post Dialysis Refused Weight 205.343504116353 BP Diastolic BP Location Tested BP Systolic [...] Weight in lbs Pre/Post Dialysis Refused Weight 214.559933993185 BP Diastolic BP Location Tested BP Systolic [...] Weight in lbs Pre/Post Dialysis Refused Weight 198.552679736251 BP Diastolic BP Location Tested BP Systolic BP Type 95 157 94 159 Fetus Heart Rate Present Fetus Movement Comments Flowsheet Date 01/26/2020 Becerra Score Blood Edema Fundus Height Fundus Units Glucose Ketones Leukocytes Nitrite Labor Signs Protein Cervic Dilation Cervic Effacement Cervic Station Type Weight in lbs Pre/Post Dialysis Refused Weight 180.488094965010 BP Diastolic BP Location Tested BP Systolic BP Type 77 123 Fetus Heart Rate Present Fetus Movement Comments Flowsheet Date 08/15/2020 Becerra Score Blood Edema Fundus Height Fundus Units Glucose Ketones Leukocytes Nitrite Labor Signs Protein Cervic Dilation Cervic Effacement Cervic Station Type Weight in lbs Pre/Post Dialysis Refused Weight 175.223175577116 BP Diastolic BP Location Tested BP Systolic [...] Estim ated Date of Delivery false Thalassemia (Upper Sorbian, Djiboutian, Mediterranean, Or Background): MCV < 80 false Neural Tube Defect (Meningomyelocele, Spina Bifi da, Or Anencephaly) false Congenital Heart Defect false Down Syndrome false Man-Sachs (eg, Presybeterian, Cajun, Venezuelan-Russian) f alse Elisa Disease false Sickle Cell Disease Or Trait () false Hemophilia Or Other Blood Disorders false Muscular Dystrophy false Cystic Fibrosis false Ulysses's Chorea false Intellectual Disability/Autism false If Yes, [...] Domestic Partner Domestic Partner Phone Father Name Bundling Machine Operator Status 09/18/19 23 1 O Positive 208 CLOSED Fetus Data First Name Last Name Admitted to NICU Weight (g) Sex Living Outcome Pediatric Complications Fetus ID Race Codes Race Delivery Type 4518.91 03 M true Full Term [id number] Repeat Problems Problem Notes conceived using letrozole Problem Name Start Date End Date Resolution Snomed Code Not e Group B Streptococcus carrier 8921484486383 bacteriuria Past history of section 09/17/2022 695905258 for twins and c ord prolapse, in [place], desires TOLAC Past history of premature delivery 09/17/2022 584089387 twins, 30w Short cervical length in 058824345 Level II schd i n [facility] on 11/24 @ 0815 - vaginal progesterone until delivery Large for gestation age fetus 992168532 98% - possible c/s scheduled 39 wks [...] Date Ultra Sound Latest Days Gestation 0 [email or web address] 09/17/2022 03/28/20 23 0 Pre-sebastian Flowsheet Flowsheet Date 09/17/2022 Becerra Score Blood Edema Fundus Height Fundus Units Glucose Ketones Leukocytes Nitrite Labor Signs Protein Cervic Dilation Cervic Effacement Cervic Station neg none none trace Type Weight in lbs Pre/Post Dialysis Refused Weight 208.777583864918 BP Diastolic BP Location Tested BP Systolic BP Type 66 112 Fetus Heart Rate Present A 165 Fetus Movement A No Comments Gabby is a 27yo at 12.4 for care. Her last was complicated by a twin delivery at 30w by CS for PROM and cord prolapse. She delivered in [place], where she was closest to when it [...] Weight in lbs Pre/Post Dialysis Refused Weight 211.072356864296 BP Diastolic BP Location Tested BP Systolic [...] Weight in lbs Pre/Post Dialysis Refused Weight 216.485311099432 BP Diastolic BP Location Tested BP Systolic [...] Weight in lbs Pre/Post Dialysis Refused Weight 221.914326715643 BP Diastolic BP Location Tested BP Systolic [...] Weight in lbs Pre/Post Dialysis Refused Weight 224.421895280352 BP Diastolic BP Location Tested BP Systolic BP Type 78 127 Fetus Heart Rate Present Fetus Movement A Yes Comments patient states that having s ome BH contractions. PTL precautions, still on progesterone, will see how long they want her take it. RN to call MFM, EFW 92%, GCT today f/u 2 weeks Flowsheet Date 01/23/2023 Becerra Score Blood Edema Fundus Height Fundus Units Glucose Ketones Leukocytes Nitrite Labor Signs Protein Cervic Dilation Cervic Effacement Cervic Station neg none none trace Type Weight in lbs Pre/Post Dialysis Refused Weight 225.911076275374 BP Diastolic BP Location Tested BP Systolic [...] Weight in lbs Pre/Post Dialysis Refused Weight 226.292513725498 BP Diastolic BP Location Tested BP Systolic BP Type 79 123 Fetus Heart Rate Present Fetus Movement A Yes Comments no cramping no complaints LG A, discussed probable section if remains LGA, will f/u growth in 4 weeksEFW 98% bpp 02/10, education and precautions reviewed, ok to schedule [...] Weight in lbs Pre/Post Dialysis Refused Weight 227.601817457868 BP Diastolic BP Location Tested BP Systolic [...] Weight in lbs Pre/Post Dialysis Refused Weight 227.181152612996 BP Diastolic BP Location Tested BP Systolic [...] Weight in lbs Pre/Post Dialysis Refused Weight 228.498226071785 BP Diastolic BP Location Tested BP Systolic [...] Weight in lbs Pre/Post Dialysis Refused Weight 229.720922313833 BP Diastolic BP Location Tested BP Systolic [...] Weight in lbs Pre/Post Dialysis Refused Weight 226.057874958021 BP Diastolic BP Location Tested BP Systolic [...] Weight in lbs Pre/Post Dialysis Refused Weight 225.847813136080 BP Diastolic BP Location Tested BP Systolic BP Type 78 128 Fetus Heart Rate Present A 152 Fetus Movement A Yes Comments Patient states good FM and s welling in ankles. Continued BH ctx. Would still like to attempt vaginal delivery if she goes into labor prior to scheduled repeat c section. BPP 02/10. Flowsheet Date 03/20/2023 Becerra Score Blood Edema [...] Weight in lbs Pre/Post Dialysis Refused Weight 229.330265253025 BP Diastolic BP Location Tested BP Systolic BP Type 78 135 Fetus Heart Rate Present Fetus Movement A Yes Comments patient is having BH contrac tions. declines cervical exam bpp 02/10 efw 98% off this weekend rpt c/section [...] Estim ated Date of Delivery false Thalassemia (Upper Sorbian, Djiboutian, Mediterranean, Or Background): MCV < 80 false Neural Tube Defect (Meningomyelocele, Spina Bifi da, Or Anencephaly) false Congenital Heart Defect false Down Syndrome false Man-Sachs (eg, Presybeterian, Cajun, Venezuelan-Russian) f alse Elisa Disease false Sickle Cell Disease Or Trait () false Hemophilia Or Other Blood Disorders false Muscular Dystrophy false Cystic Fibrosis false Orlando's Chorea false Intellectual Disability/Autism false If Yes, [...] Domestic Partner Domestic Partner Phone Father Name Bundling Machine Operator Status 08/19/19 25 1 O Positive 199 Jordin sims OPEN Fetus Data First Name Last Name Admitted to NICU Weight (g) Sex Living Outcome Pediatric Complications Fetus ID Race Codes Race Delivery Type 10410 Problems Problem Notes + GBS Problem Name Start Date End Date Resolution Snomed Code Not e Past history of premature delivery 647686020 cord p rolapse, twins 2020 Large for gestation age fetus 725948546 in Past history of section 706345832 x 2 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 9106803 chikiswmirella @ 32wks Jerry Calculation Initial Jerry Date Initial Exam Date Initial Exam Provider Initial Ultrasound Date Last Menstrual Period Date Ultra Sound Weeks Gestation 02/18/2025 07/07/2024 Yulissa Klaudia 07/07/2024 05/14/2024 7 Eighteen To Twenty Week [...] Weight in lbs Pre/Post Dialysis Refused Weight 204.886614982984 BP Diastolic BP Location Tested BP Systolic [...] Type Weight in lbs Pre/Post Dialysis Refused 203.11624208513 BP Diastolic BP Location Tested BP Systolic [...] Type Weight in lbs Pre/Post Dialysis Refused 211.642573271539 BP Diastolic BP Location Tested BP Systolic [...] Type Weight in lbs Pre/Post Dialysis Refused 215.550967231789 BP Diastolic BP Location Tested BP Systolic [...] Type Weight in lbs Pre/Post Dialysis Refused 218.430778633635 BP Diastolic BP Location Tested BP Systolic [...] Weight in lbs Pre/Post Dialysis Refused Weight 219.942688815373 BP Diastolic BP Location Tested BP Systolic [...] Weight in lbs Pre/Post Dialysis Refused Weight 221.835223002324 BP Diastolic BP Location Tested BP Systolic [...] Type Weight in lbs Pre/Post Dialysis Refused 223.931337001426 BP Diastolic BP Location Tested BP Systolic [...] Weight in lbs Pre/Post Dialysis Refused Weight 220.684654587171 BP Diastolic BP Location Tested BP Systolic [...] Weight in lbs Pre/Post Dialysis Refused Weight 220.937258997071 BP Diastolic BP Location Tested BP Systolic BP Type 90 L arm 150 sitting 94 R arm 151 sitting Fetus Heart Rate Present A 152 Present Fetus Movement A Yes Comments some slight swelling, +FM, c an feel her bp elevate, to ld for evaluation Flowsheet Date 01/27/2025 Becerra Score Blood Edema Fundus Height Fundus Units Glucose Ketones Leukocytes Nitrite Labor Signs Protein Cervic Dilation Cervic Effacement Cervic Station Type Weight in lbs Pre/Post Dialysis Refused 220.113447485391 BP Diastolic BP Location Tested BP Systolic BP Type 87 L arm 143 sitting Fetus Heart Rate Present Fetus Movement Comments Flowsheet Date 01/27/2025 Becerra Score Blood Edema Fundus Height Fundus Units Glucose Ketones Leukocytes Nitrite Labor Signs Protein Cervic Dilation Cervic Effacement Cervic Station Type Weight in lbs Pre/Post Dialysis Refused Weight 220.031649150717 BP Diastolic BP Location Tested BP Systolic BP Type 87 L arm 143 sitting Fetus Heart Rate Present Fetus Movement Comments [...]
--- OUTSIDE RECORDS SUMMARY | 2025-01-27 11:02 | XMS_ITS | Clinical Summary ---
Author Organization [facility] Address [address] [place] [address] Care Team Providers Care Maintenance Supervisor Electrical Name Role Phone Yulissa Rudolph NP Primary Care Provider + [phone] Allergies No known active allergies Medications [id number]-qwlj cb,of-rujuf-iql- dha 27-1-50-250 mg combo pack Take by [...] CDT Gender Identity Female 07/01/2019 6:12 PM ASSISTED LIVING EXECUTIVE DIRECTOR Sexual Orientation Straight 07/01/2019 6: 12 PM ASSISTED LIVING EXECUTIVE DIRECTOR Obstetrics History Para Term AB IAB SAB Ectopic Multiple Livin g Live Births 1 0 0 0 0 0 0 0 0 0 0 Date Outcome GA Total Labor Labor/2nd/3rd Weight Sex Type Anes PTL Josefina A1 A5 Name Clin Last Filed Vital Signs Vital Sign Reading Time Taken Comments Blood Pressure 123/70 08/02/2019 1:01 PM ASSISTED LIVING EXECUTIVE DIRECTOR Pulse 68 08/02/2019 1:01 PM ASSISTED LIVING EXECUTIVE DIRECTOR Temperature - - Respiratory Rate - - Oxygen Saturation - - Inhaled Oxygen Concentration - - Weight 76.7 kg (169 lb) 08/02/2019 1:01 PM ASSISTED LIVING EXECUTIVE DIRECTOR Height 175.3 cm (5' 9) 08/02/2019 1:01 PM ASSISTED LIVING EXECUTIVE DIRECTOR Body Mass Index 24.96 08/02/2019 1:01 PM ASSISTED LIVING EXECUTIVE DIRECTOR Plan of Treatment Not on file Insurance [facility] Care Teams Maintenance Supervisor Electrical Relationship Specialty Start Date End Date Yulissa Rudolph NP PCP - General Obstetrics and Gynecology 01/19/19
[2025-01-27] MEDS: ACETAMINOPHEN 500 MG TABLET 1000 MG PO (11:27)
[2025-01-27 11:33] LABS: Hematocrit 37.7 % (37.0-47.0); Hemoglobin 13.0 g/dL (12.0-15.0); Immature Granulocyte Percent A 0.4 % (0-0.5); Lymphocytes Absolute Auto 1.63 K/mm3 (0.9-3.2); Mean Corpuscular HGB Conc 34.5 g/dl (32-36); Mean Corpuscular Hemoglobin 29.1 pg (26-34); Mean Corpuscular Volume 84.5 fl (80-100); Nucleated Red Blood Cells Absolute Auto 0.000 K/mm3 (0.0-0.012); Nucleated Red Blood Cells Perc 0.0 % (0.0-0.2); Platelet Count Result 228 k/mm3 (150-375); Red Blood Count 4.46 M/mm3 (4.2-5.4); White Blood Count 8.1 K/mm3 (4.5-10.0)
[2025-01-27 11:51] LABS: Alanine Aminotransferase 14 U/L (6-35); Albumin Level 4.0 g/dL (3.5-5.1); Alkaline Phosphatase 101 U/L (38-126); Anion Gap 10 mmol/L (4-12); Aspartate Amino Transferase 39 U/L (14-36); Bilirubin,Total 0.4 mg/dL (0.2-1.3); Blood Urea Nitrogen 3 mg/dL (7-17); Calcium 9.3 mg/dL (8.4-10.2); Carbon Dioxide 18 mmol/L (22-30); Chloride 108 mmol/L (98-107); Estimated Glomerular Filt Rate > 60; Glucose 89 mg/dL (65-110); Potassium 4.1 mmol/L (3.4-5.0); Sodium 136 mmol/L (137-145); Total Protein 7.7 g/dL (6.3-8.2); Uric Acid 4.5 mg/dL (2.5-7.5)
== END 2025-01-27 12:30 ==
LOC: ANHOBOP 11:00 → ANHOBPP 11:00
PROVIDERS: Visit Provider Obstetrics & Gynecology
DX: R51.9 Headache, unspecified (principal)
CPT/HCPCS: 36415; 59025; 80053; 84550; 85025; 99199; A9270

== ENCOUNTER 2025-01-29 08:23 | Outpatient (CLI) | payer OTHER, SELFPAY ==
--- OUTSIDE RECORDS SUMMARY | 2025-01-29 08:29 | XMS_ITS | Clinical Summary ---
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 Sexual Orientation Straight 07/01/2019 6: 12 PM BULLET SLUG CASTING MACHINE OPERATOR Obstetrics History Para Term AB IAB SAB Ectopic Multiple Livin g Live Births 1 0 0 0 0 0 0 0 0 0 0 Date Outcome GA Total Labor Labor/2nd/3rd Weight Sex Type Anes PTL Josefina A1 A5 Name Clin Last Filed Vital Signs Vital Sign Reading Time Taken Comments Blood Pressure 123/70 08/02/2019 1:01 PM BULLET SLUG CASTING MACHINE OPERATOR Pulse 68 08/02/2019 1:01 PM BULLET SLUG CASTING MACHINE OPERATOR Temperature - - Respiratory Rate - - Oxygen Saturation - - Inhaled Oxygen Concentration - - Weight 76.7 kg (169 lb) 08/02/2019 1:01 PM BULLET SLUG CASTING MACHINE OPERATOR Height 175.3 cm (5' 9) 08/02/2019 1:01 PM BULLET SLUG CASTING MACHINE OPERATOR Body Mass Index 24.96 08/02/2019 1:01 PM BULLET SLUG CASTING MACHINE OPERATOR Plan of Treatment Not on file Insurance [facility] Care Teams Agronomy Specialist Relationship Specialty Start Date End Date Yulissa Rudolph NP PCP - General Obstetrics and Gynecology 01/19/19
--- OUTSIDE RECORDS SUMMARY | 2025-01-29 08:29 | XMS_ITS | Encounter Summary ---
Author Organization [facility] Address [address] [place] [address] Phone Care Team Providers Care Emergency Medical Dispatcher Name Role Phone Yulissa Rudolph NP Primary Care Provider + [phone] Encounter Details Date Type Department Care Team (Late st Contact Info) Description 06/06/2019 Orders Only [facility] [address] [id number] Brianna De Leon MD [address] [address] Encounter for fertility testing (Primary [...] CDT Gender Identity Female 07/01/2019 6:12 PM [employer] Sexual Orientation Straight 07/01/2019 6: 12 PM [employer] documented as of this encounter Plan of Treatment Not on file documented as of this encounter Procedures Procedure Name Priority Date/Time Associated Diagnosis Comments PROGESTERONE Routine 06/08/2019 9:17 AM [employer] Encounter for fertility testing documented in this encounter Results * Progesterone (06/08/2019 9:17 AM [employer]) Progesterone 28.2 ng/mL [facility] - 01 Comment: Follicular phase 0.1 - 0.9 Luteal phase 1.8 - 23.9 Ovulation phase 0.1 - 12.0 First trimester 11.0 - 44.3 Second trimester 25.4 - 83.3 Third trimester 58.7 - 214.0 Postmenopausal 0.0 - 0.1 Blood specimen (specimen) 06/08/2019 9:17 AM [employer] 06/08/2019 Narrative [facility] - 06/09/2019 6:08 AM [employer] Performed at: - [facility] [address] [id number] Compliance Program Manager: Kirt Harman PhD, Phone: [phone] us Brianna De Leon MD LAB BLOOD ORDERABLES Final R esult [facility] - 01 documented in this encounter Visit Diagnoses Diagnosis Encounter for fertility testing- Primary Encounter for other procreative management documented in this encounter Care Teams Emergency Medical Dispatcher Relationship Specialty Start Date End Date Yulissa Rudolph NP PCP - General Obstetrics and Gynecology 01/19/19 documented as of this encounter
--- OUTSIDE RECORDS SUMMARY | 2025-01-29 08:29 | XMS_ITS | Data Portability ---
Author Organization [facility] Address [address] [place] [address] [place] [address] Assessment Encounter Date Assessment Date Assessment LastModified by Organization Details LastModified Time 01/20/2025 01/20/2025 Patient is ___weeks . Discussed plan. [email or web address] Not available 01/20/2025 15:30:27 01/25/2025 01/25/2025 Patient is _36__weeks . Discussed plan. [email or web address] Not available 01/25/2025 16:44:03 01/27/2025 01/27/2025 Patient is _36__weeks . Discussed plan. [email or web address] Not available 01/27/2025 16:41:51 Plan of Treatment Reminders Order Date Submit Date Provider Last Modified By Organization Details Last Modified Time Details Appointments SURG CSection 2024 10:00A Geronimo STOKES MD [...] CNM Not available Not available Not available Lab None recorded. Referral None recorded. Procedures None recorded. Surgeries None recorded. Imaging non-stres s test 2024 025 [email or web address] [address], [address], [place], [address], 01/27/2025 12:04:23 US, obstetric , follow-up 2024 025 [email or web address] [address], [address], [place], [address], 01/06/2025 22:15:55 Medication Orders None recorded. Patient [...] t Abnor mal: Yes Resul ting Lab: [facility] [address] [facility] [address] Tel: CULTU RE ----- ----- ----- --- [...] nay for these drugs . Not Available [facility] (Lab) [address] [facility], [place], [address], 01/25/2025 15:36:22 01/05/2001/04/2025 US, obste tric, follo w-up No observ ation record ed. [email or web address] [address], [place], [address], 01/13/2025 16:11:09 01/05/20 25 01/04/2025 US, obste tric, follo w-up No observ ation record ed. [email or web address] [place] [address], [place], [address], 01/04/2025 17:48:51 01/26/20 25 01/25/2025 non-s tress test No observ ation record ed. [email or web address] [place] [id number], [place], [address], 01/28/2025 10:57:30 01/28/20 25 01/27/2025 non-s tress test No observ ation record ed. [email or web address] [place] [address], [place], [address], 01/27/2025 12:26:53 01/28/2001/27/2025 non-s tress test No observ ation record ed. [email or web address] Not Available 2024 10:44:04 Result Notes None recorded. Problems Name Problem SNOMED Code Status Onset Date Resolution Date Notes Provider Name and Address Organization Details Recorded Time Past pregnanc y history of section 619627716 Active x 2 Yulissa Rudolph CNM [address], [place], [address], [place] [facility] 13:52:31 Past pregnanc y history of prematur e delivery 446213275 Active cord prolapse , twins 2019 Yulissa Rudolph CNM [address], [place], [address], [place] [facility] 13:54:07 Group B Streptoc occus carrier 3192768759 103 Completed bacteriu john Richards null, [facility] 3 14:47:05 Short cervical length in pregnanc y 744642188 Completed Level II schd in [facility] on 11/24 @ 0815 - vaginal progeste mary until delivery Kirk Richards null, [facility] 3 14:47:05 Large for gestatio n age fetus Completed 98% - possible c/s schedule d 39 wks Kirk Richards null, [facility] 3 14:47:05 Past pregnanc y history of prematur e delivery 350935554 Active cord prolapse , twins 2019 Yulissa Rudolph CNM [address], [place], [address], [facility] 5 13:54:06 Past pregnanc y history of section 071262009 Active x 2 Yulissa Rudolph CNM [address], [place], [address], [facility] 5 13:52:31 Vanishin g twin syndrome 276377744 Active current pregnanc y Yulissa Rudolph CNM [address], [place], [address], [facility] 5 13:52:25 Large for gestatio n age fetus Active pregnanc y in 2022 Yulissa Rudolph CNM [address], [place], [address], [facility] 5 13:52:51 Placenta circumva llata 5783150 Active grwoth @ 32wks Jessica Cason null, [facility] 5 23:17:10 Dichorio yunior diamniot ic twin pregnanc y 549300301 Completed SERIAL GROWTH U/S Isabel blackman, [facility] 11:35:41 Marginal insertio n of umbilica l cord 93183975 Completed SERIAL GROWTH U/S Isabel blackman, [facility] 11:35:41 Amenorrh ea 28146872 Completed 201708/15/2020 Amenorrh ea;Recor ded Elsewher e: No Locat ion: Keyla moss [facility] S ource: EHR Supervisor Agricultural Education yunior: N Practi ce ID: 0001 Manpreet lable Time: 01:00:00 PM Isabel blackman, [facility] 11:31:12 Secondar y amenorrh ea 064950553 Completed 201708/15/2020 Secondar y amenorrh ea;Pract ice ID: 0001 Isabel Abdul [facility], [facility] 11:31:38 Finding of pattern of menstrua l cycle Completed 201708/15/2020 Other specifie d irregula r menstrua tion;Rec orded Elsewher e: No Locat ion: Maggisarah moss [facility] S ource: EHR Supervisor [employer] Education yunior: N Practi ce ID: 0001 Manpreet lable Time: 02:30:00 PM Isabel Abdul [facility], [facility] 11:31:[address] Concept Completed 201708/15/2020 Encntr for general adult medical exam w/o abnormal findings ;Recorde d Elsewher e: No Locat ion: Keyla moss [facility] S ource: EHR Supervisor [employer] Education yunior: N Practi ce ID: 0001 Manpreet lable Time: 02:00:00 PM Isabel blackman, [facility] 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 11:31:43 Body mass index 25-29 - overweig ht 769216240 Completed 201708/15/2020 Body mass index (BMI) 25.0-25. 9, adult;Re corded Elsewher e: No [facility] EHR Supervisor Agricultural Education yunior: N Practi ce ID: 0001 Manpreet lable Time: 02:00:00 PM Isabel Abdul [facility], [facility] 11:31:17 Polycyst ic ovary syndrome 860278655 Completed 201801/25/2021 Polycyst ic ovarian syndrome ;Recorde d Elsewher e: No [facility]: EHR Supervisor Agricultural Education yunior: N Practi ce ID: 0001 Manpreet lable Time: 11:15:00 AM Isabel Abdul yehuda, [facility] 11:00:57 Pregnanc y test negative 958754170 Completed 201808/15/2020 Encounte r for pregnanc y test, result negative ;Recorde d Elsewher e: No [facility]: EHR Supervisor Agricultural Education yunior: N Practi ce ID: 0001 Manpreet lable Time: 02:00:00 PM Isabel Abdul yehuda, [facility] 11:31:33 Finding of fertilit y Completed 201808/15/2020 Female infertil ity, unspecif ied;Tevin rded Elsewher e: No [facility]: EHR Supervisor Agricultural Education yunior: N Practi ce ID: 0001 Manpreet lable Time: 04:30:00 PM Isabel Abdul yehuda, [facility] 11:31:24 Pregnanc y detectio n examinat ion Completed 201908/15/2020 Encounte r for pregnanc y test, result positive ;Recorde d Elsewher e: No Locat ion: Keyla moss [facility] S ource: EHR Supervisor [employer] Education yunior: N Practi ce ID: 0001 Manpreet lable Time: 05:15:00 PM Isabel blackman, [facility] 11:31:31 Twin pregnanc y Completed 201908/15/2020 Twin pregnanc y;Record ed Elsewher e: No Locat ion: Keyla moss [facility] S ource: EHR Supervisor [employer] Education yunior: N Practi ce ID: 0001 Manpreet lable Time: 08:30:00 AM Isabel blackman, [facility] 11:31:19 Antenata l screenin g Completed 201908/15/2020 Encounte r for other specifie d antenata l screenin g;Record ed Elsewher e: No Locat ion: Keyla moss [facility] S ource: EHR Supervisor Agricultural Education yunior: N Practi ce ID: 0001 Manpreet lable Time: 08:30:00 AM Isabel blackman, [facility] 11:31:14 Gestatio n period, 12 weeks 52403746 Completed 201908/15/2020 12 weeks gestatio n of pregnanc y;Record ed Elsewher e: No Locat ion: Keyla moss [facility] S ource: EHR Supervisor Agricultural Education yunior: N Practi ce ID: 0001 Manpreet lable Time: 02:30:00 PM Isabel blackman, [facility] 11:31:28 Disorder of labor / delivery Completed 201908/15/2020 Twin pregnanc y, dichorio yunior/diam niotic, first trimeste r;Record ed Elsewher e: No Locat ion: Keyla moss [facility] S ource: EHR Supervisor Agricultural Education yunior: N Practi ce ID: 0001 Manpreet lable Time: 02:30:00 PM Isabel blackman, [facility] 11:31:21 Pregnanc y, childbir th and puerperi um finding Completed 201908/15/2020 Encntr for suprvsn of normal first preg, second trimeste r;Record ed Elsewher e: No Locat ion: Keyla moss [facility] S ource: EHR Supervisor Agricultural Education yunior: N Practi ce ID: 0001 Manpreet lable Time: 11:15:00 AM Isabel blackman, [facility] 11:31:36 Twin dichorio yunior diamniot ic placenta 89217275 Completed 201908/15/2020 Serial growth, NSTs @ 32 weeks! Isabel blackman [facility] 11:31:46 Pregnanc y 76154919 Completed 201907/23/2020 Isabel blackman, [facility] 5 11:18:45 Pregnanc y 09949284 Completed 202203/30/2023 Isabel blackman, [facility] 5 11:18:45 Past pregnanc y history of section 965739811 Completed 2022 for twins and cord prolapse , in eld, desires TOLAC Kirk blackman, [facility] 3 14:47:05 Past pregnanc y history of prematur e delivery 705623110 Completed 2022 twins, 30w Kirk blackman, [facility] 3 14:47:05 Pregnanc y 88065656 Active 2024 Isabel blackman, [facility] 5 11:18:44 Problem Notes None recorded. Procedures Surgical History Date Name Laterality Status Provider Name and Address Organization Details Recorded Time 4 Date of Last Pap Smear completed [facility] 03/25/2024 14:26:38 3 Caesarean Section completed [facility] 03/25/2024 15:22:08 0 section completed [facility] 08/15/2020 11:36:23 7 tonsilectomy/a denoids completed [facility] 08/15/2020 11:36:13 Imaging Results None recorded. [...] No Locat ion: Keyla moss [facility] M odify By: maranda faith DateTime : 05/06/20 [...] (of each month). 12/08 completed Prescrib ed Shay e: No [facility] M odify By: charleen coelho DateTime : 06/15/20 10:15:00 AM Not Available [...] Address Organization Details Last Updated DateTime 01/04/2025 719147.09 851 g 34.9 kg/m2 170.18 cm 127/81 mm[Hg] Orquidea Nicole DE - [facility] 01/04/2025 15:49:07 Date Recorded Body height Body mass index (BMI) Body weight Systolic And Diastolic Provider Name and Address Organization Details Last Updated DateTime 01/20/2025 170.18 cm 34.5 kg/m2 45934.32 g 138/82 mm[Hg] Orquidea Nicole [facility] 01/20/2025 15:31:38 Date Recorded Body height Body mass index (BMI) Body weight Systolic And Diastolic Systolic And Diastolic Provider Name and Address Organization Details Last Updated DateTime 01/25/2025 170.18 cm 34.5 kg/m2 09479.32 g 150/90 mm[Hg] 151/94 mm[Hg] [facility] 16:33:08 Date Recorded Body height Body mass index (BMI) Body weight Systolic And Diastolic Provider Name and Address Organization Details Last Updated DateTime 01/27/2025 170.18 cm 34.5 kg/m2 08662.32 g 143/87 mm[Hg] MERCEDEZ Rincon [facility] 01/27/2025 12:01:44 Date Recorded Body weight Body mass index (BMI) Body height Systolic And Diastolic Provider Name and Address Organization Details Last Updated DateTime 01/27/2025 03389.321 4 g 34.5 kg/m2 170.18 cm 143/87 mm[Hg] [facility] 01/27/2025 11:31:17 Social History Question Answer Notes LastModified by Organizat ion Details LastModified Time Tobacco Smoking Status Never Smoker Isabel blackman, [facility] 04/22/2023 10:45:36 Do You Have An Advance Directive? No [email or web address] Information n ot available 10/26/2020 If You Are , What Was Your Level Of Alcohol Consumption Prior To ? None [email or web address] Information not available 04/22/2023 Are You Blind Or Do You Have Difficulty Seeing? No [email or web address] Information n ot available 10/26/2020 What Is Your Level Of Caffeine Consumption? Occasional [email or web address] Information not available 09/30/2024 How Much Tobacco Do You Chew? None [email or web address] Information not available 08/26/2022 In The 14 Days Before Symptom Onset, Have You Had Close Contact With A Laboratory-confirm ed COVID-19 While That Case Was Ill? No [email or web address] Information n ot available 10/26/2020 In The 14 Days Before Symptom Onset, Have You Had Close Contact With A Person Who Is Under Investigation For COVID-19 While That Person Was Ill? No [email or web address] Information not available 10/26/2020 Have You Been To An Area Known To Be High Risk For COVID-19? No [email or web address] Information not available 10/26/2020 Are You Deaf Or Do You Have Serious Difficulty Hearing? No [email or web address] Information not available 10/26/2020 What Type Of Diet Are You Following? REGULAR [email or web address] Information n ot available 05/02/2022 What Is The Highest Grade Or Level Of School You Have Completed Or The Highest Degree You Have Received? MC42638-3 [email or web address] Information not available 10/26/2020 Are There Any Guns Present In Your Home? No [email or web address] Information not available 10/26/2020 Do You Use Protection During Sex? No [email or web address] Information not available 05/02/2022 Do You Use Your Seat Belt Or Car Seat Routinely? Yes [email or web address] Information not available 10/26/2020 Do You Have Smoke And Carbon Monoxide Detectors In Your Home? Yes [email or web address] Information not available 10/26/2020 How Much Tobacco Do You Smoke? No [email or web address] Information not available 08/15/2020 Do You Use Sunscreen Routinely? Yes [email or web address] Information not available 10/26/2020 Has Tobacco Cessation Counseling Been Provided? No [email or web address] Information not available 04/22/2023 Have You Used IV Drugs? No [email or web address] Information not available 10/26/2020 Do You Have Difficulty Walking Or Climbing Stairs? No [email or web address] Information not available 04/22/2023 Sex: Unknown Functional Status Question Answer Note LastModified by Organizat ion Details LastModified Time Do you use any illicit or recreational drugs? No [email or web address] Information not available 08/15/2020 Do you or have you ever used any other forms of tobacco or nicotine? No [email or web address] Information not available 04/22/2023 What is your level of alcohol consumption? None [email or web address] Information not available 08/15/2020 Are you able to walk? YESWOREST [email or web address] Information not available 10/26/2020 Are you able to care for yourself independently? 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 No [email or web address] Information not available 04/22/2023 What is your exercise level? Occasional [email or web address] Information not available 11/23/2024 Mental Status Question Answer Note LastModified by Organization D etails LastModified Time Do you feel stressed (tense, restless, nervous, or anxious, or unable to sleep at night)? [id number] Information not available 09/29/2023 Family History Relationship [...] Code Diagnosis Note 2571 Milan Stokes MD [place] [address] [address] 11/03/2019 09:54:35 11/03/2019 12:21:02 Dichorionic diamniotic twin 910432862 O30.009 2573 MD Corrine Vickers [address] [address] 11/03/2019 09:56:00 11/03/2019 16:09:58 screening for malformation 004104558 Z36.3 5615 Milan Stokes MD [place] [address] [address] 12/01/2019 11:25:21 12/01/2019 13:20:25 screening 731487803 O30.042 Z3A.24 screening for malformation 862118971 Z36.3 5616 Milan Stokes MD [place] [address] [address] 12/01/2019 11:26:09 12/01/2019 13:20:45 Dichorionic diamniotic twin 419160966 O30.009 9189 Milan Stokes MD [place] [address] [place] [address] 12/27/2019 15:10:49 12/27/2019 16:50:18 Dichorionic diamniotic twin 341548210 O30.043 O43.93 Z36.2 Z3A.28 9190 Milan Stokes MD [place] [address],[place] [address] 12/27/2019 15:11:07 12/27/2019 17:48:03 Routine care 164320785 Z34.82 Dichorioni c diamniotic twin 160000263 O30.043 O43.93 Z36.2 Z3A.28 28263 Milan Stokes MD [place] [address],[place] [address] 01/18/2020 18:00:28 01/18/2020 18:56:12 Wound cellulitis 186636654 L03.90 This patient is a 24-year-ol d [...] s. She will return in 1 week. 49072 Milan Stokes MD [place] [address] [address] 01/26/2020 09:06:09 01/26/2020 09:56:15 Infection of obstetric surgical wound 742077762 O86.00 This patient is a 24-year-ol d female presents for follow-up on suspected surgical incision problem. She had induration and erythema of her incision site from her . She had a for twins.The delivery was at 30 weeks.Inci sions today is clean dry and intact. There isno erythema and no induration . She agreed to follow-up in2 weeks for routine visit. [address] Yulissa Rudolph CNM [place] [address],[place] [address] 08/15/2020 11:01:40 08/15/2020 12:10:42 Contraception care management 505278826 Z30.9 22455 [facility] [address] [address] 10/26/2020 15:07:42 10/26/2020 15:58:33 Gynecologic examination 50640829 Z01.419 94951 Yulissa Rudolph [facility] [address],[place] [address] 01/25/2021 10:48:49 01/25/2021 11:16:47 Sampling of vagina for Papanicolaou smear 774866668 Z01.42 [id number] Yulissa Rudolph [facility] [address],[place] [address] 05/02/2022 15:11:28 05/02/2022 16:07:32 Gynecologic examination 10554702 Z01.419 Z11.3 Z11.8 Irregular periods 611334 07 N92.6 Trying to conceive 10987 9001 Z31.9 reviewed se risks and benefits [...] 5mg, plan to check progestero ne level [id number] Milan Stokes MD [place] [address],[place] [address] 08/07/2022 10:46:25 08/07/2022 11:54:12 [id number] Milan Stokes MD [place] [address],[place] [address] 08/26/2022 11:53:15 08/26/2022 12:36:07 Uncertain viability of 931002256 O36.80X0 Z3A.09 585883 Bhavana Zimmerman [facility] [address],[place] [address] 08/26/2022 12:20:44 08/27/2022 17:14:18 Amenorrhea 73803250 N91.2 Venereal d isease screening 415380361 Z11.3 test positive 334173371 Z32.01 Risk factors addressed: Tobacco Cessation, Safe [...] annual well woman examinatio n and address [facility] . [id number] Betzy Ng MD [place] [address],[place] [address] 09/17/2022 15:11:10 09/17/2022 15:50:21 screening 679408537 Z36.82 [id number] Betzy Ng MD [place] [address],[place] [address] 09/17/2022 15:12:09 09/17/2022 17:31:36 Routine care 457725492 Z34.91 Past pregn dominic history of section 817089740 Z98.890 interested in TOLAC Past pregn dominic history of premature delivery 114588814 Z87.51 twins, 30w 230338 [facility] [address],[place] [address] 10/15/2022 16:42:15 10/15/2022 17:35:12 Routine care 288552347 Z34.92 [id number] Betzy Ng MD [place] [address],[place] [address] 11/12/2022 13:45:08 11/12/2022 15:05:25 screening for malformation 206591686 Z36.3 [id number] [facility] [address],[place] [address] 11/12/2022 14:56:29 11/12/2022 15:50:10 Routine care 852998677 Z34.92 [id number] Yulissa Rudolph [facility] [address],[place] [address] 12/10/2022 15:07:25 12/10/2022 16:25:31 Routine care 997365510 Z34.92 [id number] Milan Stokes MD [place] [address],[place] [address] 01/07/2023 11:20:19 01/07/2023 14:25:19 High risk 03621972 O09.293 Z3A.28 [id number] Yulissa Rudolph [facility] [address],[place] [address] 01/07/2023 11:21:42 01/07/2023 14:31:37 Routine care 740577278 Z34.92 [id number] [facility] [address],[place] [address] 01/23/2023 13:52:27 01/23/2023 14:12:21 Routine care 259015058 Z34.92 [id number] Milan Stokes MD [place] [address],[place] [address] 01/30/2023 14:20:01 01/30/2023 15:26:25 care: poor obstetric history 327091510 O09.293 Z87.51 Z3A.31 [id number] Milan Stokes MD [place] [address],[place] [address] 01/30/2023 14:23:02 01/30/2023 15:51:21 care: poor obstetric history 691643316 O09.293 [id number] Yulissa Rudolph CNM [place] [address],[place] [address] 01/30/2023 14:24:18 01/30/2023 16:28:30 Routine care 909262046 Z34.92 [id number] Milan Stokes MD [place] [address],[place] [address] 02/06/2023 14:22:57 02/06/2023 17:25:49 care: poor obstetric history 691860251 O09.293 Z3A.32 [id number] Milan Stokes MD [place] [address],[place] [address] 02/06/2023 14:24:34 02/06/2023 15:45:04 care: poor obstetric history 779878803 O09.293 [id number] [facility] [address],[place] [address] 02/06/2023 14:24:34 02/06/2023 15:45:04 Routine care 423012163 Z34.92 [id number] Milan Stokes MD [place] [address],[place] [address] 02/13/2023 14:31:24 02/13/2023 17:11:19 care: poor obstetric history 197950278 O09.293 Z3A.33 317205 Milan Stokes MD [place] [address],[place] [address] 02/13/2023 14:33:10 02/13/2023 15:50:54 care: poor obstetric history 408751444 O09.293 [id number] [facility] [address],[place] [address] 02/13/2023 14:33:50 02/13/2023 16:20:35 Routine care 003831119 Z34.92 [id number] Milan Stokes MD [place] [address],[place] [address] 02/20/2023 14:40:56 02/20/2023 15:19:02 care: poor obstetric history 588448269 O09.293 O36.60X0 Z3A.34 [id number] Yulissa Rudolph CNM [place] [address],[place] [address] 02/20/2023 14:42:16 02/20/2023 15:58:36 Routine care 344553581 Z34.92 s ection following previous section 959961652 O34.219 [id number] MD Corrine Vickers [address],[place] [address] 02/20/2023 14:42:16 02/20/2023 15:58:36 care: poor obstetric history 526005232 O09.293 [id number] MD Corrine Vickers [address],[place] [address] 02/27/2023 14:32:55 02/27/2023 15:20:38 Large for gestation age fetus 049174003 O36.63X0 Z3A.35 [id number] MD Corrine Vickers [address],[place] [address] 02/27/2023 14:35:35 02/27/2023 15:37:07 care: poor obstetric history 391197297 O09.293 [id number] Yulissa Rudolph CNM [place] [address],[place] [address] 02/27/2023 14:36:07 02/27/2023 16:01:29 Routine care 255843585 Z34.92 [id number] MD Corrine Vickers [address],[place] [address] 03/06/2023 14:24:18 03/06/2023 15:13:18 care: poor obstetric history 282574865 O09.293 Z3A.36 [id number] Milan Stokes MD [place] [address],[place] [address] 03/06/2023 14:24:41 03/06/2023 15:56:08 care: poor obstetric history [id number] O09.293 [id number] Yulissa Rudolph CNM [place] [address],[place] [address] 03/06/2023 14:25:03 03/06/2023 16:24:41 Routine care 432629684 Z34.92 [id number] [facility] [address],[place] [address] 03/13/2023 14:19:14 03/13/2023 16:40:50 Routine care 681220486 Z34.93 [id number] Milan Stokes MD [place] [address],[place] [address] 1 03/13/2023 14:18:14 03/13/2023 16:16:27 care: poor obstetric history 250492569 O09.293 O36.63X0 Z3A.37 [id number] MD Corrine Vickers [address],[place] [address] 1 03/13/2023 14:18:52 03/13/2023 16:16:16 care: poor obstetric history [id number] O09.293 [id number] MD Corrine Vickers [address],[place] [address] 1 03/20/2023 14:27:43 03/20/2023 15:02:58 care: poor obstetric history 595029570 O09.293 O36.60X0 Z3A.38 [id number] MD Corrine Vickers [address],[place] [address] 1 03/20/2023 14:28:05 03/20/2023 16:27:13 Gestational diabetes mellitus 77989058 O24.410 [id number] Yulissa Rudolph CNM [place] [address],[place] [address] 1 03/20/2023 14:28:52 03/20/2023 15:58:34 Routine care 381817807 Z34.93 [id number] MD Corrine Vickers [address],[place] [address] 1 03/24/2023 10:12:05 03/24/2023 10:14:19 [id number] Milan Stokes MD [place] [address],[place] [address] 1 03/31/2023 10:41:31 03/31/2023 11:48:33 Postoperative care 300112313 Z48.89 this patient is 27-year-ol d female presents for postop follow-up. She has no complaints . She is 1 week postop from a delivery. Her incision was clean dry and intact. Her mood is good. Her baby is doing well. She will follow-up in 3 weeks. [id number] Yulissa Rudolph CNM [place] [address],[place] [address] 04/22/2023 10:19:47 04/22/2023 11:13:36 care 738109452 Z39.2 normal pp visit f/u wweif desires bcm may startor may want to cycle every 2 months with prometrium does not need appt to discuss [id number] GE Benites [place] [address],[place] [address] 1 09/29/2023 13:53:51 09/29/2023 14:35:20 Gynecologic examination 58228008 Z01.419 WWEBC - declinedpa p updateddec lined [...] today's plan if desired. Polycystic ovary syndrome 194168533 E28.2 BC declined, prefers to restart cyclic prometrium (Q3 months) for endometria l protection rx sent, r/b/a reviewed [id number] [facility] [address],[place] [address] 1 03/25/2024 15:11:02 03/25/2024 15:43:26 Irregular periods 38674693 N92.6 Amenorrhea 94336899 N91. 2 unless progestero [place] [id number] Milan Stokes MD [place] [address],[place] [address] 06/30/2024 14:08:51 06/30/2024 16:16:52 screening 704615267 Z36.87 Z3A.01 [id number] Milan Stokes MD [place] [address],[place] [address] 1 07/07/2024 09:00:28 07/07/2024 10:00:05 Twins with discordant growth 900084255 O36.5999 Z3A.01 [id number] Milan Stokes MD [place] [address],[place] [address] 1 07/13/2024 12:17:59 07/13/2024 13:56:30 [id number] Milan Stokes MD [place] [address],[place] [address] 1 07/19/2024 13:22:48 07/19/2024 14:01:41 Threatened miscarriage 76994770 O20.0 O31.10X9 Z3A.09 [id number] Yulissa Rudolph CNM [place] [address],[place] [address] 07/20/2024 13:55:34 07/20/2024 14:53:12 Venereal disease screening 164452724 Z11.3 Vanishing twin syndrome 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 devries inue vitamin Gestation period, 9 weeks 148206 Z3A.09 [id number] Milan Stokes MD [place] [address],[place] [address] 08/09/2024 11:59:04 08/09/2024 12:49:51 screening 120589437 Z36.82 Z3A.12 [id number] [facility] [address],[place] [address] 1 08/19/2024 10:49:04 08/19/2024 14:19:22 Routine care 172383819 Z34.93 Gestation period, 13 weeks 13561297 Z3A.13 [id number] Milan Stokes MD [place] [address],[place] [address] 1 09/02/2024 16:15:59 09/05/2024 06:42:48 Medical examination for suspected condition 876811054 Z03.75 Z3A.15 [id number] [facility] [address],[place] [address] 1 09/02/2024 16:16:16 09/05/2024 01:34:02 Gestation period, 15 weeks 2500686 Z3A.15 Short cerv ical length in 287622034 O26.879 [id number] Milan Stokes MD [place] [address],[place] [address] 09/30/2024 15:46:29 10/03/2024 08:55:07 screening for malformation 385221426 Z36.3 Z3A.19 [id number] [facility] [address],[place] [address] 1 09/30/2024 15:50:08 10/03/2024 07:26:59 Gestation period, 20 weeks 69004374 Z3A.20 continue vitamin [id number] Milan Stokes MD [place] [address],[place] [address] 1 10/26/2024 14:16:40 10/26/2024 15:34:50 anatomy study 151573284 Z36.2 O43.112 Z3A.23 [id number] [facility] [address],[place] [address] 10/26/2024 14:17:04 10/28/2024 03:36:40 Gestation period, 23 weeks 52829665 Z3A.23 [id number] Milan Stokes MD [place] [address],[place] [address] 1 11/23/2024 15:45:47 11/23/2024 16:58:37 Follow-up encounter 414269816 Z36.2 anatomy study 2714 10704 Z36.2 Z3A.27 [id number] [facility] [address],[place] [address] 1 11/23/2024 15:47:01 11/23/2024 16:21:42 Gestation period, 27 weeks 92459076 Z3A.27 Past pregn dominic history of premature delivery 604519013 Z87.51 [id number] [facility] [address],[place] [address] 12/09/2024 15:20:26 12/09/2024 16:02:07 Gestation period, 29 weeks 72994594 Z3A.29 cont pnv [id number] [facility] [address],[place] [address] 1 12/23/2024 16:35:45 12/25/2024 22:01:23 Gestation period, 31 weeks 62943640 Z3A.31 cont pnv [id number] Milan Stokes MD [place] [address],[place] [address] 01/04/2025 15:20:13 01/04/2025 16:14:12 Placenta circumvallata 8309448 O43.113 O36.63X0 Z3A.33 [id number] Yulissa Rudolph [facility] [address],[place] [address] 1 01/04/2025 15:20:46 01/04/2025 16:14:06 Gestation period, 33 weeks 58872944 Z3A.33 s ection following previous section 276800783 O34.219 [id number] Milan Stokes MD [place] [address],[place] [address] 1 01/20/2025 15:20:12 01/20/2025 15:54:50 care status 454750010 Z34.83 [id number] [facility] [address],[place] [address] 1 01/25/2025 16:25:12 01/25/2025 16:44:53 Gestation period, 36 weeks 07345360 Z3A.36 [id number] [facility] [address],[place] [address] 1 01/27/2025 09:50:47 01/27/2025 12:04:23 Pre-eclampsia 530438952 O14.93 [id number] [facility] [address],[place] [address] 01/27/2025 09:51:05 01/27/2025 16:58:50 Gestation period, 36 weeks 39074020 Z3A.36 Pre-eclampsia 958442883 O14.93 Health Concerns Section Related Observation LastModified by Organization Detai ls LastModified Time None Recorded Concern Status LastModified by Organization Details LastModified Time None Recorded Advance Directives Directive N: Payers Insurance Date Sequence Insurance Name Policy Number Policy Fagan Covered Member ID Fagan Member ID Guarantor Name 01/28/2025 1 [employer] BETTER [facility] OF [facility] ON OR AFTER 06/05/2020 (MEDICAID REPLACEMENT - HMO) Gabby Holt [id number] Gabby Holt 08/08/2024 1 [place] [id number] Jordin Holt [id number] Gabby Holt 08/17/2024 1 *SELF PAY* Sukhwinder Holt 01/28/2025 1 [place] Gabby Holt [id number] Gabby Holt 01/28/2025 1 [facility] [place] - DOS ON OR AFTER 21 (MEDICAID REPLACEMENT - HMO) Gabby Holt [id number] Gabby Holt 01/28/2025 2 [employer] AFTER 2020 ([place] REPLACEMENT - HMO) Gabby Holt [id number] Gabby Holt 01/28/2025 2 [place] AFTER 2020 ([place] RE[place]AC[place] - HMO) Gabby Holt [id number] Gabby Holt 02/11/2023 1 [place] [id number] Jordin Holt [id number] Gabby Holt 04/01/2024 1 *SELF PAY* Sukhwinder Holt 02/11/2023 1 [place] [id number] Jordin Holt [id number] Gabby Holt 06/30/2024 1 [place] [id number] Jordin Holt [id number] Gabby Holt 01/28/2025 1 [place] Gabby Holt [id number] Gabby Holt 01/12/2025 2 [employer]ET[employer] ([place]) [id number] Jordin Holt [id number] Gabby Holt 04/15/2023 PAYMENT PLAN Gabby Holt 10/02/2023 1 *SELF PAY* Sukhwinder Holt 01/28/2025 1 [employer] ON [place] AFTER 2020 (MEDICAID REPLACEMENT - HMO) Gabby Holt [id number] Gabby Holt Notes Date Note Type Note Provider Name and Address Organization Details Recorded Time 01/04/2025 text/html Generic HPI TemplateReported by Patient Yulissa Rudolph CNM [address], [place], [address], [facility] 01/04/2025 16:13:02 01/20/2025 text/html Generic HPI TemplateReported by Patient Milan Stokes MD [address], [place], [address], [facility] 01/20/2025 15:54:26 01/25/2025 text/html Generic HPI TemplateReported by Patient Yulissa Rudolph CNM [address], [place], [address], [facility] 01/25/2025 16:44:27 01/27/2025 text/html Generic HPI TemplateReported by Patient Yulissa Rudolph CNM [address], [place], [address], [facility] 01/27/2025 16:42:25 OBGyn Episode Ob Episode Information Episode Created Date Number of Fetuses Patient Bloodtype Patient rh Status Prepregnancy Weight lbs Domestic Partner Domestic Partner Phone Father Name Bicycle I Assembler Status 11/03/19 20 2 O Positive 171 [...] Not e Marginal insertion of umbilical cord 06687036 SERIAL GROWTH U/S Dichorionic diamniotic twin 644336022 SERIAL GROWTH U/S Jerry Calculation Initial Jerry [...] Gestation 0 [email or web address] 11/03/2019 03/21/20 20 0 Pre-sebastian Flowsheet Flowsheet Date 11/03/2019 Becerra Score Blood Edema Fundus Height Fundus Units Glucose Ketones Leukocytes Nitrite Labor Signs Protein Cervic Dilation Cervic Effacement Cervic Station 25 trace Type Weight in lbs Pre/Post Dialysis Refused Weight 194.249250702250 BP Diastolic BP Location Tested BP Systolic [...] Weight in lbs Pre/Post Dialysis Refused Weight 205.099915260623 BP Diastolic BP Location Tested BP Systolic [...] Weight in lbs Pre/Post Dialysis Refused Weight 214.102845141567 BP Diastolic BP Location Tested BP Systolic [...] Weight in lbs Pre/Post Dialysis Refused Weight 198.763244708077 BP Diastolic BP Location Tested BP Systolic BP Type 95 157 94 159 Fetus Heart Rate Present Fetus Movement Comments Flowsheet Date 01/26/2020 Becerra Score Blood Edema Fundus Height Fundus Units Glucose Ketones Leukocytes Nitrite Labor Signs Protein Cervic Dilation Cervic Effacement Cervic Station Type Weight in lbs Pre/Post Dialysis Refused Weight 180.044302184798 BP Diastolic BP Location Tested BP Systolic BP Type 77 123 Fetus Heart Rate Present Fetus Movement Comments Flowsheet Date 08/15/2020 Becerra Score Blood Edema Fundus Height Fundus Units Glucose Ketones Leukocytes Nitrite Labor Signs Protein Cervic Dilation Cervic Effacement Cervic Station Type Weight in lbs Pre/Post Dialysis Refused Weight 175.598875977234 BP Diastolic BP Location Tested BP Systolic [...] Estim ated Date of Delivery false Thalassemia (Persian, Pashto, Mediterranean, Or Background): MCV < 80 false Neural Tube Defect (Meningomyelocele, Spina Bifi da, Or Anencephaly) false Congenital Heart Defect false Down Syndrome false Man-Sachs (eg, Mandaeism, Cajun, Cymro-Malagasy) f alse Elisa Disease false Sickle Cell Disease Or Trait () false Hemophilia Or Other Blood Disorders false Muscular Dystrophy false Cystic Fibrosis false [place]'s Chorea false Intellectual Disability/Autism false If Yes, [...] Domestic Partner Domestic Partner Phone Father Name Bicycle I Assembler Status 09/18/19 1 O Positive 208 CLOSED Fetus Data First Name Last Name Admitted to NICU Weight (g) Sex Living Outcome Pediatric Complications Fetus ID Race Codes Race Delivery Type 4518.91 03 M true Full Term [id number] Repeat Problems Problem Notes conceived using letrozole Problem Name Start Date End Date Resolution Snomed Code Not e Group B Streptococcus carrier 0932894537779 bacteriuria Past history of section 09/17/2022 380271463 for twins and c ord prolapse, in [place], desires TOLAC Past history of premature delivery 09/17/2022 148294587 twins, 30w Short cervical length in 568423285 Level II schd i n [facility] on 11/24 @ 0815 - vaginal progesterone until delivery Large for gestation age fetus 993951760 98% - possible c/s scheduled 39 wks [...] Date Ultra Sound Latest Days Gestation 0 [email or web address] 09/17/2022 03/28/20 23 0 Pre-sebastian Flowsheet Flowsheet Date 09/17/2022 Becerra Score Blood Edema Fundus Height Fundus Units Glucose Ketones Leukocytes Nitrite Labor Signs Protein Cervic Dilation Cervic Effacement Cervic Station neg none none trace Type Weight in lbs Pre/Post Dialysis Refused Weight 208.189087016354 BP Diastolic BP Location Tested BP Systolic BP Type 66 112 Fetus Heart Rate Present A 165 Fetus Movement A No Comments Gabby is a 27yo at 12.4 for care. Her last was complicated by a twin delivery at 30w by CS for PROM and cord prolapse. She delivered in [place], where she was closest to when it [...] Weight in lbs Pre/Post Dialysis Refused Weight 211.479732993524 BP Diastolic BP Location Tested BP Systolic [...] Weight in lbs Pre/Post Dialysis Refused Weight 216.863884937317 BP Diastolic BP Location Tested BP Systolic [...] Weight in lbs Pre/Post Dialysis Refused Weight 221.206593339602 BP Diastolic BP Location Tested BP Systolic BP Type 79 124 Fetus Heart Rate Present A 156 Fetus Movement A Yes Comments patient states that having s ome discharge. LIZZYM released, on progesterone supp, doing well, denies [...] Weight in lbs Pre/Post Dialysis Refused Weight 224.259281145445 BP Diastolic BP Location Tested BP Systolic BP Type 78 127 Fetus Heart Rate Present Fetus Movement A Yes Comments patient states that having s ome BH contractions. PTL precautions, still on progesterone, will see how long they want her take it. RN to call Geronimo, EFW 92%, GCT today f/u 2 weeks Flowsheet Date 01/23/2023 Becerra Score Blood Edema Fundus Height Fundus Units Glucose Ketones Leukocytes Nitrite Labor Signs Protein Cervic Dilation Cervic Effacement Cervic Station neg none none trace Type Weight in lbs Pre/Post Dialysis Refused Weight 225.170231142227 BP Diastolic BP Location Tested BP Systolic [...] Weight in lbs Pre/Post Dialysis Refused Weight 226.144284185029 BP Diastolic BP Location Tested BP Systolic [...] Weight in lbs Pre/Post Dialysis Refused Weight 227.261875616492 BP Diastolic BP Location Tested BP Systolic [...] Weight in lbs Pre/Post Dialysis Refused Weight 227.942778139121 BP Diastolic BP Location Tested BP Systolic [...] Weight in lbs Pre/Post Dialysis Refused Weight 228.503284144823 BP Diastolic BP Location Tested BP Systolic [...] Weight in lbs Pre/Post Dialysis Refused Weight 229.122322479826 BP Diastolic BP Location Tested BP Systolic [...] Weight in lbs Pre/Post Dialysis Refused Weight 226.501759470808 BP Diastolic BP Location Tested BP Systolic [...] Weight in lbs Pre/Post Dialysis Refused Weight 225.923184076255 BP Diastolic BP Location Tested BP Systolic [...] Weight in lbs Pre/Post Dialysis Refused Weight 229.846047027730 BP Diastolic BP Location Tested BP Systolic [...] Estim ated Date of Delivery false Thalassemia (Persian, Pashto, Mediterranean, Or Background): MCV < 80 false Neural Tube Defect (Meningomyelocele, Spina Bifi da, Or Anencephaly) false Congenital Heart Defect false Down Syndrome false Man-Sachs (eg, Mandaeism, Cajun, Cymro-Malagasy) f alse Elisa Disease false Sickle Cell Disease Or Trait () false Hemophilia Or Other Blood Disorders false Muscular Dystrophy false Cystic Fibrosis false [place]'s Chorea false Intellectual Disability/Autism false If Yes, [...] Domestic Partner Domestic Partner Phone Father Name Bicycle I Assembler Status 08/19/19 25 1 O Positive 199 Jordin sims OPEN Fetus Data First Name Last Name Admitted to NICU Weight (g) Sex Living Outcome Pediatric Complications Fetus ID Race Codes Race Delivery Type [id number] Problems Problem Notes + GBS Problem Name Start Date End Date Resolution Snomed Code Not e Past history of premature delivery 938408796 cord p rolapse, twins 2019 Large for gestation age fetus 062557941 in 20 23 Past history of section 988499141 x 2 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 8159874 apoorva @ 32wks Jerry Calculation Initial Jerry Date Initial Exam Date Initial Exam Provider Initial Ultrasound Date Last Menstrual Period Date Ultra Sound Weeks Gestation 02/18/2025 07/07/2024 Yulissa Rudolph 07/07/2024 05/14/2024 7 Eighteen To Twenty Week [...] Weight in lbs Pre/Post Dialysis Refused Weight 204.149906242928 BP Diastolic BP Location Tested BP Systolic [...] Type Weight in lbs Pre/Post Dialysis Refused 203.25017223930 BP Diastolic BP Location Tested BP Systolic [...] Type Weight in lbs Pre/Post Dialysis Refused 211.418023284711 BP Diastolic BP Location Tested BP Systolic [...] Type Weight in lbs Pre/Post Dialysis Refused 215.396712827899 BP Diastolic BP Location Tested BP Systolic [...] Type Weight in lbs Pre/Post Dialysis Refused 218.855284526212 BP Diastolic BP Location Tested BP Systolic [...] Weight in lbs Pre/Post Dialysis Refused Weight 219.510061414371 BP Diastolic BP Location Tested BP Systolic [...] Weight in lbs Pre/Post Dialysis Refused Weight 221.225788667811 BP Diastolic BP Location Tested BP Systolic [...] Type Weight in lbs Pre/Post Dialysis Refused 223.499314851646 BP Diastolic BP Location Tested BP Systolic [...] Weight in lbs Pre/Post Dialysis Refused Weight 220.464884308876 BP Diastolic BP Location Tested BP Systolic [...] Weight in lbs Pre/Post Dialysis Refused Weight 220.607513711725 BP Diastolic BP Location Tested BP Systolic [...] Type Weight in lbs Pre/Post Dialysis Refused 220.233849125669 BP Diastolic BP Location Tested BP Systolic BP Type 87 L arm 143 sitting Fetus Heart Rate Present Fetus Movement Comments NST R, discussed with pt to ld for evaluation Flowsheet Date 01/27/2025 Becerra Score Blood Edema Fundus Height Fundus Units Glucose Ketones Leukocytes Nitrite Labor Signs Protein Cervic Dilation Cervic Effacement Cervic Station Type Weight in lbs Pre/Post Dialysis Refused Weight 220.858800547769 BP Diastolic BP Location Tested BP Systolic [...]
--- OUTSIDE RECORDS SUMMARY | 2025-01-29 08:29 | XMS_ITS | Encounter Summary ---
Author Organization [facility] Address [address] [place] [address] Care Team Providers Care Farm Machinery Mechanic Name Role Phone None, Provider Primary Care Provider Unavaila ble Encounter Details Date Type Department Care Team (Late st Contact Info) Description 01/15/2021 [employer] [facility] [address] [place] [address] Macie Tracy, [facility] [address] [place] [address] Visit Follow Up Social History Tobacco Use Types Packs/Day Years Used Date Smoking Tobacco: Never Smokeless Tobacco: Never Alcohol Use Standard Drinks/Week Comments Not Currently 0 (1 standard drink = 0.6 oz pur e alcohol) Comments No Sex and Gender Information Value Date Recorded Sex Assigned at Not on file Legal Sex Female 9:08 PM CLAIMS SUPPORT SPECIALIST Gender Identity Not on file Sexual Orientation [...] on filedocumented in this encounter Care Teams Farm Machinery Mechanic Relationship Specialty Start Date End Date None, Provider, PCP - General 01/11/20 documented as of this encounter
--- OUTSIDE RECORDS SUMMARY | 2025-01-29 08:29 | XMS_ITS | Clinical Summary ---
Author Organization [facility] Address [address] [place] [address] Care Team Providers Care Fish Farm Laborer Name Role Phone Unavailable Primary Care Provider Unavailabl e Source Comments [facility],non-owned Affiliates and Associated Physician Practices is amultiple site organization consisting of ambulatory clinics and hospital sitesin [place], [place], [place] and [place]. This disclosure is being madepursuant to the Care Everywhere program and may not contain all information available regarding this patient. Last updated 18.[facility] Allergies No known active allergies Medications * Be aware that medications may not be up to date on this document. Alwaysverify current medications with the patient. Prenat w/o C-VzLoXh-NXO-FA -DHA (PNV OB+DHA) 27-1 & 250 MG [...] and heating? Not hard at all 11/24/2022 [facility] [place] [facility] - Occupational Stress [...] place to sleep or slept in a correction (including now)? No 11/24/2022 Holland Depression Scale Answer Date Recorded Holland Depression Scale Total 5 11/24/2022 The thought [...]
--- OUTSIDE RECORDS SUMMARY | 2025-01-29 08:29 | XMS_ITS | Clinical Summary ---
Author Organization [facility] Address [address] [place] [address] Care Team Providers Care Welder Gun Name Role Phone None, Provider MD Primary [...] on file Legal Sex Female 9:08 PM PARTS CHASER Gender Identity Not on file Sexual Orientation [...] patient's age to complete this topic Insurance [facility] Advance Directives * Full Code (Latest Code Status on File) Date Activated Date Inactivated Comments 01/11/2020 7:45 PM 01/15/2020 4:22 PM Care Teams Welder Gun Relationship Specialty Start Date End Date None, Provider, PCP - General 01/11/20
--- OUTSIDE RECORDS SUMMARY | 2025-01-29 08:29 | XMS_ITS | Referral Summary ---
Author Organization [facility] Address [address] [place] [address] Care Team Providers Care Experimental Physicist Name Role Phone Yulissa Rudolph NP Primary Care Provider + [phone] Allergies No known active allergies Medications WJE30-ugmn cb,ds-ffeia-aqj- dha 27-150-250 mg combo pack Take by mouth Active [...] CDT Gender Identity Female 07/01/2019 6:12 PM CANE FEEDER Sexual Orientation Straight 07/01/2019 6: 12 PM CANE FEEDER Last Filed Vital Signs Vital Sign Reading Time Taken Comments Blood Pressure 123/70 08/02/2019 1:01 PM CANE FEEDER Pulse 68 08/02/2019 1:01 PM CANE FEEDER Temperature - - Respiratory Rate - - Oxygen Saturation - - Inhaled Oxygen Concentration - - Weight 76.7 kg (169 lb) 08/02/2019 1:01 PM CANE FEEDER Height 175.3 cm (5' 9) 08/02/2019 1:01 PM CANE FEEDER Body Mass Index 24.96 08/02/2019 1:01 PM CANE FEEDER Plan of Treatment Not on file Insurance [facility] Care Teams Experimental Physicist Relationship Specialty Start Date End Date Yulissa Rudolph NP PCP - General Obstetrics and Gynecology 01/19/19
[2025-01-29 08:53] LABS: Hematocrit 37.0 % (37.0-47.0); Hemoglobin 12.5 g/dL (12.0-15.0); Immature Granulocyte Percent A 0.5 % (0-0.5); Immature Platelet Fraction Pct 4.6 % (0.9-11.2); Lymphocytes Absolute Auto 1.53 K/mm3 (0.9-3.2); Mean Corpuscular HGB Conc 33.8 g/dl (32-36); Mean Corpuscular Hemoglobin 29.2 pg (26-34); Mean Corpuscular Volume 86.4 fl (80-100); Nucleated Red Blood Cells Absolute Auto 0.000 K/mm3 (0.0-0.012); Nucleated Red Blood Cells Perc 0.0 % (0.0-0.2); Platelet Count Result 219 k/mm3 (150-375); Red Blood Count 4.28 M/mm3 (4.2-5.4); White Blood Count 7.9 K/mm3 (4.5-10.0)
[2025-01-29 09:48] LABS: Syphilis IgG/IgM Antibody Non-Reactive (Nonreactive)
== END 2025-01-29 08:24 | disposition home or self-care (01) ==
LOC: ANHOBOP 08:27
PROVIDERS: Visit Provider Obstetrics & Gynecology
DX: Z01.818 Encounter for other preprocedural examination (principal)
CPT/HCPCS: 36415; 85025; 85055; 86593; 86850; 86900; 86901

== ENCOUNTER 2025-01-30 07:42 | Inpatient (IN) | payer OTHER, SELFPAY ==
[2025-01-30] VITALS (45 sets, daily range): BP systolic 100–131; BP diastolic 54–77; PULSE 50–118; RESP 16–18; TEMP 36.3–37.2; O2SAT 96–100; BMI 32.5
--- OUTSIDE RECORDS SUMMARY | 2025-01-30 07:47 | XMS_ITS | Clinical Summary ---
Author Organization [facility] Address [address] [place] [address] Care Team Providers Care Miscellaneous Machine Operator Name Role Phone None, Provider MD Primary [...] on file Legal Sex Female 9:08 PM RACK CLEANER Gender Identity Not on file Sexual Orientation [...] 7:45 PM 01/15/2020 4:22 PM Care Teams Miscellaneous Machine Operator Relationship Specialty Start Date End Date None, Provider, PCP - General 01/11/20
--- OUTSIDE RECORDS SUMMARY | 2025-01-30 07:47 | XMS_ITS | Clinical Summary ---
Author Organization [facility] Address [address] [place] [address] Care Team Providers Care Boiler Inspector Name Role Phone Yulissa Rudolph NP Primary Care Provider + [phone] Allergies No known active allergies Medications [id number]-vmwh cb,xd-jpgsp-drk- dha 27-1-50-250 mg combo pack Take by [...] CDT Gender Identity Female 07/01/2019 6:12 PM DIGITIZER Sexual Orientation Straight 07/01/2019 6: 12 PM DIGITIZER Obstetrics History Para Term AB IAB SAB Ectopic Multiple Livin g Live Births 1 0 0 0 0 0 0 0 0 0 0 Date Outcome GA Total Labor Labor/2nd/3rd Weight Sex Type Anes PTL Josefina A1 A5 Name Clin Last Filed Vital Signs Vital Sign Reading Time Taken Comments Blood Pressure 123/70 08/02/2019 1:01 PM DIGITIZER Pulse 68 08/02/2019 1:01 PM DIGITIZER Temperature - - Respiratory Rate - - Oxygen Saturation - - Inhaled Oxygen Concentration - - Weight 76.7 kg (169 lb) 08/02/2019 1:01 PM DIGITIZER Height 175.3 cm (5' 9) 08/02/2019 1:01 PM DIGITIZER Body Mass Index 24.96 08/02/2019 1:01 PM DIGITIZER Plan of Treatment Not on file Insurance [employer] Care Teams Boiler Inspector Relationship Specialty Start Date End Date Yulissa Rudolph NP PCP - General Obstetrics and Gynecology 01/19/19
--- OUTSIDE RECORDS SUMMARY | 2025-01-30 07:47 | XMS_ITS | Encounter Summary ---
Author Organization [facility] Address [address] [place] [address] Care Team Providers Care Personnel Records Clerk Name Role Phone None, Provider Primary Care Provider Unavaila ble Encounter Details Date Type Department Care Team (Late st Contact Info) Description 01/15/2021 AutoSpot Message Enc [facility] [address] [place] [address] Macie Tracy, [facility]- [address] [place] [address] Visit Follow Up Social History Tobacco Use Types Packs/Day Years Used Date Smoking Tobacco: Never Smokeless Tobacco: Never Alcohol Use Standard Drinks/Week Comments Not Currently 0 (1 standard drink = 0.6 oz pur e alcohol) Comments No Sex and Gender Information Value Date Recorded Sex Assigned at Not on file Legal Sex Female 9:08 PM EHS SPECIALIST Gender Identity Not on file Sexual [...] on filedocumented in this encounter Care Teams Personnel Records Clerk Relationship Specialty Start Date End Date None, Provider, PCP - General 01/11/20 documented as of this encounter
--- OUTSIDE RECORDS SUMMARY | 2025-01-30 07:47 | XMS_ITS | Clinical Summary ---
Author Organization [facility] [employer] Address [address] [place] [address] Care Team Providers Care Pearler Name Role Phone Unavailable Primary Care Provider Unavailabl e Source Comments [facility] [employer],non-owned Affiliates and Associated Physician Practices is amultiple site organization consisting of ambulatory clinics and hospital sitesin [place], [place], [place] and [place]. This disclosure is being madepursuant to the Care Everywhere program and may not contain all information available regarding this patient. Last updated 18.[facility] [employer] Allergies No known active allergies Medications * Be aware that medications may not be up to date on this document. Alwaysverify current medications with the patient. Prenat w/o H-PeOoQq-EOI-FA -DHA (PNV OB+DHA) 27-1 & 250 MG [...] and heating? Not hard at all 11/24/2022 [place] [place] [facility] [employer] - Occupational Stress [...] place to sleep or slept in a penitentiary (including now)? No 11/24/2022 [place] Depression Scale Answer Date Recorded [place] Depression Scale Total 5 11/24/2022 The thought [...]
--- OUTSIDE RECORDS SUMMARY | 2025-01-30 07:47 | XMS_ITS | Encounter Summary ---
Author Organization [facility] Address [address] [place] [address] Phone Care Team Providers Care Crop Grain Or Livestock Farm Manager Name Role Phone Yulissa Rudolph NP Primary Care Provider + [phone] Encounter Details Date Type Department Care Team (Late st Contact Info) Description 06/06/2019 Orders Only [facility] [address] [address] Brianna De Leon MD [address] [address] Encounter for fertility testing (Primary [...] CDT Gender Identity Female 07/01/2019 6:12 PM MEDICAL RECORDS TECHNICIAN Sexual Orientation Straight 07/01/2019 6: 12 PM MEDICAL RECORDS TECHNICIAN documented as of this encounter Plan of Treatment Not on file documented as of this encounter Procedures Procedure Name Priority Date/Time Associated Diagnosis Comments PROGESTERONE Routine 06/08/2019 9:17 AM MEDICAL RECORDS TECHNICIAN Encounter for fertility testing documented in this encounter Results * Progesterone (06/08/2019 9:17 AM MEDICAL RECORDS TECHNICIAN) Progesterone 28.2 ng/mL [facility] - 01 Comment: Follicular phase 0.1 - 0.9 Luteal phase 1.8 - 23.9 Ovulation phase 0.1 - 12.0 First trimester 11.0 - 44.3 Second trimester 25.4 - 83.3 Third trimester 58.7 - 214.0 Postmenopausal 0.0 - 0.1 Blood specimen (specimen) 06/08/2019 9:17 AM MEDICAL RECORDS TECHNICIAN 06/08/2019 Narrative [facility] - 06/09/2019 6:08 AM MEDICAL RECORDS TECHNICIAN Performed at: - [facility] [address] [id number] Sat Tutor: Kirt Harman PhD, Phone: [phone] us Brianna De Leon MD LAB BLOOD ORDERABLES Final R esult [facility] - 01 documented in this encounter Visit Diagnoses Diagnosis Encounter for fertility testing- Primary Encounter for other procreative management documented in this encounter Care Teams Crop Grain Or Livestock Farm Manager Relationship Specialty Start Date End Date Yulissa Rudolph NP PCP - General Obstetrics and Gynecology 01/19/19 documented as of this encounter
--- OUTSIDE RECORDS SUMMARY | 2025-01-30 07:47 | XMS_ITS | Referral Summary ---
Author Organization [facility] Address [address] [place] [address] Care Team Providers Care Bone Glue Maker Name Role Phone Yulissa Rudolph NP Primary Care Provider + [phone] Allergies No known active allergies Medications CPZ15-vtcq cb,gp-bynws-ycg- dha 27-1-50-250 mg combo pack Take by [...] CDT Gender Identity Female 07/01/2019 6:12 PM CLOTH HANDLER Sexual Orientation Straight 07/01/2019 6: 12 PM CLOTH HANDLER Last Filed Vital Signs Vital Sign Reading Time Taken Comments Blood Pressure 123/70 08/02/2019 1:01 PM CLOTH HANDLER Pulse 68 08/02/2019 1:01 PM CLOTH HANDLER Temperature - - Respiratory Rate - - Oxygen Saturation - - Inhaled Oxygen Concentration - - Weight 76.7 kg (169 lb) 08/02/2019 1:01 PM CLOTH HANDLER Height 175.3 cm (5' 9) 08/02/2019 1:01 PM CLOTH HANDLER Body Mass Index 24.96 08/02/2019 1:01 PM CLOTH HANDLER Plan of Treatment Not on file Insurance [facility] Care Teams Bone Glue Maker Relationship Specialty Start Date End Date Yulissa Rudolph NP PCP - General Obstetrics and Gynecology 01/19/19
[2025-01-30] MEDS: LACTATED RINGERS 250 ML 999 ML IVPB (08:00)
[2025-01-30 08:27] LABS: Hematocrit 35.3 % (37.0-47.0); Hemoglobin 12.0 g/dL (12.0-15.0); Immature Granulocyte Percent A 0.3 % (0-0.5); Lymphocytes Absolute Auto 1.56 K/mm3 (0.9-3.2); Mean Corpuscular HGB Conc 34.0 g/dl (32-36); Mean Corpuscular Hemoglobin 28.9 pg (26-34); Mean Corpuscular Volume 85.1 fl (80-100); Nucleated Red Blood Cells Absolute Auto 0.000 K/mm3 (0.0-0.012); Nucleated Red Blood Cells Perc 0.0 % (0.0-0.2); Platelet Count Result 223 k/mm3 (150-375); Red Blood Count 4.15 M/mm3 (4.2-5.4); White Blood Count 9.1 K/mm3 (4.5-10.0)
--- NOTE | 2025-01-30 08:29 | LDADM ---
This patient, Gabby Holt, was admitted to Labor/Delivery/Recovery 120 on 01/30/25 at 07:42. Plans for labor, pain management and were discussed with patient. Patient/family oriented to hospital policies and general routines including ID bracelet, bed and alarms, visiting hours, pain management, procedures, bathroom and other care routines, personal items, smoking policy, room service/diet and guest tray routines, security routines, and visiting hours. Patient/Family are encouraged to report perceived risks to care and to ask questions if they do not understand what they are told or what they should do. See OBIX for further documentation.
[2025-01-30] MEDS: ACETAMINOPHEN 500 MG TABLET 1000 MG PO ×3 (08:44→22:29)
[2025-01-30 08:48] LABS: Alanine Aminotransferase 16 U/L (6-35); Albumin Level 3.7 g/dL (3.5-5.1); Alkaline Phosphatase 93 U/L (38-126); Anion Gap 11 mmol/L (4-12); Aspartate Amino Transferase 36 U/L (14-36); Bilirubin,Total 0.3 mg/dL (0.2-1.3); Blood Urea Nitrogen 4 mg/dL (7-17); Calcium 9.0 mg/dL (8.4-10.2); Carbon Dioxide 17 mmol/L (22-30); Chloride 107 mmol/L (98-107); Estimated CRCL calculation 182 ml/min; Estimated Glomerular Filt Rate > 60; Glucose 155 mg/dL (65-110); Potassium 3.5 mmol/L (3.4-5.0); Sodium 135 mmol/L (137-145); Total Protein 7.1 g/dL (6.3-8.2)
[2025-01-30 09:15] LABS: Syphilis IgG/IgM Antibody Non-Reactive (Nonreactive)
--- NOTE | 2025-01-30 09:28 | P.PNAN_ITS ---
Anes - Initial Pre Proc Eval Procedure: Operation Date: 01/30/25 10:00 Proposed Procedures p Section - Milan Padron MD Date/Time: 01/30/25 09:28 Surgeon: Milan Padron MD Pre Op Diagnosis: Patient Data Age: 29 Gender: F Height: 1.75 m Weight: 100 kg Last Vital Signs Pulse 104 H 01/30/25 08:31 BP 120/71 01/30/25 08:31 O2 Del Method Room Air 01/30/25 08:27 Allergies Allergy/AdvReac Type Severity Reaction Status Date / Time No Known Allergies Allergy Verified 01/18/25 13:09 Home Medications ?Medication ?Instructions ?Recorded ?Confirmed ?Type prenat.vits,blanquita,mnf-wuuy-qvxxu 1 tablet PO DAILY 02/26/23 01/18/25 History Laboratory Tests 01/30/25 08:11 WBC 9.1 K/mm3 (4.5-10.0) RBC 4.15 L M/mm3 (4.2-5.4) Hgb 12.0 g/dL (12.0-15.0) Hct 35.3 L % (37.0-47.0) MCV 85.1 fl (80-100) MCH 28.9 pg (26-34) MCHC 34.0 g/dl (32-36) RDW 13.1 % (11.5-14.5) Plt Count 223 k/mm3 (150-375) MPV 9.5 fl (7.4-10.4) Immature Gran % (Auto) 0.3 % (0-0.5) Neut % (Auto) 78.2 H % (45.5-73.1) Lymph % (Auto) 17.1 L % (18.3-44.2) Hernando % (Auto) 4.0 % (2.6-8.5) Eos % (Auto) 0.2 % (0-4.4) Baso % (Auto) 0.2 % (0.2-1.2) Lymph # (Auto) 1.56 K/mm3 (0.9-3.2) Hernando # (Auto) 0.4 K/mm3 (0.1-0.6) Eos # (Auto) 0.0 K/mm3 (0-0.3) Baso # (Auto) 0.0 K/mm3 (0.0-0.1) Abs Immat Gran (auto) 0.03 K/mm3 (0.00-0.031) Absolute Neuts (auto) 7.1 H K/mm3 (1.3-6.7) Absolute Nucleated RBC 0.000 K/mm3 (0.0-0.012) Nucleated RBC % 0.0 % (0.0-0.2) Sodium 135 L mmol/L (137-145) Potassium 3.5 mmol/L (3.4-5.0) Chloride 107 mmol/L (98-107) Carbon Dioxide 17 L mmol/L (22-30) Anion Gap 11 mmol/L (4-12) BUN 4 L mg/dL (7-17) Creatinine 0.48 L mg/dL (0.7-1.0) Estim Creat Clear Calc 182 ml/min Estimated GFR > 60 (59 - ) Glucose 155 H mg/dL (65-110) Calcium 9.0 mg/dL (8.4-10.2) Total Bilirubin 0.3 mg/dL (0.2-1.3) AST 36 U/L (14-36) ALT 16 U/L (6-35) Alkaline Phosphatase 93 U/L (38-126) Total Protein 7.1 g/dL (6.3-8.2) Albumin 3.7 g/dL (3.5-5.1) Syphilis IgG/IgM Ab Non-reactive (Nonreactive) Patient hx anesthesia problems: none Family hx anesthesia problems: none Results Review: All pre-operative results and documents have been reviewed as part of the pre-operative evaluation. [facility] Surgical History Surgical History History of section Family History Family History Other Patient denies significant medical history Social History Social History Smoking status: Never smoker Second hand tobacco smoke exposure: No Substance use: never Do You Feel Safe in your Home?: Yes Lack of Transportation: No Lack of Food: Never True Current Housing: I Have Housing Concerned About Future Housing: No Difficulty Paying Gas/Electric Bills: No Difficulty Paying for Meds: No Currently Unemployed: No Education: High School Diploma/GED Difficulty w/ Childcare or Family Care: No Spiritual care concerns: No Anes - Eval Final PreProcedure Day of Procedure 01/30/25 09:28 Patient weight: obese Heart: regular rate and rhythm Lungs: clear to auscultation Airway: Mallampati scale class II Neurological: alert and oriented Last oral intake: >/= 8 hours ASA classification: III Emergent: no Anesthetic plan: proceed Anesthesia type and monitoring: regional spinal and standard monitoring Results Review: All pre-operative results and documents have been reviewed as part of the pre- operative evaluation. Informed Consent: The patient's anesthetic plan and its attendant risks and benefits were discussed with the patient/family/POA. Questions were solicited and answers provided to the satisfaction of the patient/family/POA.
[2025-01-30] MEDS: LACTATED RINGERS 1,000 ML 125 ML IV CONT (09:30)
[2025-01-30] MEDS: FAMOTIDINE 20 MG/2 ML VIAL IV PUSH (09:56)
[2025-01-30] MEDS: ONDANSETRON INJ 4 MG/2 ML VIAL IV PUSH (09:56)
--- NOTE | 2025-01-30 10:03 | PM.IMHP ---
H&P: HPI History of Present Illness Date/Time: 01/30/25 10:03 Chief Complaint: Term Narrative: 29-year-old multi with term and previous delivery. She presents for repeat agreed to proceed. She understands the risks, benefits, and alternatives reviewed she has completed the informed consent process and is ready to proceed. The patient understands the details of the procedure. The procedure has been explained in detail. She understands the risks. She understands that injuries may occur that result in hospitalization, more surgery, and severe illness. She understands risk of hemorrhage and infection. She denies any chest pain or shortness of breath. She denies any nausea, vomiting, fever, chills. Review of Systems Review of Systems: All systems reviewed & are unremarkable except as noted in HPI and below Constitutional: Constitutional: Denies chills, Denies fatigue, Denies fever(s) and Denies weakness Eyes: Eyes: Denies blurry vision, Denies change in vision, Denies loss of peripheral vision, Denies loss of vision, Denies other visual disturbances and Denies eye pain ENT: Denies vertigo, Denies dizziness, Denies hearing loss, Denies mouth pain, Denies nasal obstruction, Denies neck mass and Denies neck pain Cardiovascular: Cardiovascular: Denies chest pain, Denies diaphoresis, Denies syncope, Denies leg edema and Denies dyspnea Respiratory: Respiratory: Denies chest congestion, Denies cough, Denies hemoptysis, Denies dyspnea and Denies wheezing Gastrointestinal: Gastrointestinal: Denies abdominal pain, Denies constipation, Denies diarrhea, Denies nausea and Denies vomiting Genitourinary: Genitourinary: Denies hematuria, Denies change in libido, Denies nocturia, Denies genital lesions, Denies flank pain and Denies urinary urgency Musculoskeletal: Musculoskeletal: Denies abnormal gait, Denies back pain, Denies myalgias, Denies arthralgias, Denies joint swelling, Denies muscle weakness and Denies neck pain Integumentary/Breasts: Skin/Breast: Denies swelling, Denies breast pain, Denies breast mass, Denies dry skin, Denies nipple discharge, Denies unusual bruising and Denies jaundice Neurologic: Denies Neuro-related abnormal movements, Denies Abnormal speech present, Denies abnormal gait, Denies behavioral changes, Denies confusion, Denies vertigo, Denies dizziness, Denies syncope, Denies loss of vision, Denies memory loss, Denies convulsions and Denies weakness Psychiatric: Psychiatric: Denies abnormal sleep pattern, Denies behavioral changes, Denies change in libido, Denies confusion, Denies depression, Denies anhedonia and Denies memory loss Endocrine: Endocrine: Reports no additional endocrine complaints, Denies change in libido and Denies fatigue Hematologic/Lymphatic: Hematologic/Lymphatic: Reports no additional hematologic/lymphatic complaints Allergic/Immunologic: Allergic/Immunologic: Reports no additional allergic/immunologic complaints and Denies wheezing PMFSH Surgical History Surgical History (Reviewed 01/30/25 @ 09: by Quintin Sanders MD) History of section Family History Family History (Reviewed 01/30/25 @ : by Quintin Sanders MD) Other Patient denies significant medical history Social History Social History Smoking status: Never smoker Second hand tobacco smoke exposure: No Substance use: never Do You Feel Safe in your Home?: Yes Lack of Transportation: No Lack of Food: Never True Current Housing: I Have Housing Concerned About Future Housing: No Difficulty Paying Gas/Electric Bills: No Difficulty Paying for Meds: No Currently Unemployed: No Education: High School Diploma/GED Difficulty w/ Childcare or Family Care: No Spiritual care concerns: No Meds Home Medications and Allergies Home Medications ?Medication ?Instructions ?Recorded ?Confirmed ?Type prenat.vits,blanquita,pwr-otzm-hoxcy 1 tablet PO DAILY 02/26/23 01/18/25 History Allergies Allergy/AdvReac Type Severity Reaction Status Date / Time No Known Allergies Allergy Verified 01/18/25 13:09 Vital Signs Vital Signs - 24 hr 01/30/25 08:15 01/30/25 08:27 01/30/25 08:31 Pulse Rate 118 H 104 H Blood Pressure 119/75 120/71 Oxygen Delivery Room Air 01/30/25 09:31 Pulse Rate 102 H Blood Pressure 131/74 Oxygen Delivery Exam Const: General: cooperative, healthy appearing, comfortable and no acute distress Orientation/consciousness: oriented to person, oriented to place and oriented to time HENMT: Head: normal to inspection Ears: external ears normal Face/Nose/Sinus: Normal external nose present and normal facial exam Face and sinus: normal facial exam Eyes: General: appearance normal, both eyes and all related structures Neck: Neck: normal visual inspection, trachea midline and supple Resp: Auscultation: clear to auscultation bilaterally, no crackles, no rales, no rhonchi and no wheezes Cardio: Rate: regular rate Rhythm: regular rhythm Heart sounds: no click, no murmurs and no rubs GI: GI Palp: No abdominal tenderness, No Soft to palpation, No Tenderness to palpation present (GI) and No Palpable mass present Auscultation: normal bowel sounds Skin: General skin exam: normal color and no rashes or lesions noted Neuro: General: oriented to person, oriented to place and oriented to time Extrem: General: normal to inspection, no joint enlargement, no clubbing, cyanosis or edema, no pedal edema and no calf tenderness Psych: Appearance: grossly normal Mental Status: mental status grossly normal Speech and movement: Normal speech and movement present H&P: Results Labs Labs: Short CBC 01/30/25 Range/Units 08:11 WBC 9.1 (4.5-10.0) K/mm3 Hgb 12.0 (12.0-15.0) g/dL Hct 35.3 L (37.0-47.0) % Plt Count 223 (150-375) k/mm3 BMP 01/30/25 08:11 Sodium 135 L Potassium 3.5 Chloride 107 Carbon Dioxide 17 L BUN 4 L Creatinine 0.48 L Glucose 155 H Calcium 9.0 Liver Function 01/30/25 Range/Units 08:11 Total Bilirubin 0.3 (0.2-1.3) mg/dL AST 36 (14-36) U/L ALT 16 (6-35) U/L Alkaline Phosphatase 93 (38-126) U/L Albumin 3.7 (3.5-5.1) g/dL Assessment and Plan Assessment and plan (1) Previous delivery, delivered: Code(s): O34.219 - Maternal care for unspecified type scar from previous delivery Status: Acute Plan 29-year-old multi with term and previous delivery. She presents for repeat agreed to proceed. She understands the risks, benefits, and alternatives reviewed she has completed the informed consent process and is ready to proceed.
--- NOTE | 2025-01-30 10:05 | WPDHPUPDATE1 ---
History and Physical Update Update Date/Time: 01/30/25 10:05 History and Physical has been reviewed, including an updated exam of the patient. There are NO changes in the patient's condition. Risks, benefits, and alternatives have been discussed and questions answered. Patient agrees to proceed with procedure.
--- NOTE | 2025-01-30 11:15 | W.PM.OBCSD ---
OB - Delivery Note Procedure Delivery date: 01/30/25 Pre-op diagnosis: Previous Delivery Post-op Diagnosis: Same Procedure Performed: Repeat Surgeon: Milan Padron MD Anesthesia type: Spinal Description of Procedure/Findings: The patient was taken the operating room.? She was prepped and draped in dorsal supine position with a leftward tilt.? This was done after spinal anesthetic was applied.? A low-transverse skin incision was made and carried down till of the fascia with the knife.? The fascial incision was made with the knife.? The fascial incision was extended laterally with Parr scissors.? The fascia was tented upward superiorly and inferiorly the rectus muscles were dissected off bluntly.? The rectus muscles were the midline.? The preperitoneal fat and peritoneum were dissected open bluntly at the superior aspect of the rectus muscles.? The peritoneal incision was extended superior and inferior with good position of bladder.? The uterine incision was made with a scalpel down to the level of the amniotic cavity.? The amniotic cavity was entered bluntly.? The infant was delivered.? The cord was clamped and cut and the infant was handed off to waiting pediatric staff.? Cord bloods were obtained.? The placenta was removed manually.? The uterus was exteriorized.? The uterus was cleared of all clots, debris and membranes.? The uterus was closed in 0 Vicryl running lock fashion.? An imbricating over a was placed along the incision line as well.? The uterus was returned to the abdomen.? The gutters were cleared of all clots and debris.? The fascia was closed with 0 Vicryl running fashion.? The subcutaneous tissue was irrigated pinpoint bleeders were cauterized.? The skin was closed with subcuticular absorbable keisha.? The skin incision line was covered with glue.? The patient tolerated the procedure well.? She has taken recovery room in stable condition.? Sponge lap and needle counts were correct x2.? Pathology: None sent Complications: No immediate complications Condition: Stable Disposition: Floor
--- NOTE | 2025-01-30 14:15 | PC.NURSE ---
Patient transferred to post room #285 via stretcher. Support person present. Oriented to unit, room, information board, rooming in, admission packet and security measures. Patient verbalizes understanding.
[2025-01-30] MEDS: DEXTROSE 5%/0.45% SOD CHL 1,000 ML 125 ML IV CONT (16:45)
[2025-01-30] MEDS: KETOROLAC 15 MG/ML VIAL (*BKC) IV PUSH ×2 (16:47→22:28)
[2025-01-30] MEDS: LIDOCAINE 5% PATCH 1 PATCH TRANSDERM (16:50)
[2025-01-30] MEDS: SIMETHICONE 80 MG TAB.CHEW PO (16:50)
[2025-01-30] MEDS: DOCUSATE SODIUM 100 MG CAPSULE PO (16:50)
[2025-01-31 04:40] VITALS: BP 114/77; PULSE 75; RESP 18; TEMP 36.6; O2SAT 96
[2025-01-31 05:00] LABS: Hematocrit 32.8 % (37.0-47.0); Hemoglobin 11.3 g/dL (12.0-15.0); Immature Granulocyte Percent A 0.3 % (0-0.5); Lymphocytes Absolute Auto 1.44 K/mm3 (0.9-3.2); Mean Corpuscular HGB Conc 34.5 g/dl (32-36); Mean Corpuscular Hemoglobin 29.2 pg (26-34); Mean Corpuscular Volume 84.8 fl (80-100); Nucleated Red Blood Cells Absolute Auto 0.000 K/mm3 (0.0-0.012); Nucleated Red Blood Cells Perc 0.0 % (0.0-0.2); Platelet Count Result 189 k/mm3 (150-375); Red Blood Count 3.87 M/mm3 (4.2-5.4); White Blood Count 9.2 K/mm3 (4.5-10.0)
[2025-01-31] MEDS: KETOROLAC 15 MG/ML VIAL (*BKC) IV PUSH (05:18)
[2025-01-31] MEDS: ACETAMINOPHEN 500 MG TABLET 1000 MG PO ×3 (05:19→16:56)
[2025-01-31 07:20] VITALS: BP 110/69; PULSE 68; RESP 16; TEMP 37.1; O2SAT 96
[2025-01-31] MEDS: DOCUSATE SODIUM 100 MG CAPSULE PO ×2 (08:23→16:56)
[2025-01-31] MEDS: SIMETHICONE 80 MG TAB.CHEW PO (08:23)
[2025-01-31] MEDS: MULTIVIT/MIN/PREN/FOL AC/IRON TABLET 1 TAB PO (08:24)
--- NOTE | 2025-01-31 08:41 | WPDANLDNPN2 ---
Anes-Prog Note L&D-Neuraxial Date/Time: 01/31/25 08:41 Neuraxial medications: intrathecal PF morphine Opiod-related complaints: none Patient feedback: Patient satisfied with post-operative pain management.
--- NOTE | 2025-01-31 08:41 | WPDANLDPN2 ---
Anes-Prog Note L&D Date/Time: 01/31/25 08:41 Comfortable throughout: section Neuraxial method: spinal Epidural/Spinal procedure site: clean & non-tender Neuro status: Neuro function grossly intact. Cardiovascular status: normal Respiratory status: normal Airway patency: baseline Mental status: baseline Post-Op hydration status: normal Vital Signs: Last Vital Signs Temp 37.1 C 01/31/25 07:20 Pulse 68 01/31/25 07:20 Resp 16 01/31/25 07:20 BP 110/69 01/31/25 07:20 Pulse Ox 96 01/31/25 07:20 O2 Del Method Room Air 01/30/25 14:15 Pain score (VAS): 1 I/O: Intake & Output 01/30/25 01/31/25 01/31/25 23:59 07:59 15:59 Intake Total 300 550 421 Output Total 1550 1400 400 Balance -9225 -892 21 Patient feedback: Patient satisfied with anesthetic care.
--- NOTE | 2025-01-31 10:30 | PC.NURSE ---
Mother verbalizes she is able to independently latch with appropriate positioning and alignment. She denies any nipple discomfort and is responsively . Infant is currently meeting outcomes for weight, output, jaundice, blood sugar and feeding frequencies of 8-12 times in 24 hours. Mother declines any additional assistance or education at this time. Mother is encouraged to call for assistance if her infant doesn?t latch, pain with latching, questions or concerns. Mother voiced understanding of information shared along with the mom/baby guide for an additional resource. Reported to the Primary RN.
[2025-01-31] MEDS: IBUPROFEN 600 MG TABLET PO ×2 (11:04→16:56)
[2025-01-31 11:28] VITALS: BP 115/66; PULSE 75; RESP 16; TEMP 37.3; O2SAT 96
--- NOTE | 2025-01-31 12:10 | PC.NURSE ---
Breast pump provided due to [maternal request]. Instructions given on cleaning, care, usage, that there should be no pain, pumping schedule for milk production, collection, and storage of human milk. Patient was assessed for correct flange size (24mm), to pump for adequate milk production every 3 hours (8 times in 24 hours) 1-2 times at night. Mother voiced understanding of the education shared along with mom/baby guide and the pump measurement, flange fit handout for additional resource information. Reported to the Primary RN.
--- NOTE | 2025-01-31 12:39 | P.PNOB_ITS ---
OB - PN: Subj Subjective Date/time seen: 01/31/25 12:39 Patient comments: no complaints, pain well controlled, tolerating diet and flatus present OB - PN: Obj Data Labs 01/31/25 04:54 01/30/25 08:11 Labs: Laboratory Results - last 24 hr 01/31/25 04:54 WBC 9.2 RBC 3.87 L Hgb 11.3 L Hct 32.8 L MCV 84.8 MCH 29.2 MCHC 34.5 RDW 13.2 Plt Count 189 MPV 9.6 Immature Gran % (Auto) 0.3 Neut % (Auto) 77.2 H Lymph % (Auto) 15.6 L Hamlin % (Auto) 5.6 Eos % (Auto) 1.0 Baso % (Auto) 0.3 Lymph # (Auto) 1.44 Hamlin # (Auto) 0.5 Eos # (Auto) 0.1 Baso # (Auto) 0.0 Abs Immat Gran (auto) 0.03 Absolute Neuts (auto) 7.1 H Absolute Nucleated RBC 0.000 Nucleated RBC % 0.0 OB - PN A/P Plan day: 1 Comments: Post Op LTCS - no problems, routine recovery Time Spent With Patient Time: Total time spent is greater than 50% in coordination of care (as documented) at patient's floor/unit and/or counseling patient: Exam 2 Const: General: cooperative, healthy appearing, comfortable and no acute distress Resp: Auscultation: no crackles, no rales, no rhonchi and no wheezes Cardio: Rhythm: regular rhythm Heart sounds: no click and no murmurs GI: Inspection: non-distended Auscultation: normal bowel sounds Extrem: General: normal to inspection, no pedal edema and no calf tenderness
[2025-01-31 16:09] VITALS: BP 138/85; PULSE 83; RESP 14; TEMP 37.1; O2SAT 98
--- NOTE | 2025-02-21 18:58 | P.DS_ITS ---
DS: Admitting Diagnosis Discharge Date 01/31/25 Admitting Diagnosis term DS: Discharge Diagnosis Discharge Diagnosis (1) Previous delivery, delivered: Code(s): O34.219 - Maternal care for unspecified type scar from previous delivery Status: Acute OB - DS: Summary OB Procedures : None OB Procedures Intrapartum: OB Procedures: : None Peripartum Data Procedures: Procedures Operation Date: 01/30/25 10:00 Actual Procedure Side Surgeon p Section Bilateral Milan Padron MD Time Spent with Patient Time attestation: Total time spent providing and/or coordinating discharge services: Discharge Plan Discharge Attending physician on discharge: Milan Padron Consulting providers: Quintin Sanders; Henrique Diamond Discharging Clinician: Milan Padron Anticipated Discharge Date/Time: 01/31/25 16:16 Patient Disposition: Home Activity: may shower Diet: regular Wound Care Instructions: follow printed instructions and incision open to air Discharge Instructions: Education: Mom and Baby Guide Given to: Mother Follow-Up: Call your delivering provider's office for an appointment to be seen in: 1 Week Mom and baby should come to the [facility] for the follow-up appointment. Appointment Date/Time: February 02, 2025 at 10:00 am What to expect at your follow-up visit: Blood Pressure Check Physical Assessment Call [phone] if you are unable to keep your appointment time. BREAST CARE: * Wear a snug supportive bra. * For engorgement discomfort: Breast Feeding: * Apply warm moist washcloths * Express milk as needed to relieve engorgement * Wear loose clothing Bottle Feeding: * May apply ice packs * For sore nipples: * Identify correct latch-on * Apply warm moist washcloths before and after nursing * Air dry nipples after nursing * May apply Lansinoh cream to nipples ABDOMINAL INCISION: (if applicable) * Allow incision to air dry * Do NOT use lotions for powders on your incision * When showering, allow soap and water to run over the incision, but do not wash incision ACTIVITY: * Rest as much as possible. * Do not exercise or lift anything heavier than your baby (such as laundry or other children.) * Avoid stairs or driving as much as possible. * Do not put anything into the vagina. No douching, tampons, or sexual activity until seen by physician. NOTIFY PHYSICIAN IF YOU HAVE ANY QUESTIONS OR IF ANY OF THE FOLLOWING SYMPTOMS OCCUR: * If your episiotomy or incision becomes red, swollen, or more painful than what you have experienced in the hospital. * If your vaginal bleeding becomes foul smelling. * If your vaginal bleeding becomes more heavy than a period or if your bleeding changes from pink to bright red. However, you may pass an occasional walnut- sized clot once or twice for the first week . * If you experience a sharp, shooting pain in you calves. * If you discover a hard, reddened area on your breast or if you experience flu- like symptoms. DIET: * Eat regular, well-balanced meals. * Drink plenty of fluids daily. If , drink to thirst. Patient Language: Australian Stand Alone Forms: General Discharge Information Follow-up/Referrals: Milan Padron MD [Physician] Discharge Medications: Continued prenat.vits,blanquita,[id number] Tablet 1 tablet PO DAILY Date of admission: 01/30/25 07:42 Primary Care Provider: PHYSICIAN,MARGIN ANALYST Admitting Provider: Milan Padron Attending physician on admission: Milan Padron Condition: Stable
== END 2025-01-31 17:05 | disposition home or self-care (01) | DRG 540 ==
LOC: ANHLDR 07:45 → ANHOB2 13:56
PROVIDERS: Admitting Provider Obstetrics & Gynecology; Visit Provider Obstetrics & Gynecology
PROC: 10D00Z1 Extraction of Products of Conception, Low, Open Approach (ICD-10-PCS; CPT 59514; principal; 2025-01-30 10:00)
DX: O34.211 Maternal care for low transverse scar from previous cesarean delivery (principal); Z37.0 Single live birth; Z3A.37 37 weeks gestation of pregnancy
CPT/HCPCS: 36415; 80053; 85025; 86593; A9270; J1885; J2274; J2405; J7120

== ENCOUNTER 2025-03-11 12:50 | Outpatient (CLI) | payer OTHER, SELFPAY ==
--- OUTSIDE RECORDS SUMMARY | 2025-03-11 12:52 | XMS_ITS | Clinical Summary ---
Author Organization [facility] Address [address] [place] [address] Care Team Providers Care Rigging Slinger Name Role Phone None, Provider MD Primary [...] on file Legal Sex Female 9:08 PM RIPENING ROOM HAND Gender Identity Not on file Sexual Orientation [...] Cancer Screening 01/26/2024 COVID-19 Vaccine (2023- season) 2025 DTaP, Tdap and Td Vaccines (2 - [...] patient's age to complete this topic Insurance [facility] Advance Directives * Full Code (Latest Code Status on File) Date Activated Date Inactivated Comments 01/11/2020 7:45 PM 01/15/2020 4:22 PM Care Teams Rigging Slinger Relationship Specialty Start Date End Date None, Provider, PCP - General 01/11/20
--- OUTSIDE RECORDS SUMMARY | 2025-03-11 12:52 | XMS_ITS | Encounter Summary ---
Author Organization [facility] Address [address] [place] [address] Care Team Providers Care Nuclear Operator Name Role Phone None, Provider Primary Care Provider Unavaila ble Encounter Details Date Type Department Care Team (Late st Contact Info) Description 01/15/2021 Lecere Message Enc [facility] [address] [place] [address] Macie Tracy, 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
--- OUTSIDE RECORDS SUMMARY | 2025-03-11 12:52 | XMS_ITS | Encounter Summary ---
Author Organization [facility] Address [address] [place] [address] Phone Care Team Providers Care Certified Hyperbaric Technologist Name Role Phone Yulissa Rudolph NP Primary Care Provider + [phone] Encounter Details Date Type Department Care Team (Late st Contact Info) Description 06/06/[address] [facility] Medicine Reproductive Endocrinology [address] [address] Brianna De Leon MD [id number] [place] [address] Encounter for fertility testing (Primary Dx); [...] CDT Gender Identity Female 07/01/2019 6:12 PM HAMMER FITTER Sexual Orientation Straight 07/01/2019 6: 12 PM HAMMER FITTER documented as of this encounter Plan of Treatment Not on file documented as of this encounter Procedures Procedure Name Priority Date/Time Associated Diagnosis Comments PROGESTERONE Routine 06/08/2019 9:17 AM HAMMER FITTER Encounter for fertility testing documented in this encounter Results * Progesterone (06/08/2019 9:17 AM HAMMER FITTER) Progesterone 28.2 ng/mL [facility] - 01 Comment: Follicular phase 0.1 - 0.9 Luteal phase 1.8 - 23.9 Ovulation phase 0.1 - 12.0 First trimester 11.0 - 44.3 Second trimester 25.4 - 83.3 Third trimester 58.7 - 214.0 Postmenopausal 0.0 - 0.1 Blood specimen (specimen) 06/08/2019 9:17 AM HAMMER FITTER 06/08/2019 Narrative [facility] - 06/09/2019 6:08 AM HAMMER FITTER Performed at: 01 - [facility] [address] [id number] Nursing Home Social Worker: Kirt Harman PhD, Phone: [phone] us Brianna De Leon MD LAB BLOOD ORDERABLES Final R esult [facility] - 01 documented in this encounter Visit Diagnoses Diagnosis Encounter for fertility testing- Primary Encounter for other procreative management documented in this encounter Care Teams Certified Hyperbaric Technologist Relationship Specialty Start Date End Date Yulissa Rudolph NP PCP - General Obstetrics and Gynecology 01/19/19 documented as of this encounter
--- NOTE | 2025-03-11 13:00 | PC.NURSE ---
In- 1255 Out- 1350 Reason for visit: infant unable to maintain latch History: Gabby delivered by repeat complicated by preeclampsia. She has five year old twins and a 2 year old that she breastfed/pumped for. She says that she is an overproducer and is able to pump 4 ounces per breast every 3 hours. She pumps after each feeding. Gabby desires to feed baby directly at breast exclusively. Infant History: Camelia was born at 37 weeks gestation and was admitted to the NICU after the first day of life due to a lung infection. She remained in the NICU for 6 days before coming home. She had an NG tube and was given bottles with formula before discharge. Since coming home, baby has been unable to maintain a latch at the breast. She does take a bottle but struggles to transfer milk efficiently which leads to long bottle feedings. Mom had baby at the chiropractor this week due to tension in her neck. Mom feels that this bodywork has helped improve baby's range of motion and baby will continue weekly visits with the chiropractor. Observations: Gabby feeds baby in a cradle hold and is able to get the nipple into baby's mouth easily, but baby pushes the nipples out with her tongue on the first suck. We tried several times to have baby latch as deeply as possible without success. Baby was assessed for tongue/lip restriction and was found to be able to move her tongue to the roof of her mouth and out past her lower lip. The chiropractor mentioned the top lip may have a tie and baby does tend to roll the top lip in when bottle feeding. Infants head tilt to the left is obvious and she doesn't turn to the right side very much. When sucking on a gloved finger, there is chin quivering will each suck which indicates weak jaw muscles. This is very likely due to baby's muscle tension and inability to turn her head to the right. This seems the most likely cause of 's inability to maintain a latch because clamping her gums on the breast to try to create a seal is causing her to push the nipple out of her mouth with each suck. Mom has tried a nipple shield in the past and felt like baby was very 'messy' when feeding with the shield, letting milk run out of her mouth. Mom is open to trying the shield again. Mother shown how to apply shield and we reviewed how to clean and maintain the shield in between feedings. Baby starts with a shallow latch on the shield and mom is shown how to hold baby very close to the breast (chin touching, nose almost touching) so that she is not able to see the shield sliding in and out of baby's mouth with each suck. Baby must take the entire shield in her mouth and mom will have to assist her with staying close for the whole feeding. Reviewed that feeding only on the tip of the shield will not allow baby to transfer milk effectively. With the nipple shield, baby is able to maintain a latch and give short bursts of suckling with swallows noted after about 3-4 sucks, then pausing and taking 'catch up' breaths. Infant is not able to maintain a seal on the breast without the nipple shield. Baby fed for a total of about 15 minutes, with mom independently applying the shield and latching to the left breast in cradle hold. Suggested she may need to try football hold on the left breast if baby appears uncomfortable with positioning. Mom supplemented with a bottle of pumped milk after and baby was 'messy' with the bottle too and tends to push the nipple out of her mouth with her tongue. There is chin quivering noted with the bottle feeding. Mom says that it usually takes baby a long time to take a 4 ounce bottle. Baby only took 2 ounces at this time. weight: 7-1 Last weight: 10-2 (earlier this week per mom) Pre-feed weight: 4988 Post-feed weight: 4994 Total transfer of 6mls of milk from the left breast in about 5 minutes Plan of Care: Gabby agrees to continue using the shield and allowing baby to practice at breast at the beginning of each feeding. Mom is advised to allow baby 15 minutes at breast while she is still showing muscle tension/weakness so that she is not working hard to transfer only small volumes, and then having to bottle feed after as well. We reviewed risks of using the nipple shield and how to wean from the shield when baby is ready. It will most likely take some time for baby's muscles to strengthen and for her neck to have better range of motion. This will assist with her jaw strength and hopefully will lead to latching without the shield. Mom will follow up with her primary dinkey skinner for any further recommendation on tongue ties and oral assessment. It does not appear that a tight frenulum (lip or tongue) is the cause of baby's latch issues. She will continue weekly visits with her chiropractor. Follow up plans: Gabby and Camelia may return for a follow up visit or a weighted feeding with Lance Garcia at any time. Someone from the office will reach out to her in a few days to see how feedings are going with the shield. Patient will continue to follow up with her dinkey skinner and chiropractor appointments as scheduled.
== END 2025-03-11 12:51 | disposition home or self-care (01) ==
LOC: ANHOBOP 12:51
PROVIDERS: Visit Provider Nurse Practitioner Pediatrics
DX: Z39.1 Encounter for care and examination of lactating mother (principal)
CPT/HCPCS: 99202; G0463